=== PATIENT | female | born 1950 | race Caucasian/White ===

== ENCOUNTER 2019-06-21 01:14 | Outpatient (CLI) | payer MEDICARE, BC, SELFPAY ==
--- NOTE | 2019-06-21 10:24 | DI.MAMMO_ITS ---
EXAM: MG MAMMO SCREENING CLINICAL HISTORY: screening TECHNIQUE: Mammograms were interpreted according to the usual protocol including computer analysis w [employer] CAD system, tomosynthesis and C-view imaging. COMPARISON: [id number] FINDINGS: The breasts are composed of heterogeneously dense tissue, which may obscure small masses, breast dens ity category C. There are no suspicious masses or suspicious microcalcifications. There has been no significant chagne when compared with prior images. IMPRESSION: Category 1, negative mammogram. Routine yearly screening is recommended. BI-RADS Cat 1 - Negative Breast Density - Category C - Heterogeneously dense
== END 2019-06-21 01:34 ==
PROVIDERS: PCP Family Medicine; Visit Provider Family Medicine
DX: Z12.31 Encounter for screening mammogram for malignant neoplasm of breast (principal); Z12.11 Encounter for screening for malignant neoplasm of colon; Z80.0 Family history of malignant neoplasm of digestive organs; Z86.010 Personal history of colon polyps
CPT/HCPCS: 77063; 77067

== ENCOUNTER 2019-06-21 07:10 | Outpatient (CLI) | payer MEDICARE, BC, SELFPAY ==
[2019-06-21 07:38] LABS: HCT 41.3 % (36.0-46.0); HGB 13.8 g/dL (12.0-15.5); Mean Corp. HGB Concentration 33.4 g/dL (32.0-36.0); Mean Corpuscular Hemoglobin 30.1 pg (27.0-33.0); Mean Corpuscular Volume 90.2 fL (80-95); Platelet Count 229 x1000/uL (130-400); RBC 4.58 m/cumm (4.00-5.20); RBC Distribution Width 13.2 % (11.7-14.6); White Blood Cell Count 5.42 k/cumm (4.4-10.8)
[2019-06-21 08:05] LABS: Hemoglobin A1C 5.3 % (4.5-6.2)
[2019-06-21 11:15] LABS: Calculated LDL 183 mg/dL; Cholesterol 263 mg/dL (50-200); HDL Cholesterol 50 mg/dL (40-60); Triglyceride 153 mg/dL (30-150); Vitamin B12 643 pg/mL (193-986)
[2019-06-21 16:47] LABS: CRP, High Sensitivity 1.21 mg/L
[2019-06-23 06:02] LABS: Vitamin D 25 Total 67.2 ng/ml (30-100)
== END 2019-06-21 07:30 ==
PROVIDERS: PCP Family Medicine; Visit Provider Family Medicine
DX: F32.9 Major depressive disorder, single episode, unspecified (principal); F98.8 Other specified behavioral and emotional disorders with onset usually occurring in childhood and adolescence; R53.82 Chronic fatigue, unspecified; Z87.898 Personal history of other specified conditions; R00.0 Tachycardia, unspecified; E78.5 Hyperlipidemia, unspecified; R53.83 Other fatigue; M85.80 Other specified disorders of bone density and structure, unspecified site
CPT/HCPCS: 36415; 80061; 82306; 85027; 86141; 82607; 83036; 84443

== ENCOUNTER 2019-06-27 11:09 | Day surgery (SDC) | payer MEDICARE, BC, SELFPAY ==
--- NOTE | 2019-06-27 07:08 | W.COLOREPORT ---
Date of service: 06/27/19 Time of Service: 12:25 Colonoscopy Report Date of procedure: 06/27/19 Pre-op diagnosis general: Hx of polyps and Family history of colon cancer Post-op diagnosis procedure note: same (and diverticulosis and small polyp) Procedure: Colonoscopy with polypectomy by cold forceps Surgeon: Kenyatta Rose Anesthesia proc note operative: other (General/ ASA 2/Cristhian Mckeon, PEDRO) Estimated blood loss (mL): 3 Pathology: other (Transverse polyp) Complications: None Disposition: same day Indications: 68 year old female with a family history of colon cancer in her mother. Her mother was in her early 80s when she was diagnosed with colon cancer. The patient also has a past history of colon polyps. Her last colonoscopy was in 2013. Risks, benefits and complications have been reviewed. Complications include but are not limited to bleeding, pain, perforation, missed small lesion/polyp, sore throat, aspiration and adverse reaction to the medications. Questions were entertained and answered to their satisfaction and they wished to proceed. No guarantees were given or implied. Prep: Miralax/Dulcolax Procedure Start Time: 12:25 Procedure End Time: 12:52 Retraction Time: 15 minutes Findings: small polyp in the transverse colon, internal hemorrhoids and skin tags as well as moderate diverticulosis Procedure Description: After informed consent was obtained the patient was taken to the procedure room and placed in a left decubitous position. Monitors were applied and a time out was done. The patients name, date of , procedure, allergies to medications and metal in their body was reviewed. The patient was then sedated. Once sedated and comfortable a rectal exam was done. External exam was normal. Internal exam revealed a normal sphincter tone and no palpable masses. The scope was then introduced and retro-flexed. Small internal hemorrhoids, and 2 skin tags were identified on retrofelxion.. The scope was then advanced to the cecum without difficulty. The TI and appendiceal orifice were identified. The prep was adequate. The scope was then slowly retracted over 15 minutes back into the rectum. Polyps were removed with cold forceps in the transverse colon. There was moderate diverticulosis of the descending and sigmoid colon. The scope was removed and the patient was woken up and taken back to Same day surgery in stable condition. The patient tolerated the procedure well and there were no immediate complications. Follow up: The patient should follow up in 3-5 years unless they develop changes in bowel habits or other new gastrointestinal complaints.
--- NOTE | 2019-06-27 07:09 | W.PM.DSUDISC ---
Discharge Plan Disposition Patient Disposition: HOME Condition: Good Discharge Details Reason For Visit: Hx of colon polyps, Family history of colon cancer Attending Provider: Kenyatta Rose Primary Care Provider: Beatrice Dickens Home Meds and New Rx's Prescriptions: Continued magnesium glycinate 100 mg tablet 200 mg PO DAILY RF: 0 calcium carbonate [Calcium Antacid] 300 mg (750 mg) tablet,chewable 300 mg PO DAILY RF: 0 niacin 500 mg tablet 500 mg PO DAILY RF: 0 cyanocobalamin (vitamin B-12) 1,000 mcg capsule 1,000 mcg PO DAILY RF: 0 triamcinolone acetonide 0.1 % ointment 1 applic Topical BID PRN (Reason: rash) Qty: 80 RF: 4 vitamin E mixed 400 UNIT capsule 400 unit PO DAILY RF: 0 vitamin A 25,000 UNIT capsule 25,000 units PO 3x/week RF: 0 Fish Oil 500 MG capsule,delayed release(DR/EC) 1,000 mg PO DAILY RF: 0 ascorbic acid (vitamin C) [Vitamin C] 500 MG tablet 500 mg PO DAILY RF: 0 cholecalciferol (vitamin D3) 10,000 UNIT capsule 10,000 unit PO DAILY RF: 0 methylphenidate HCl 10 mg tablet 10 mg PO TID MDD 3 PRNRF: 0 cetirizine 10 mg Tablet 10 mg PO DAILY PRNRF: 0 vit B6-mag cit,oxid-potass cit 3.75-45-45-49.5 mg Tablet Extended Release 66 PO RF: 0 thiamine HCl (vitamin B1) 50 mg Tablet 6.7 mg PO DAILY RF: 0 riboflavin (vitamin B2) 25 mg Tablet 6.7 mg PO DAILY RF: 0 biotin 1,000 mcg Tablet,Chewable 200 mcg PO DAILY RF: 0 chromium chloride 4 mcg/mL Solution 33.3 mcg RF: 0 omega 0-hmc-snk-fish oil [Fish Oil] 1,000 mg (120 mg-180 mg) Capsule 1 cap PO DAILY RF: 0 Discontinued bisacodyl [Dulcolax (bisacodyl)] 5 mg tablet,delayed release (DR/EC) 5 mg PO ONCE Qty: 4 RF: 0 polyethylene glycol 3350 17 gram powder in packet 255 g PO DAILY Qty: 15 RF: 0 Discharge Instructions Instructions: Colonoscopy (DC), Diverticulosis (DC), Hemorrhoids (DC) Additional Instructions: Findings: internal hemorrhoids and skin tags One polyp Diverticulosis Follow up: 3-5 years Please call if you develop: fevers >101.5 Nausea or Vomiting Abdominal pain that is not transient DAY SURGERY UNIT POST ENDOSCOPY INSTRUCTIONS 1. Because there will be medication in your system for the next 24 hours, you may feel a little sleepy. Your coordination will be affected. Therefore: a. Do not drive or operate dangerous equipment for 24 hours. b. Do not drink alcohol beverages for 24 hours (not even beer). c. Plan to go home and rest for the day. 2. Generally there are no restrictions on your activity after a day or so has gone by, but you may feel a bit fatigued for a few days. 3 After you arrive home you may have a light meal and return to a normal diet as you can tolerate it without feeling sick to your stomach. 4. After surgery, you may feel pain or discomfort. This should be only transient, but if it persists please contact your doctor. 5. If there are any questions regarding the findings of your procedure, please feel free to contact your doctor. 6. If you are unable to contact your doctor with a problem, contact the hospital at [phone]. 7. Continue all your regular medications unless directed otherwise. I understand the above instructions and have no questions. Signature of Patient or Responsible Adult Escort Date/Time Name of Responsible Adult Escort Signature of Nurse Date/Time Activity:: Activity as Tolerated Diet:: High Fiber Diet Discharge Orders Discharge Orders: Discharge Order (Routine); Ordered 06/27/19 Ordered By: Kenyatta Rose DS: Diagnosis Discharge Diagnosis (1) Hx of colonic polyps: Status: Acute (2) Family history of colon cancer: Status: Acute (3) Colonoscopy - MAC: Status: None (4) Diverticulosis: Status: Acute
[2019-06-27 11:39] VITALS: BP 115/60; PULSE 62; RESP 16; TEMP 36.5; O2SAT 98
[2019-06-27] MEDS: Lactated Ringers 1,000 ML 80 ML IV (11:45)
--- NOTE | 2019-06-27 12:45 | BOWEL_PTH ---
PATIENT: Sarah Wiggins LOC: [facility] U#:[id number] AGE/SX: 68/F ROOM: RE06/27/[address]: Kenyatta Rose MD : 1950 BED: DIS: 06/27/2019 SPEC #: [id number] RECD: 06/27/19 13:05 STATUS: MARIAM REQ #: [id number] SEBAS: 06/27/19 12:[address]: Kenyatta Rose DEPT: Surgical Specimen RECD BY: Val Garvin ENTERED: 06/27/19 13:06 SP TYPE: Bowel OTHR DR: Beatrice Dickens MD, DC Tissues: 1 - BIOPSY BOWEL Procedures: GROSS AND MICRO LEVEL 4 Comments: [id number]
[2019-06-27 13:25] VITALS: BP 97/64; PULSE 59; RESP 18; TEMP 35.9; O2SAT 99
== END 2019-06-27 14:09 | disposition home or self-care (01) ==
LOC: SUR 11:10
PROVIDERS: PCP Family Medicine; Visit Provider Surgery
PROC: 0DJD8ZZ Inspection of Lower Intestinal Tract, Via Natural or Artificial Opening Endoscopic (ICD-10-PCS; CPT 45378; principal; 2019-06-27 12:30)
DX: Z12.11 Encounter for screening for malignant neoplasm of colon (principal); K63.89 Other specified diseases of intestine; Z86.010 Personal history of colon polyps; K57.30 Diverticulosis of large intestine without perforation or abscess without bleeding; Z80.0 Family history of malignant neoplasm of digestive organs; G47.33 Obstructive sleep apnea (adult) (pediatric)
CPT/HCPCS: 45380; 88305

== ENCOUNTER 2020-03-06 03:24 | Outpatient (CLI) | payer MEDICARE, BC, SELFPAY ==
[2020-03-06 10:33] LABS: ALT 24 U/L (14-59); AST 16 U/L (15-37); Alkaline Phosphatase 77 U/L (46-116); BUN 15 mg/dL (7-18); Bilirubin, Total 0.3 mg/dL (0.2-1.0); CREATININE 0.94 mg/dL (0.55-1.02); Calculated LDL 160 mg/dL (<100); Chloride 104 mmol/L (98-107); Cholesterol 250 mg/dL (<200); Estimated GFR 59.04 (mL/min/1.73m2); Glucose 92 mg/dL (74-106); HDL Cholesterol 44 mg/dL (40-60); Potassium 4.1 mmol/L (3.5-5.1); Sodium 141 mmol/L (136-145); TSH (W/Ref FT4) 0.66 uIU/mL (0.36-3.74); Total Protein 6.9 g/dL (6.4-8.2); Triglyceride 230 mg/dL (<150)
== END 2020-03-06 03:44 ==
PROVIDERS: PCP Family Medicine; Visit Provider Family Medicine
DX: E53.8 Deficiency of other specified B group vitamins (principal); E78.5 Hyperlipidemia, unspecified; R42 Dizziness and giddiness; R53.82 Chronic fatigue, unspecified
CPT/HCPCS: 36415; 80053; 80061; 84443

== ENCOUNTER 2021-02-21 02:45 | Outpatient (CLI) | payer MEDICARE, BC, SELFPAY ==
--- NOTE | 2021-02-21 08:45 | DI.DEXA_ITS ---
Exam(s) XR DEXA BONE DENSITY W/WO KARAN EXAM: XR DEXA BONE DENSITY W/WO KARAN CLINICAL HISTORY: osteoporosis,M81.0 TECHNIQUE: Routine DEXA evaluation of the lumbar spine, hip, or forearm. COMPARISON: Prior DEXA scan performed July 2009 FINDINGS: Performed on a SDI unit. Lateral image: No compression fracture evident. Lumbar Spine total T-score: -1.4 . prior 2008 reading was -0.5 Hip total T-score:0.3 . Prior 2008 reading was 0.8 Forearm total T-score: -0.5 . Prior 2008 reading was 0.8 IMPRESSION: Bone mineral density measures in the osteopenia range. Fracture risk is moderate. Note: Any spine fracture indicates 5x risk for subsequent spine fracture and 2x risk for subsequent h ip fracture. World Health Organization criteria for BMD interpretation classify patients: Normal...... T- Score at or above -1.0 Osteopenic... T- Score between -1.0 and -2.5 Osteoporosis... T-Score at or below -2.5
== END 2021-02-21 03:05 ==
PROVIDERS: PCP Family Medicine; Visit Provider Family Medicine
DX: R93.7 Abnormal findings on diagnostic imaging of other parts of musculoskeletal system; M81.0 Age-related osteoporosis without current pathological fracture
CPT/HCPCS: 77080

== ENCOUNTER 2021-06-06 02:12 | Outpatient (CLI) | payer MEDICARE, BC, SELFPAY ==
--- NOTE | 2021-06-06 11:29 | DI.US_ITS ---
APPROVED REPORT EXAM: Comprehensive 2D, Doppler, and color-flow Echocardiogram Patient Location: Out-Patient Forensic Psychologist: Edwige Combs RDCS (AE) Indications: SOB, Chest pain Other Information Study Quality: Good Conclusion Normal left ventricular wall thickness and chamber size. Estimated ejection fraction is 60%. Wall m otion is normal Normal right ventricular size and systolic function Both atria are normal in size There is no significant valvular disease Normal estimated right ventricular systolic pressure 26 mmHg Borderline dilated ascending aorta Wall motion Left Ventricle The left ventricle is normal size. The left ventricular systolic function is normal. The left ventric ular ejection fraction is within the normal range. There is normal left ventricular wall thickness. T here is normal LV segmental wall motion. There is no ventricular septal defect visualized. LVEF is 61 %. Right Ventricle The right ventricle is normal size. The right ventricular systolic function is normal. The RVSP is 26 .6mmHg. Atria The left atrium size is normal. The right atrium size is normal. The interatrial septum is intact wit h no evidence for an atrial septal defect. Aortic Valve The aortic valve is normal in structure. Aortic valve is trileaflet. There is no aortic valvular sten osis. No aortic regurgitation is present. Mitral Valve The mitral valve is normal in structure. No evidence of mitral valve stenosis. Trace mitral regurgita tion. Tricuspid Valve The tricuspid valve is normal in structure. There is no tricuspid valve stenosis. Mild tricuspid regu rgitation. Pulmonic Valve The pulmonary valve is normal in structure. There is no pulmonic valvular stenosis. There is no pulmo raysa valvular regurgitation. Great Vessels The aortic root is normal in size. The ascending aorta is borderline dilated. IVC is normal in size a nd collapses >50% with inspiration. Pericardium There is no pericardial effusion. 2D Dimensions IVSD d PLAX 0.82 cm F: 0.6-1.0 LV Vol A2C d MOD 73.2 mL LVPW d PLAX 0.83 cm F: 0.6 - 1.0 LV Vol A4C d MOD 61.8 mL LVID d PLAX 4.08 cm F: 3.8 - 5.2 LA vol/ BSA A4C s A-L 13.9 mL/m2 LVDs 2.70 cm F: 2.2 - 3.5 LA Area A4C s MOD 11.31 cm2 Ao Root d 2.99 cm F: 2.7 - 3.3 LV EF A4C MOD 61.3 % RA Area A4C 9.05 cm2 LV EF A2C MOD 61.0 % RA Vol/ BSA A4C s A-L 10.1 mL/m2 LV EF Biplane MOD 61.4 % Ao Asc Diam d 3.38 cm F: 2.3 - 3.1 SV 41.38 mL LV EF Teichholz 61.9 % SV Index 22.88 mL/m2 LVEF (Navarro's) 61.39 % F: 54 - 74 LV Volume 52.34 mL F: 46 - 106 LV Volume Index 28.91 mL/m2 F: 29 - 61 LV Vol Biplane MOD 67.4 mL FS 32.85 % M-Mode TAPSE 2.88 cm (M/F) >1.7 LV Diastology MV E' medial 0.086 (>0.07 m/s) E/A Ratio 0.8 LV E/e MED 8.90 (<14) MV E Vmax 0.76 (0.4-1.3 m/s) MV E' lateral 0.099 (>0.1 m/s) MV A Vmax 1.00 (0.4-1.3 m/s) LV E/e LAT 7.70 (<14) MV E/A Ratio 0.75 MV E/E' medial 8.91 MV E/E' lateral 7.70 Aortic Valve LVOT Area 3.19 cm2 AoV Area Vmax 2.31 cm2 LVOT Vmax 0.96 m/s AoV Area/ BSA (Vmax) 1.28 cm2/m2 LVOT Mean Zenon. 0.58 m/s SANIA Mean Zenon. 2.07 cm2 LVOT Peak Grad 3.7 mmHg SANIA Mean Zenon. Index 1.15 cm2/m2 LVOT Mean Grad 1.6 mmHg LVOT VTI 0.233 m LVOT Diam s 2.00 cm AoV Vmax 1.32 m/s Velocity Ratio 0.72 AoV Mean Zenon. 0.89 m/s AoV Peak Grad 7.0 mmHg LVOT SV 74.22 mL AoV Mean Grad 3.6 mmHg AoV VTI 0.311 m AoV Area VTI 2.39 cm2 AoV Area/ BSA (VTI) 1.32 cm/m2 Mitral Valve MV DT 290 (160-240 msec) MV PHT 84 msec MV Area PHT 2.62 cm2 MV VTI 0.416 m MV Area VTI 1.79 (4.0-6.0 cm2) Pulmonary Valve PV Vmax 0.79 (0.5-1.5 m/s) RVOT Peak Gr. 1.42 mmHg PV Peak Grad 2.5 mmHg RVOT Mean Gr. 0.80 mmHg PV Mean Grad 1.4 mmHg RVOT VTI 0.136 m PV VTI 0.187 m RVOT Vmax 0.60 m/s Tricuspid Valve TR Peak Grad 23.6 mmHg TR Vmax 2.43 m/s RA Pressure 3.00 mmHg RVSP (TR) 26.6 mmHg
--- NOTE | 2021-06-06 12:57 | DI.MAMMO_ITS ---
Exam(s) MAMMO SCREENING EXAM: MAMMO SCREENING CLINICAL HISTORY: screening,z12.39 TECHNIQUE: Bilateral full field digital CC and MLO mammographic images were obtained with 3D tomosyn thesis and utilizing computer aided detection (CAD). COMPARISON: Available for comparison. FINDINGS: Masses/Architectural Distortion: None seen. Microcalcifications: No suspicious pleomorphic-type are seen. Skin Thickening/Nipple Retraction: None. IMPRESSION: 1. No significant interval change with no specific features of malignancy noted. 2. Unless there is more urgent need, screening mammography is recommended, as per [employer] guidelines. BI-RADS Category 1 - Negative Breast Density - Category C - Heterogeneously dense Breast density category C or D implies that the patient has dense breast tissue. Dense breast tissue is very common and is not abnormal but dense breast tissue can make it harder to find cancer on a ma mmogram. Also, dense breast tissue may increase their breast cancer risk. This information about the result of the mammogram report was provided to the patient to raise their awareness. Use this report when you speak with the patient about their risks for breast cancer, which includes their family hist ory. At that time, you may recommend for more screening tests (Ultrasound or MRI) as they might be us eful based on their risk. A negative radiographic report should not delay biopsy if a dominant or clinically suspicious mass is present. Up to ten percent of cancers are not identified on mammography. A negative report may reinforce clinical impression. Adenosis and dense breasts may obscure an underlying neoplasm. False positive reports average 6 to 10%. Patient will receive a letter notifying them of these results.
== END 2021-06-06 02:32 ==
PROVIDERS: PCP Family Medicine; Visit Provider Family Medicine
DX: R07.9 Chest pain, unspecified (principal); Z12.31 Encounter for screening mammogram for malignant neoplasm of breast; R06.02 Shortness of breath; I77.810 Thoracic aortic ectasia
CPT/HCPCS: 77063; 77067; 93306

== ENCOUNTER 2021-06-06 03:13 | Outpatient (CLI) | payer MEDICARE, BC, SELFPAY ==
[2021-06-06 11:09] LABS: HGB 13.2 g/dL (11.2-15.7); MCH 29.3 pg (27.0-33.0); MCV 88.9 fL (80-95); MPV 9.8 fL (8.0-11.0); Platelet Count 210 10^3/uL (130-400); RDW 12.9 % (11.7-14.6); RDW-SD 42.1 fL; WBC 5.31 10^3/uL (4.4-10.8)
[2021-06-06 13:32] LABS: Vitamin D 25 Total 33.9 ng/mL (30-100)
[2021-06-06 13:38] LABS: ALT 45 U/L (14-59); AST 23 U/L (15-37); Alkaline Phosphatase 81 U/L (46-116); Anion Gap 9.4 mmol/L (3-11); BUN 16 mg/dL (7-18); Bilirubin, Total 0.2 mg/dL (0.2-1.0); CO2 27.6 mmol/L (21.0-32.0); CREATININE 0.9 mg/dL (0.55-1.02); Calcium 8.9 mg/dL (8.5-10.1); Chloride 105 mmol/L (98-107); Glucose 90 mg/dL (74-106); Potassium 4.2 mmol/L (3.5-5.1); Sodium 142 mmol/L (136-145); Total Protein 7.3 g/dL (6.4-8.2); Vitamin B12 470 pg/mL (193-986)
== END 2021-06-06 03:14 | disposition home or self-care (01) ==
LOC: LBO 03:13
PROVIDERS: PCP Family Medicine; Visit Provider Family Medicine
DX: E78.5 Hyperlipidemia, unspecified; R53.83 Other fatigue; N39.0 Urinary tract infection, site not specified; M81.0 Age-related osteoporosis without current pathological fracture; D49.2 Neoplasm of unspecified behavior of bone, soft tissue, and skin; M85.88 Other specified disorders of bone density and structure, other site
CPT/HCPCS: 36415; 80053; 82306; 85027; 82607; 83735

== ENCOUNTER 2023-02-10 02:07 | Outpatient (CLI) | payer MEDICARE, BC, SELFPAY ==
[2023-02-10 09:10] LABS: ALT 48 U/L (14-59); AST 26 U/L (15-37); Albumin 3.8 g/dL (3.4-5.0); Alkaline Phosphatase 82 U/L (46-116); Anion Gap 8.7 mmol/L (3-11); BUN 14 mg/dL (7-18); Bilirubin, Total 0.2 mg/dL (0.2-1.0); CO2 26.3 mmol/L (21.0-32.0); Calcium 8.7 mg/dL (8.5-10.1); Calculated LDL 136 mg/dL (<100); Chloride 107 mmol/L (98-107); Cholesterol 209 mg/dL (<200); Glucose 92 mg/dL (74-106); HDL Cholesterol 44 mg/dL (40-60); Potassium 3.9 mmol/L (3.5-5.1); Sodium 142 mmol/L (136-145); TSH (W/Ref FT4) 1.33 uIU/mL (0.36-3.74); Total Protein 7.3 g/dL (6.4-8.2); Triglyceride 147 mg/dL (<150)
[2023-02-10 09:29] LABS: CREATININE 1.1 mg/dL (0.55-1.02); Estimated GFR 53.39 (mL/min/1.73m2); NT-proBNP 36 pg/mL (<300)
== END 2023-02-10 02:08 | disposition home or self-care (01) ==
PROVIDERS: PCP Family Medicine; Visit Provider Family Medicine
DX: R06.02 Shortness of breath (principal); R53.83 Other fatigue; E78.5 Hyperlipidemia, unspecified
CPT/HCPCS: 36415; 80053; 80061; 94060; 94726; 94729; 83880; 84443

== ENCOUNTER 2023-02-10 02:15 | Outpatient (CLI) | payer MEDICARE, BC, SELFPAY ==
[2023-02-10] MEDS: Albuterol HFA 18 GM 200 PUFF INH IH (09:32)
[2023-02-10] MEDS: Inhaler, Assist Device 1 EACH MC (09:33)
--- NOTE | 2023-02-17 15:35 | W.PFT ---
Date of service: 02/10/23 Time of Service: 07:58 Pulmonary Function Test Result Indications: Chest Burning Interpretation Spirometry: No airflow limitation. No significant bronchodilator response. Lung Volumes: There is hyperinflation. Diffusion Capacity: Normal diffusion. Airway Pressure: Normal airways resistance. Impression Isolated hyperflation - this can represent asthma in the correct clinical situation. Clinical Correlation therefore is recommended.
--- NOTE | 2023-02-19 16:13 | W.PFT ---
Date of service: 02/10/23 Time of Service: 07:58 Pulmonary Function Test Result Indications: Chest burning Interpretation Spirometry: There is no airflow limitation. There is no significant bronchodilator response. Lung Volumes: Normal lung volumes. Diffusion Capacity: Normal diffusion. Airway Pressure: Normal airways resistance Impression Normal pulmonary function testing Clinical Correlation therefore is recommended.
== END 2023-02-10 02:16 | disposition home or self-care (01) ==
LOC: RT 02:15
PROVIDERS: PCP Family Medicine; Visit Provider Family Medicine
DX: R06.02 Shortness of breath (principal); Z86.16 Personal history of COVID-19; J45.909 Unspecified asthma, uncomplicated
CPT/HCPCS: 94060; 94726; 94729

== ENCOUNTER → 2024-04-04 18:51 | Outpatient (CLI) | payer MEDICARE, BC, SELFPAY ==
--- NOTE | 2024-04-04 12:49 | DI.RAD_ITS ---
Exam(s) XR LUMBAR SPINE COMPLETE EXAM: XR LUMBAR SPINE COMPLETE CLINICAL HISTORY: low back pain, charity hip pain, M25.551, M25.552. TECHNIQUE: 2D digital imaging was performed. COMPARISON: CR XR DEXA BONE DENSITY W/WO KARAN from 02/21/2021 FINDINGS: Five views No evidence of fracture or listhesis. No scoliosis. Mild disc space narrowing L5-S1 anterior osseou s lipping at this level as well as anterior osseous lipping at L4-5 level. There is no significant d isc space narrowing in the lumbar spine. There is some facet arthropathy at L4-5 and L5-S1 levels. The sacroiliac joints appear unremarkable. Bone density normal. No osseous lesions. IMPRESSION: Evidence of bilateral facet arthropathy L4-5 and L5-S1 levels. Mild disc space narrowing at L5-S1 level. DATA REPOSITORY: RADIATION DOSE DELIVERED:
--- NOTE | 2024-04-04 12:49 | DI.RAD_ITS ---
Exam(s) XR HIP PELVIS ADULT BL EXAM: XR HIP PELVIS ADULT BL CLINICAL HISTORY: hip pain rt, M25.551, hip pain lt, M25.552. TECHNIQUE: 2D digital imaging was performed. COMPARISON: No exams were available for comparison FINDINGS: 3 views No evidence of pelvic nor hip fractures. Bone density normal. No osseous lesions. No hip joint spa ce narrowing. Additional lateral views of both hips do not reveal osteophytes nor joint space narrow ing. However, on the lateral views there are small bony excrescence is seen off both femoral necks w hich may be related to an element of cam-type EMMA Sacroiliac joints appear unremarkable. IMPRESSION: No acute osseous findings in the pelvis and hips. No suggestion of can-type MRI acetabular impingement in both hips. DATA REPOSITORY: RADIATION DOSE DELIVERED:
--- OUTSIDE RECORDS SUMMARY | 2024-04-04 18:54 | XMS_ITS | Encounter Summary ---
Author Organization [facility] Address [address] [place] [address] Care Team Providers Care Square Shear Operator Name Role Phone Beatrice Dickens MD Primary Care Provider [phone] Encounter Details Date Type Department Care Team ([facility] st Contact Info) Description 07/07/2017 Pre-Procedure Orders Encounter [facility] General Surgery Unit [address] [place], [place] [address] Tish Zamora MD [address] [facility] [address] [place] [phone] External hemorrhoid (Primary Dx) Social History Tobacco Use Types Packs/Day Years Used Date Smoking Tobacco: Never Smokeless Tobacco: Never Alcohol Use Standard Drinks/Week Comments Yes 0 (1 standard drink = 0.6 oz pur e alcohol) rare Sex and Gender Information Value Date Recorded Sex Assigned at Not on file Gender Identity Not on file Sexual Orientation Not on file documented as of this encounter Plan of Treatment Not on file documented as of this encounter Visit Diagnoses Diagnosis External hemorrhoid- Primary External hemorrhoids without mention of complication documented in this encounter Care Teams Square Shear Operator Relationship Specialty Start Date End Date Beatrice Dickens MD [address] [place] [address] [address] [place] [id number] PCP - General 12/06/13 documented as of this encounter
--- OUTSIDE RECORDS SUMMARY | 2024-04-04 18:54 | XMS_ITS | Encounter Summary ---
Author Organization [facility] Address [address] [place] [address] Care Team Providers Care Skidder Loader Name Role Phone Beatrice Dickens MD Primary Care Provider [phone] Encounter Details Date Type Department Care Team ([facility] st Contact Info) Description 07/22/2019 Historical Results Only [facility] Lab - Main [place] [address] [place], [place] [id number] Cori Christensen PA-C [address] [facility] [place], [place] [id number] Social History Tobacco Use Types Packs/Day Years Used Date Smoking Tobacco: Never Smokeless Tobacco: Never Alcohol Use Standard Drinks/Week Comments Yes 0 (1 standard drink = 0.6 oz pur e alcohol) rare Sex and Gender Information Value Date Recorded Sex Assigned at Not on file Gender Identity Not on file Sexual Orientation Not on file documented as of this encounter Functional Status Functional Status Response Date of Assess ment Are you deaf or do you have serious difficulty h earing? No 07/08/2017 Are you blind or do you have serious difficulty seeing, even when wearing glasses? No 07/08/2017 Do you have serious difficul ty walking or climbing stairs? (5 years old or older) No 07/08/2017 Do you have difficulty dress ing or bathing? (5 years old or older) No 07/08/2017 Because of a physical, menta l, or emotional condition, does this person have difficulty doing errands alone such as visiting a doctor's office or shopping? No 08/12/2017 Cognitive Status Response Date of Assessm ent Because of a physical, menta l, or emotional condition, does this person have serious difficulty concentrating, remembering, or making decisions? No 08/12/2017 documented as of this encounter Plan of Treatment Not on file documented as of this encounter Procedures Procedure Name Priority Date/Time Associated Diagnosis Comments BACTERIAL CULTURE, URINE Routine 07/22/2019 10:13 EST documented in this encounter Results * BACTERIAL CULTURE, URINE (07/22/2019 10:13 EST) Urine Culture NEW ESBL RESULTS CALLED TO [facility] [place], 07/25/19 0923 07/25/2019 9:23 EST [facility] 07/25/2019 9:23 [facility] CitrateConcentration 10,000-100,00 0 CFU/ML 07/25/2019 9:23 [facility] 07/22/2019 10:1 3 EST 07/22/2019 12:42 EST Comment:VOID Narrative Organism Antibiotic Method Susceptibility Escherichia coli Ampicillin Sulbactam GRAM NEGAT COURT SUSCEPTIBILITY - [facility] >=32: Resistant Escherichia coli Ampicillin GRAM NEGATIVE SUSCEPTIBILITY - [facility] >=32: Resistant Escherichia coli Amoxicillin Clavulan ic acid GRAM NEGATIVE SUSCEPTIBILITY - [facility] 8: Susceptible Escherichia coli Ceftriaxone GRAM NEGATIVE SUSCEPTIBILITY - [facility] >=64: Resistant Escherichia coli Cefazolin GRAM NEGATIVE SUSCEPTIBILITY - [facility] >=64: Resistant Escherichia coli Ciprofloxacin GRAM NEGATIVE SUSCEPTIBILITY - [facility] <=0.25: Susceptible Escherichia coli Cefepime GRAM NEGATIVE SUSCEPTIBILITY - [facility] 2: Resistant Escherichia coli Ertapenem GRAM NEGATIVE SUSCEPTIBILITY - [facility] <=0.5: Susceptible Escherichia coli Nitrofurantoin GRAM NEGATIVE SUSCEPTIBILITY - [facility] <=16: Susceptible Escherichia coli Gentamicin GRAM NEGATIVE SUSCEPTIBILITY - [facility] <=1: Susceptible Escherichia coli Levofloxacin GRAM NEGATIVE SUSCEPTIBILITY - [facility] <=0.12: Susceptible Escherichia coli Piperacillin Tazobactam GRAM NEGATIVE SUSCEPTIBILITY - [facility] <=4: Susceptible Escherichia coli Trimethoprim-Sulfame th oxazole GRAM NEGATIVE SUSCEPTIBILITY - [facility] <=20: Susceptible Escherichia coli Tobramycin GRAM NEGATIVE SUSCEPTIBILITY - [facility] <=1: Susceptible Comment:See Reason(s) for St ud[facility] Cori Christensen PA-C MICROBIOLOGY - GENERAL ORDERABLES [facility] documented in this encounter Visit Diagnoses Not on filedocumented in this encounter Care Teams Skidder Loader Relationship Specialty Start Date End Date Beatrice Dickens MD [address] [place] [phone] PCP - General 12/06/13 documented as of this encounter
--- OUTSIDE RECORDS SUMMARY | 2024-04-04 18:54 | XMS_ITS | Encounter Summary ---
Author Organization [facility] Address [address] [place] [address] Care Team Providers Care Plant Facilities Technician Name Role Phone Beatrice Dickens MD Primary Care Provider [phone] Encounter Details Date Type Department Care Team (Latest Contact Info) Description 03/11/2022 [place] [address] Social History Tobacco Use Types Packs/Day Years Used Date Smoking Tobacco: Never Smokeless Tobacco: Never Alcohol Use Standard Drinks/Week Comments Yes 0 (1 standard drink = 0.6 oz pur e alcohol) rare Interpersonal Safety Answer Date Record ed Physically Hurt Never 04/01/2020 Verbally Threaten Not on file 04/01/2020 Sex and Gender Information Value Date Recorded [...] No 08/12/2017 documented as of this encounter Progress Notes * Rosie Ewing, PT - 03/11/2022 1130 EDT Outpatient Rehab Plan of Care ASSESSMENT Therapy Diagnosis: pain and decreased ROM of the jaw secondary to Bilat TMJ OA, cervicalgia, and masseter tightness Problem List: Decreased ROM, Need for an independent home exercise program, Pain and Postural deviation Assessment: Client is presenting with pain and soft tissue restrictions consistent with TMJDS. Notable tension and TTP bilat but R greater than the L. Responded well to stretches and the Realigning exercises. Was able to perform the rotation and translation exercises (phase 1) with no clicking of the R TMJ. Equipment Needed: none Barriers to Learning: none Potential Barriers to Progress: degenerative changes and long history of malalignment Response to Evaluation: Well Rehabilitation Potential: Motivation/Commitment to Therapy: Good Rehabilitation Potential: Good Short-Term Goals Timeframe: 4 weeks ( 04/08/22) Goals: Client to report compliance with HEP Client to report decreased clicking in the R TMJ with eating and yawning Client to report dcreased pain and tension in neck and jaw mm's. Long-Term Goals Timeframe: 8 weeks (05/06/22) Goals: Client to be independent with HEP and to tolerate progression of exercises to mandibular stabilization exercises -resisted ex's at one knuckle width apart with no added pain. Client ot have improved neck and Jaw ROM demonstrating decreased soft tissue tension To report minimal to no clicking with chewing foods PLAN Medical Necessity: Therapy intervention is indicated in order to return to a premorbid level of function or significantly improve current level of function. Physical Therapy is recommended for: Treatment Frequency/ Duration: 1 time per week for 8 sessions Therapy Treatment to include: 49084 - Therapeutic Exercise, 86205 - Neuromuscular Re-education and 87719 - Manual Therapy Recommended Consults: none currently Development of Plan of Care: Patient participated in development of plan of care today. Plan for next visit: manual therapy and review of HEP and progression as tolerated The patient has been instructed to contact our clinic if any questions or problems should arise Total treatment time: 60 minutes. Timed code treatment minutes: 15 minutes ATTENDING PHYSICIAN: Medicare certification needed. Your signature indicates you approve the therapy goals and plan of care outlined on this document dated 03/11/2022. Thank you! Attending Physician Signature Date ROSIE EWING PT 03/11/2022 11:29 documented in this encounter Plan of Treatment Not on file documented as of this encounter Visit Diagnoses Not on filedocumented in this encounter Care Teams Plant Facilities Technician Relationship Specialty Start Date End Date Beatrice Dickens MD [facility] [address] [place] [address] PCP - General 12/06/13 documented as of this encounter
--- OUTSIDE RECORDS SUMMARY | 2024-04-04 18:54 | XMS_ITS | Encounter Summary ---
Author Organization [facility] Address [address] [place] [address] Care Team Providers Care Reflector Driller And Deburrer Name Role Phone Beatrice Dickens MD Primary Care Provider [phone] Reason for Visit * Reason Comments Post-OP Follow Up post op excisional h emorrhoidectomy Encounter Details Date Type Department Care Team ([facility] Contact Info) Description 08/12/2017 13:45 EST Post-op Visit [facility] General Surgery - [address] [id number] Tish Zamora MD [address] [facility], [address] [place] [address] External hemorrhoid (Primary Dx) Social History Tobacco [...] on file documented as of this encounter Last Filed Vital Signs Vital Sign Reading Time Taken Comments Blood Pressure 110/74 08/12/2017 1345 EST Pulse 80 08/12/2017 1345 EST Temperature - - Respiratory Rate - - Oxygen Saturation - - Inhaled Oxygen Concentration - - Weight 71.7 kg (158 lb) 08/12/2017 1345 EST Height 162.6 cm (5' 4.02) 08/12/2017 1345 EST Body Mass Index 27.11 08/12/2017 1345 EST documented in this encounter Functional Status Functional Status Response [...] No 08/12/2017 documented as of this encounter Patient Instructions * Patient Instructions* Tish Zamora MD - 08/12/2017 13:45 EST Goal is 30gms of fiber a day. Maintain a high fiber diet (bran cereals, whole grain breads, lots of fruits and vegetables). Drink lots of water (at least 2L) throughout the day. Consider starting fiber supplementation--I would use the powder version rather than the pills: Benefiber (wheat dextran) 2 teaspoons, 1-3 times a day in a large glass of water. If too crampy/bloated, try synthetic fiber supplement (Beneful, Citrucel, FiberCon etc.) titrate to a toothpaste consistency bowel movement If stools are still hardened, use colace (over the counter stool softener) 100 mg 1-2 times daily If still having troubles with hardened stool, try miraLAX 1 cap 1-2 times daily Try putting your feet up on a 6-8inch stool (squatty potty). This may help you empty your rectum asit will straighten out your anorectal angle. Fiber will help bulk and soften your stools and prevent anal leakage which is a common cause of itching. Goal is 30gms of fiber a day. Maintain a high fiber diet (bran cereals, whole grain breads, lots of fruits and vegetables). Consider starting fiber supplementation--I would use the powder version rather than the pills: Benefiber (wheat dextran) 2 teaspoons, 1-3 times a day in a large glass of water. If too crampy/bloated, try synthetic fiber supplement (Beneful, Citrucel, FiberCon etc.) titrate to a toothpaste consistency bowel movement DO NOT USE ANY SOAP or medicated wipes (even if it is specified a gentle soap) when cleaning yourbottom--only water. After showering ensure your bottom is completely dry by using a hairdryer on the cold setting. Do not rub dry with a coarse towel. You may apply a thin layer of Calmoseptine. Can use a dry cotton gauze tucked between the cheeks at night to stay dry Avoid acidic foods and drinks, alcohol, caffeine documented in this encounter Progress Notes * Tish Zamora MD - 08/12/2017 8845 EST Subjective: Patient underwent excisional hemorrhoidectomy RP, LL including and inflammatory polyp 07/08. Pathology consistent with prolapsing tissue. She was kept overnight for her central sleep apnea. She is now having 1 or 2 soft bowel movements per day. She does have some urgency with them. She uses Colace and MiraLAX. She does not use fiber. Patient followed with Dr. Becerril in 2013 for internal hemorrhoids. She was banded at this point. Shestates that he had talked about surgery for some of the external hemorrhoid component, but she had not felt ready for that that time. Prior colonoscopy: March [address] Velez, normal colonoscopy. In 2005, she had a tubular adenoma in the sigmoid colon. Family history: Mother with colon cancer in her early 80s, 1 brother and 3 sisters with polyps. No inflammatory bowel disease. Current Outpatient Prescriptions: acetaminophen (TYLENOL) 500 mg tablet ascorbic acid, vitamin C, (VITAMIN C) 500 mg tablet cetirizine (ZYRTEC) 10 mg tablet Cholecalciferol, Vitamin D3, 2,000 unit capsule Chromium 200 mcg tablet cyanocobalamin (VITAMIN B-12) 500 mcg tablet docusate sodium (COLACE) 100 mg capsule folic acid (FOLVITE) 1 mg tablet ibuprofen (MOTRIN) 200 mg tablet tlazpl-notwlaps-jtokkkd (ZENPEP) 10,000-34,000 -55,000 unit per capsule Magnesium Glycinate 100 mg tablet methylphenidate (RITALIN;METHYLIN) 10 mg tablet naloxone (NARCAN) 4 mg/actuation nasal spray Yvoxx-3-NFX-EPA-Fish Oil (FISH OIL) 1,000 mg (120 mg-180 mg) capsule propranolol (INDERAL) 40 mg tablet tocopheryl acetate (VITAMIN E) 100 unit capsule Triamcinolone Acetonide (KENALOG) 0.025 % Lotion vitamin A 10,000 unit capsule No current facility-administered medications for this visit. There were no vitals taken for this visit. Objective: General: Alert and oriented x 3, in no apparent distress On external rectal exam, patient has well-healing hemorrhoidectomy sites with some external skin tags. A/P: Status post hemorrhoidectomy 2 columns for internal/external hemorrhoids with inflammatory polyp. We discussed today that she needs to continue to need to keep her stool softener avoid straining. Give patient instructions for fiber therapy as this may help her have less urgency and also soften her stool. She may follow-up on an as-needed basis. documented in this encounter Plan of Treatment Not on file documented as of this encounter Visit Diagnoses Diagnosis External hemorrhoid- Primary External hemorrhoids without mention of complication documented in this encounter Care Teams Reflector Driller And Deburrer Relationship Specialty Start Date End Date Beatrice Dickens MD [address] [place] [id number] PCP - General 12/06/13 documented as of this encounter
--- OUTSIDE RECORDS SUMMARY | 2024-04-04 18:54 | XMS_ITS | Encounter Summary ---
Author Organization [facility] Address [address] [place] [address] Care Team Providers Care Fruit Canner Name Role Phone Beatrice Dickens MD Primary Care Provider [phone] Reason for Visit * Reason Onset Date Comments Other 07/06/2017 meds and recover y Encounter Details Date Type Department Care Team ([facility] Contact Info) Description 07/06/2017 Telephone [facility] General Surgery - [address] [id number] Tish Zamora MD [address] [facility], [address] [place] [address] Other (meds and recovery) Social History Tobacco Use Types Packs/Day Years Used Date Smoking Tobacco: Never Smokeless Tobacco: Never Alcohol Use Standard Drinks/Week Comments Yes 0 (1 standard drink = 0.6 oz pur e alcohol) rare Sex and Gender Information Value Date Recorded Sex Assigned at Not on file Gender Identity Not on file Sexual Orientation Not on file documented as of this encounter Miscellaneous Notes * Telephone Encounter - Lindsey Graham RN - 07/06/2017 4784 EST Phone call to patient to review post op recovery, diet, activity and bowel medications after external hemorrhoid and skin tag removal. She states understanding and will call with any other questions or concerns. * Telephone Encounter - Georgette Conn - 07/06/2017 1442 EST Patient would like to discuss medication and recovery documented in this encounter Plan of Treatment Not on file documented as of this encounter Visit Diagnoses Not on filedocumented in this encounter Care Teams Fruit Canner Relationship Specialty Start Date End Date Beatrice Dickens MD [address] [place] [address] [address] [place] [id number] PCP - General 12/06/13 documented as of this encounter
--- OUTSIDE RECORDS SUMMARY | 2024-04-04 18:54 | XMS_ITS | Encounter Summary ---
Author Organization [facility] Address [address] [place] [address] Care Team Providers Care Medical And Health Services Manager Name Role Phone Beatrice Dickens MD Primary Care Provider [phone] Encounter Details Date Type Department Care Team (Late st Contact Info) Description 08/10/2017 Abstract [facility] Gastroenterology - [address] [id number] Tish Zamora MD [address] [facility], [address] [place] [address] Social History Tobacco Use Types Packs/Day Years [...] a physical, menta l, or emotional condition, do you have difficulty doing errands alone such as visiting a doctor's office or shopping? (15 years old or older) No 07/08/2017 Cognitive Status Response Date of Assessm ent Because of a physical, menta l, or emotional condition, do you have serious difficulty concentrating, remembering, or making decisions? (5 years old or older) No 07/08/2017 documented as of this encounter Plan of Treatment Not on file documented as of this encounter Visit Diagnoses Not on filedocumented in this encounter Care Teams Medical And Health Services Manager Relationship Specialty Start Date End Date Beatrice Dickens MD [address] [place], [place] [address]Y [address] [place] [address] PCP - General 12/06/13 documented as of this encounter
--- OUTSIDE RECORDS SUMMARY | 2024-04-04 18:54 | XMS_ITS | Encounter Summary ---
Author Organization [facility] Address [address] [place] [address] Care Team Providers Care Emergency Management Program Specialist Name Role Phone Beatrice Dickens MD Primary Care Provider [phone] Reason for Visit * Reason Onset Date Comments Results 07/25/2019 Encounter Details Date Type Department Care Team ([facility] Contact Info) Description 07/25/2019 [facility]phone [facility] [address] [place] [address] Xiomara Orozco, RN Results Social History Tobacco Use Types Packs/Day Years [...] No 08/12/2017 documented as of this encounter Miscellaneous Notes * Telephone Encounter - Xiomara Orozco RN - 07/25/2019 1200 EST Patient notified of lab results on 07/25/19. Patient requested that lab results be faxed to her PCP. Administrative staff faxed lab results to PCP. * Telephone Encounter - Yamileth Natarajan PA - 07/25/2019 0932 EST Ok, please contact the patient to let her know her urine culture grew e. Coli that is resistant to several antibiotics, called ESBL. This will be important for her to relay to future visits with concern for UTI. She is taking the correct antibiotic and should finish it as prescribed. Thanks. * Telephone Encounter - Xiomara Orozco RN - 07/25/2019 0923 EST Lolita from the [facility] [place] contacted the clinic on 07/25/19 to report the following urine result: New ESBL. documented in this encounter Plan of Treatment Not on file documented as of this encounter Visit Diagnoses Not on filedocumented in this encounter Care Teams Emergency Management Program Specialist Relationship Specialty Start Date End Date Beatrice Dickens MD [address] [place], [place] [address]Y [address] [place] [address] PCP - General 12/06/13 documented as of this encounter
--- OUTSIDE RECORDS SUMMARY | 2024-04-04 18:54 | XMS_ITS | Encounter Summary ---
Author Organization [facility] Address [address] [place] [address] Care Team Providers Care Fine Unhairer Name Role Phone Beatrice Dickens MD Primary Care Provider [phone] Reason for Visit * Reason Comments Urinary Tract Infection Sx began 07/20 A M, burining, discomfort, frequency Encounter Details Date Type Department Care Team ([facility] Contact Info) Description 07/22/2019 9:15 EST [facility] [address] [place] [id number] Cori Christensen PA-C [address] [facility] [address] [place] [address] Dysuria (Primary Dx) Social History Tobacco Use Types [...] Sign Reading Time Taken Comments Blood Pressure 118/70 07/22/2019 0944 EST Pulse 72 07/22/2019 0944 EST Temperature 36.7 ??C (98.1 ??F) 07/22/2019 0944 EST Respiratory Rate 16 07/22/2019 0944 EST Oxygen Saturation 97% 07/22/2019 0944 EST Inhaled Oxygen Concentration - - Weight - - Height - - Body Mass Index - - documented in this encounter Functional Status Functional [...] No 08/12/2017 documented as of this encounter Ordered Prescriptions Prescription Sig Dispensed Refills Start Date End Da te ciprofloxacin HCl (CIPRO) 500 mg tabletIndications:Dysuria Take 1 Tab by mouth 2 times daily for 7 days. 14 Tab 07/22/2019 07/29/2019 documented in this encounter Progress Notes * Cori Christensen - 07/22/2019 0915 EST Subjective: Sarah Wiggins is a 68 y.o. female who complains of dysuria, frequency, urgency She has had symptoms for 2 days.Patient denies back pain, cough, fever and vaginal discharge. Her last UTI was in Mar 2019 - was initially started on macrobid and changed after culture results returned to augmentin- this culture was done in [place]. Patient does not have a history of pyelonephritis. Current Outpatient Medications Medication Sig Dispense Refill ??? acetaminophen (TYLENOL) 500 mg tablet Take 0.5-1.5 Tabs by mouth every 4 hours as needed for Pain. ??? ascorbic acid, vitamin C, (VITAMIN C) 500 mg tablet Take 500 mg by mouth daily. ??? cetirizine (ZYRTEC) 10 mg tablet Take 10 mg by mouth daily. ??? Cholecalciferol, Vitamin D3, 2,000 unit capsule Take 10,000 mg by mouth. ??? Chromium 200 mcg tablet Take by mouth daily. ??? ciprofloxacin HCl (CIPRO) 500 mg tablet Take 1 Tab by mouth 2 times daily for 7 days. 14 Tab 0 ??? cyanocobalamin (VITAMIN B-12) 500 mcg tablet Take 500 mcg by mouth daily. ??? docusate sodium (COLACE) 100 mg capsule Take 1 Cap by mouth 2 times daily as needed for Constipation. (Patient not taking: Reported on 07/22/2019) ??? folic acid (FOLVITE) 1 mg tablet Take 400 mcg by mouth daily. ??? ibuprofen (MOTRIN) 200 mg tablet Take 200 mg by mouth as needed for Pain. Reported on 01/06/2017 ??? zhtlvm-ompitrng-dezwxtn (ZENPEP) 10,000-34,000 -55,000 unit per capsule Take 1 Cap by mouth daily. ??? Magnesium Glycinate 100 mg tablet Take 300 mg by mouth. ??? methylphenidate (RITALIN;METHYLIN) 10 mg tablet Take 10 mg by mouth 3 times daily. ??? naloxone (NARCAN) 4 mg/actuation nasal spray 1 [place] by nasal route as needed for Opioid Reversal. (Patient not taking: Reported on 07/22/2019) 2 Each 0 ??? Eymmu-6-QKL-EPA-Fish Oil (FISH OIL) 1,000 mg (120 mg-180 mg) capsule Take by mouth. ??? propranolol (INDERAL) 40 mg tablet Take 10 mg by mouth as needed. ??? tocopheryl acetate (VITAMIN E) 100 unit capsule Take 400 Units by mouth daily. ??? Triamcinolone Acetonide (KENALOG) 0.025 % Lotion by topical (top) route 2 times daily. Reportedon 01/06/2017 ??? vitamin A 10,000 unit capsule Take 5,000 Units by mouth three times a week. No current facility-administered medications for this visit. Review of Systems Review of Systems Constitutional: Negative for chills and fever. Gastrointestinal: Negative for nausea and vomiting. Genitourinary: Positive for dysuria, frequency and urgency. Negative for flank pain and hematuria. Objective: Constitutional: She appears well-developed and well-nourished. Abdominal: Soft. Bowel sounds are normal. She exhibits no distension. There is no tenderness. Thereis no guarding. Mild suprapubic tenderness, otherwise non tender Musculoskeletal: No CVA tenderness Laboratory: Results for orders placed or performed in visit on 07/22/19 POCT URINE DIPSTICK, CLINITEK ORDER Result Value Ref Range Color, UA Yellow Clarity, UA Cloudy Glucose, UA Negative . mg/dL Bilirubin, UA Negative . Ketones, UA Negative . mg/dL Spec Grav, UA 1.010 . Blood, UA Large . pH, UA 6.0 4.6 - 8.0 Protein, UA 2+ (A) . mg/dL Urobilinogen, UA 0.2 0.2 - 1.0 E.U./dL Nitrite, UA Negative . Leuk Esterase Large . Comment Assessment and Plan: Sarah was seen today for urinary tract infection. Diagnoses and all orders for this visit: Dysuria - POCT URINE DIPSTICK, CLINITEK ORDER - ciprofloxacin HCl (CIPRO) 500 mg tablet; Take 1 Tab by mouth 2 times daily for 7 days. - BACTERIAL CULTURE, URINE; Future 68yo female presenting for dysuria/frequency/urgency x2d, recent UTI in Mar 2019 tx with augmentin after initally started on macrobid. Given likelihood of resistance, and sulfa allergy will initiate ciprofloxacin and culture. If worsening sx (fever, back pain) go to ED. Reviewed prevention techniques, pt's questions were answered. documented in this encounter Plan of Treatment Not on file documented as of this encounter Procedures Procedure Name Priority Date/Time Associated Diagnosis Comments POCT URINE CLINITEK (DIPSTICK) - DOES NOT REFLEX Routine 07/22/2019 9:33 EST Dysuria documented in this encounter Results * (ABNORMAL) POCT URINE DIPSTICK, CLINITEK ORDER (07/22/2019 9:33 EST) Color, UA Yellow POINT OF C ARE [facility] Clarity, UA Cloudy POINT OF CARE [facility] Glucose, UA Negative . mg/dL POINT OF CARE [facility] Bilirubin, UA Negative . POINT OF CARE [facility] Ketones, UA Negative . mg/dL POINT OF CARE [facility] Spec Grav, UA 1.010 . POINT OF CARE [facility] Blood, UA Large . POINT OF C ARE [facility] pH, UA 6.0 4.6 - 8.0 POINT OF C ARE [facility] Protein, UA 2+(A) . mg/dL POINT OF CARE [facility] Comment:100mg Urobilinogen, UA 0.2 0.2 - 1.0 E.U./dL POINT OF CARE [facility] Nitrite, UA Negative . POINT OF CARE [facility] Leuk Esterase Large . POINT OF CARE [facility] Comment POINT OF C ARE [facility] Urine 07/22/2019 9:33 EST Cori Christensen PA-C URINALYSIS OR DERABLES POINT OF CARE [facility] documented in this encounter Visit Diagnoses Diagnosis Dysuria- Primary documented in this encounter Care Teams Fine Unhairer Relationship Specialty Start Date End Date Beatrice Dickens MD [address] [place] [address] PCP - General 12/06/13 documented as of this encounter
--- OUTSIDE RECORDS SUMMARY | 2024-04-04 18:54 | XMS_ITS | Encounter Summary ---
Author Organization [facility] Address [address] [place] [address] Care Team Providers Care Flavoring Oil Filterer Name Role Phone Beatrice Dickens MD Primary Care Provider [phone] Reason for Visit * Reason Onset Date Comments Post-OP Follow Up 07/21/2017 had surgery 2 weeks ago and wants to discuss taking care of her wound Encounter Details Date Type Department Care Team (Late st Contact Info) Description 07/21/2017 Telephone [facility] General Surgery - [facility] [address] [place], [place] [phone] Tish Zamora MD [address] [facility], [address] [place] [address] Post-OP Follow Up (had surgery 2 weeks ago and wants to discuss taking care of her wound) Social History Tobacco Use Types Packs/Day Years [...] No 07/08/2017 documented as of this encounter Miscellaneous Notes * Telephone Encounter - Anat Duff RN - 07/22/2017 1200 EST OPERATIVE REPORT ?? SERVICE DATE: 07/08/2017 ?? SURGEON: Tish Zamora MD ?? STREET CLEANING EQUIPMENT OPERATOR: AWILDA Gonzalez ?? PREOPERATIVE DIAGNOSIS: Internal/external hemorrhoid. ?? POSTOPERATIVE DIAGNOSIS: Internal/external hemorrhoid and inflammatory polyp. ?? PROCEDURE: Right posterior and left lateral excisional hemorrhoidectomy. Sarah is calling as she has two skin tags that she describes as marble-like and painful. She has had them for 4-5 days and they have not worsened or improved. Reviewed with Dr. Zamora, she will continue to use sitz baths and apply warmth to them and will monitor for fever. If she has any changes she will call back and we will change her post op appointment. documented in this encounter Plan of Treatment Not on file documented as of this encounter Visit Diagnoses Not on filedocumented in this encounter Care Teams Flavoring Oil Filterer Relationship Specialty Start Date End Date Beatrice Dickens MD [address] [place], [place] [address] [address] [place] [address] PCP - General 12/06/13 documented as of this encounter
--- OUTSIDE RECORDS SUMMARY | 2024-04-04 18:54 | XMS_ITS | Encounter Summary ---
Author Organization [facility] Address [address] [place] [address] Care Team Providers Care Home Health Registered Nurse Name Role Phone Beatrice Dickens MD Primary Care Provider [phone] Reason for Visit * Reason Onset Date Comments Results 07/23/2019 Encounter Details Date Type Department Care Team ([facility] Contact Info) Description 07/23/2019 Telephone [facility] [address] [place] [id number] Yamileth Natarajan PA-C [address] [facility] [address] [place], [place] [id number] Results Social History Tobacco Use Types Packs/Day [...] encounter Miscellaneous Notes * Telephone Encounter - Yamileth Natarajan PA - 07/23/2019 1821 EST Pt was seen by Cori on 07/22, urine culture sent, pt treated with cipro given hx of resistance. Culture is growing e. Coli, but sensitivities have not yet returned. Would someone mind checking culture results tomorrow, 07/24 and send to in-house provider if not sensitive to cipro? Cori will be out of the office. Thank you. documented in this encounter Plan of Treatment Not on file documented as of this encounter Visit Diagnoses Not on filedocumented in this encounter Care Teams Home Health Registered Nurse Relationship Specialty Start Date End Date Beatrice Dickens MD [address] [place] [address] PCP - General 12/06/13 documented as of this encounter
--- OUTSIDE RECORDS SUMMARY | 2024-04-04 18:54 | XMS_ITS | Encounter Summary ---
Author Organization [facility] Address [address] [place] [address] Care Team Providers Care Project Management Advisor Name Role Phone Beatrice Dickens MD Primary Care Provider [phone] Encounter Details Date Type Department Care Team (Late st Contact Info) Description 06/27/2019 Results Only [facility] [phone] Corinne Goss MD [address] [place] [address] [address] [place], [place] [id number] Social History Tobacco Use Types Packs/Day Years [...] Procedure Name Priority Date/Time Associated Diagnosis Comments SURGICAL PATHOLOGY Routine 06/27/2019 15 :55 EDT documented in this encounter Results * SURGICAL PATHOLOGY (06/27/2019 15:55 EDT) Pathology Report: SURGICAL PATHOLOGY REPORT Reports generated via electronic interface contain original data; however they are lacking the format of the original report. Caution should be taken when reading/interpret ing unformatted reports. Name: ? SARAH CHAPMAN ? Accession #: ? [id number] ? : ? 1950 (Age: 68) ??F ? Collect Date: ? 06/27/2019 ? Location: ? [facility] ? Receive Date: ? 06/27/2019 ? Provider: CORINNE GOSS MD Copy to: BEATRICE DICKENS MD ? Final Pathologic Diagnosis: COLON, TRANSVERSE, POLYP, BIOPSY: - Colonic mucosa with prominent reactive lymphoid aggregate. - Negative for dysplasia and malignancy. Document reviewed and electronically signed by: JINA PARSON MD Report ??Date: 06/28/2019 14:03 By the signature above, the attending physician certifies that he/she has personally conducted a gross and/or microscopic examination of the described specimens and rendered or confirmed the above diagnosis. Specimen(s) Received: Transverse colon polyp Clinical History: Colon cancer screening; family hx of colon cancer; personal hx of polyps Gross Description: ? Received in formalin labelled with proper patient identification (initials K, M) and transverse colon polyp is a pale roth tissue, 0.3 x 0.2 x 0.1 cm. Entirely submitted in 1. ALEJANDRA Sánchez (ASCP) 06/27/2019 4:48 PM End of Report [facility] 06/27/2019 15:5 5 EDT 06/27/2019 15:55 EDT Corinne Goss MD PATHOLOGY ORDERA CANDIE [facility] [address] [place] [address] documented in this encounter Visit Diagnoses Not on filedocumented in this encounter Care Teams Project Management Advisor Relationship Specialty Start Date End Date Beatrice Dickens MD [address] [place] [address] PCP - General 12/06/13 documented as of this encounter
--- OUTSIDE RECORDS SUMMARY | 2024-04-04 18:54 | XMS_ITS | Referral Summary ---
Author Organization [facility] Address [address] [place] [address] Care Team Providers Care Candy Spreader Helper Name Role Phone Beatrice Dickens MD Primary Care Provider [phone] Allergies Active Allergy Reactions Criticality Noted Date Comments Gabapentin Other (See Comments) Low 12/02/2013 [place] Escitalopram Rash 07/22/2019 Sulfa (Sulfonamide Antibiotics) Hives 12/02/2013 Medications Medication Sig Dispensed Refills Start Date End Date Status cetirizine (ZYRTEC) 10 mg tablet Take 10 mg by mouth daily. Active Cholecalciferol, Vitamin D3, 2,000 unit capsule Take 10,000 mg by mouth. Active ibuprofen (MOTRIN) 200 mg tablet Take 200 mg by mouth as needed for Pain. Reported on 01/06/2017 Active Triamcinolone Acetonide (KENALOG) 0.025 % Lotion by topical (top) route 2 times daily. Reported on 01/06/2017 Active propranolol (INDERAL) 40 mg tablet Take 10 mg by mouth as needed. Active ascorbic acid, vitamin C, (VITAMIN C) 500 mg tablet Take 500 mg by mouth daily. Active tocopheryl acetate (VITAMIN E) 100 unit capsule Take 400 Units by mouth daily. Active cyanocobalamin (VITAMIN B-12) 500 mcg tablet Take 500 mcg by mouth daily. Active wnzhae-ktjxxcyh-zowq ase (ZENPEP) 10,000-34,000 -55,000 unit per capsule Take 1 Cap by mouth daily. Active folic acid (FOLVITE) 1 mg tablet Take 400 mcg by mouth daily. Active Chromium 200 mcg tablet Take by mouth daily. Acti ve Llced-6-BVI-EPA-Fish Oil (FISH OIL) 1,000 mg (120 mg-180 mg) capsule Take by mouth. Active Magnesium Glycinate 100 mg tablet Take 300 mg by mouth. Active methylphenidate (RITALIN;METHYLIN) 10 mg tablet Take 10 mg by mouth 3 times daily. Active vitamin A 10,000 unit capsule Take 5,000 Units by mouth three times a week. Active acetaminophen (TYLENOL) 500 mg tablet Take 0.5-1.5 Tabs by mouth every 4 hours as needed for Pain. 07/09/2017 Active naloxone (NARCAN) 4 mg/actuation nasal spray 1 [place] by nasal route as needed for Opioid Reversal. 2 Each 07/09/2017 Active Additional Information Patient not taking.Reported on 07/22/2019 docusate sodium (COLACE) 100 mg capsule Take 1 Cap by mouth 2 times daily as needed for Constipation. 07/09/2017 Active Active Problems Problem Noted Date Diagnosed Date External hemorrhoid 07/08/2017 Abdominal pain 12/02/2013 Overview: ICD10 Update Auto Replacement Atrophic vaginitis 12/02/2013 Depressive disorder 12/02/2013 Overview: Dr. Oliverio Fritz in psychopharmacology Chronic fatigue syndrome 12/02/2013 Overview: With fibromyalgia diagnosed by Dr. Olivo in 2002 Disorder of vitamin B12 12/02/2013 Cervical spondylosis 12/02/2013 Lumbago 12/02/2013 Adenomatous polyp of colon 12/02/2013 Overview: Tubular adenoma Vertigo 12/02/2013 Overview: ? Of benign positional vertigo Social History Tobacco Use Types Packs/Day Years [...] on file Sexual Orientation Not on file Last Filed Vital Signs Vital Sign Reading Time Taken Comments Blood Pressure 120/72 04/19/2021 1130 EDT Pulse 76 04/19/2021 1130 EDT Temperature 37.2 ??C (98.9 ??F) 04/19/2021 1130 EDT Respiratory Rate 18 04/19/2021 1130 EDT Oxygen Saturation 98% 04/19/2021 1130 EDT Inhaled Oxygen Concentration - - Weight 71.7 kg (158 lb) 08/12/2017 1345 EST Height 162.6 cm (5' 4.02) 08/12/2017 1345 EST Body Mass Index 27.11 08/12/2017 1345 EST Functional Status Functional Status Response Date of [...] concentrating, remembering, or making decisions? No 08/12/2017 Plan of Treatment Not on file Procedures Procedure Name Priority Date/Time Associated Diagnosis Comments COLONOSCOPY PROCEDURE Routine 04/05/2014 from Last 3 Months or Most Recently Relevant to Health Maintenance Results * COLONOSCOPY (04/05/2014) Colonoscopy [facility] Comment:Repeat colo in 5-10 years Colonoscopy, External [facility] Anatomical Region Laterality Modality Endoscopy 04/05/2014 Historical Provider GI PROCEDURE TOYIN HORAN from Last 3 Months or Most Recently Relevant to Health Maintenance [phone] (Work) [address] [place] [id number] Rose Personal/Family Self [phone] (Work) [address] [place] [id number] Rose Personal/Family Self [phone] (Work) [address] [place] [id number] Rose Personal/Family Self [phone] (Work) [address] [place] [address] Sarah Wiggins Personal/Family Self [phone] (Work) [address] [place] [id number] Jurado Personal/Family Self [phone] (Work) [address] [place] [address] Sarah Wiggins Personal/Family Self [phone] (Work) [address] [place] [address]Sarah Rose Personal/Family Self [phone] (Work) [address] [place] [address] Advance Directives For more information, please contact: [phone] * Full Code (Latest Code Status on File) Date Activated Date Inactivated Comments 07/08/2017 11:15 07/09/2017 11:30 Question Answer Comments Reason for decision includes: Full code consistent with overall plan of care Who participated in the discussion? Patient Care Teams Candy Spreader Helper Relationship Specialty Start Date End Date Beatrice Dickens MD [address] [place] [address] PCP - General 12/06/13
--- OUTSIDE RECORDS SUMMARY | 2024-04-04 18:54 | XMS_ITS | Encounter Summary ---
Author Organization [facility] Address [address] [place] [address] Care Team Providers Care Production Broacher Name Role Phone Beatrice Dickens MD Primary Care Provider [phone] Reason for Visit * Reason Comments Urinary Tract Infection Encounter Details Date Type Department Care Team ([facility] st Contact Info) Description 04/19/2021 11:30 EDT Walk-[facility] [address] [place], [place] [phone] Magdalene Sal, ANKIT [address] [place] [address] Acute cystitis with hematuria (Primary Dx) Social History Tobacco Use Types [...] EDT Inhaled Oxygen Concentration - - Weight - [...] this encounter Patient Instructions * Patient Instructions* Magdalene Sal PA-C - 04/19/2021 11:30 EDT Take keflex as directed. Increase fluids. Follow-up with your PCP. Seek immediate treatment in the ED for fever or worsening symptoms. documented in this encounter Ordered Prescriptions Prescription Sig Dispensed Refills Start Date End Da te cephalexin (KEFLEX) 500 mg capsuleIndications:Acute cystitis with hematuria Take 1 capsule by mouth 2 times daily for 7 days. 14 capsule 04/19/2021 04/26/2021 documented in this encounter Progress Notes * Nikki Hall - 04/19/2021 1130 EDT CC/HPI: Patient reports burning with urination, frequency and voiding small amounts since this morning. She has a history of UTIs Covid Screening: In the last 72 hours, has the patient had: New or unusual cough, shortness of breath, new nasal congestion, sore throat, fever, chills, body aches, or new loss of taste or smell without a reasonable alternative diagnosis*? (If yes, assign patient to ARC schedule) NO In the past 14 days, has the patient had a confirmed close Covid exposure (<6ft for > 15mins in 24hr period)? NO In the past 14 days, has the patient returned from international travel? NO Is the patient fully Covid vaccinated? (If close exposure or international travel but fully vaccinated, remains NRC. If close exposure or international travel and unvaccinated, assign to ARC) Yes, fully *may be determined by RN or in discussion with available provider ([facility]POINT ADMIN's and CCA's can defer to Charge Nurse to complete triage when appropriate) PCP: Beatrice Dickens * Magdalene Sal PA-C - 04/19/2021 1130 EDT [facility] Express Care Chief Complaint(s): Urinary Tract Infection HPI: This is a 70-year-old female who presents to express care reporting urinary frequency, urgency, dysuria since 3 AM this morning. Mild nausea without vomiting. Appetite is good. No fever or chills. [place] pain. She has had UTIs in the past. I have reviewed current problem list, current medications and allergies ROS: See HPI Review of Systems Constitutional: Negative for chills and fever. Objective: Examination: Vitals: BP 120/72 Pulse 76 Temp 37.2 ??C (98.9 ??F) (Oral) Resp 18 SpO2 98% Physical Exam Vitals and nursing note reviewed. Constitutional: General: She is not in acute distress. Appearance: She is not ill-appearing or toxic-appearing. HENT: Head: Normocephalic and atraumatic. Pulmonary: Effort: Pulmonary effort is normal. Abdominal: General: Abdomen is flat. Bowel sounds are normal. There is no distension. Palpations: Abdomen is soft. Tenderness: There is no abdominal tenderness. There is no right CVA tenderness, left CVA tenderness, guarding or rebound. Skin: General: Skin is warm and dry. Neurological: Mental Status: She is alert and oriented to person, place, and time. Procedures Assessment & Plan: 1. Acute cystitis with hematuria 70-year-old afebrile female with acute cystitis. Urine dip reveals small leuks and large blood, culture is ordered. Will treat with a course of Keflex at the request of the patient, pending the culture results. Follow-up precautions discussed. - POCT URINE DIPSTICK, VISUAL READ - BACTERIAL CULTURE, URINE - cephalexin (KEFLEX) 500 mg capsule; Take 1 capsule by mouth 2 times daily for 7 days. Dispense: 14 capsule; Refill: 0 See patient instructions. Questions and concerns were answered. Patient expressed understanding of plan. documented in this encounter Plan of Treatment Not on file documented as of this encounter Procedures Procedure Name Priority Date/Time Associated Diagnosis Comments BACTERIAL CULTURE, URINE Routine 04/19/2021 11:53 EDT Acute cystitis with hematuria POCT URINE DIPSTICK, VISUAL READ Routine 04/19/2021 Acute cystitis with hematuria documented in this encounter Results * BACTERIAL CULTURE, URINE (04/19/2021 11:53 EDT) ESCHERIACHIA COLI - [facility] ESCHERICHIA COLI 04/21/2021 8:33 EDT [facility] COLONY COUNT >100,000 CFU/ML 04/21/2021 8:33 [facility] GROUP B STREPTOCOCCUS - [facility] SXB 04/21/2021 8:33 [facility] COLONY COUNT 10,000-100,000 CFU/ML 04/21/20 8:33 [facility] USUAL UROGENITAL DONI - [facility] UUV 04/21/2021 8:33 [facility] COLONY COUNT <10,000 CFU/ML 04/21/2021 8:33 [facility] Urine URINE SPECIMEN COLLECTION, CLEAN CATCH / Unknown 04/19/2021 11:53 EDT 04/19/2021 13:03 EDT Comment:VOID Narrative Organism Antibiotic Method Susceptibility Escherichia coli Ampicillin Sulbactam GRAM NEGAT COURT SUSCEPTIBILITY - [facility] >=32: Resistant Escherichia coli Ampicillin GRAM NEGATIVE SUSCEPTIBILITY - [facility] >=32: Resistant Escherichia coli Amoxicillin Clavulan ic acid GRAM NEGATIVE SUSCEPTIBILITY - [facility] 8: Susceptible Escherichia coli Ceftriaxone ([facility] Conversion) GRAM NEGATIVE SUSCEPTIBILITY - [facility] <=1: Susceptible Escherichia coli Cefazolin GRAM NEGATIVE SUSCEPTIBILITY - [facility] <=4: Susceptible Escherichia coli Ciprofloxacin GRAM NEGATIVE SUSCEPTIBILITY - [facility] <=0.25: Susceptible Escherichia coli Cefepime GRAM NEGATIVE SUSCEPTIBILITY - [facility] <=1: Susceptible Escherichia coli Ertapenem GRAM NEGATIVE SUSCEPTIBILITY - [facility] <=0.5: Susceptible Escherichia coli Nitrofurantoin GRAM NEGATIVE SUSCEPTIBILITY - [facility] <=16: Susceptible Escherichia coli Gentamicin GRAM NEGATIVE SUSCEPTIBILITY - [facility] <=1: Susceptible Escherichia coli Levofloxacin GRAM NEGATIVE SUSCEPTIBILITY - [facility] <=0.12: Susceptible Escherichia coli Piperacillin Tazobactam GRAM NEGATIVE SUSCEPTIBILITY - [facility] <=4: Susceptible Escherichia coli Trimethoprim-Sulfame th oxazole GRAM NEGATIVE SUSCEPTIBILITY - [facility] >=320: Resistant Escherichia coli Tobramycin GRAM NEGATIVE SUSCEPTIBILITY - [facility] <=1: Susceptible Comment:UTI, , Cindy ESPINOZA MECHANICAL SHOVEL OPERATOR Magdalene Sal PA-C MICROBIOLOGY - GENERAL ORDERABLES [facility] [address] [place] [address] * POCT URINE DIPSTICK, VISUAL READ (04/19/2021) Color, UA Yellow [facility] POIN T OF CARE Clarity, UA Clear [facility] PO INT OF CARE Glucose, UA Negative . mg/dL [facility] PO INT OF CARE Bilirubin, UA Negative . [facility] POINT [facility]ARE Ketones, UA Negative . mg/dL [facility] PO INT OF CARE Spec Grav, UA 1.015 . [facility] POINT [facility] CARE Blood, UA Large . [facility] POIN T [facility] pH, UA 5.5 4.6 - 8.0 [facility] POIN T OF CARE Protein, UA Negative . mg/dL [facility] PO INT OF CARE Urobilinogen, UA 0.2 0.2 - 1.0 E.U./dL [facility] POINT [facility] CARE Nitrite, UA Negative . [facility] PO INT OF CARE Leuk Esterase Small . [facility] POINT [facility] CARE Comment [facility] POIN T [facility] CARE Urine URINE SPECIMEN COLLECTION, CLEAN CATCH / Unknown 04/19/2021 Magdalene Sal PA-C POINT OF CAR E TEST ORDERABLES [facility] POINT [facility] CARE documented in this encounter Visit Diagnoses Diagnosis Acute cystitis with hematuria- Primary Acute cystitis documented in this encounter Discontinued Medications Medication Sig Discontinue Reason Start Date End Da te ibuprofen (ADVIL;MOTRIN) 100 mg/5 mL suspension ibuprofen 200mg 3tabs PRN Duplicate Therapy 04/19/2021 documented as of this encounter Historical Medications * This list may reflect changes made after this encounter. Medication Sig Dispensed Refills Start Date End Date ibuprofen (ADVIL;MOTRIN) 100 mg/5 mL suspension ibuprofen 200mg 3tabs PRN 04/19/2021 added in this encounter Care Teams Production Broacher Relationship Specialty Start Date End Date Beatrice Dickens MD [address] [place] [id number] PCP - General 12/06/13 documented as of this encounter
--- OUTSIDE RECORDS SUMMARY | 2024-04-04 18:54 | XMS_ITS | Encounter Summary ---
Author Organization [facility] Address [address] [place] [address] Care Team Providers Care Manager Functional Name Role Phone Beatrice Dickens MD Primary Care Provider [phone] Encounter Details Date Type Department Care Team (Late st Contact Info) Description 03/08/2021 Results Only [facility] [phone] Cierra Cheatham, MANUEL [address] [place] [address] Social History Tobacco Use Types Packs/Day Years [...] Procedure Name Priority Date/Time Associated Diagnosis Comments COMPLETE BLOOD COUNT WITH DIFFERENTIAL (AUTO) Routine 03/08/2021 12:51 EDT TSH Routine 03/08/2021 12:51 EDT VITAMIN B12 Routine 03/08/2021 12:51 EDT documented in this encounter Results * TSH (03/08/2021 12:51 EDT) [facility] THYROID STIM HORMONE [facility] 0.82 0.46 - 4.68 uIU/ml 03/08/2021 14:33 EDT [facility] Comment: The results of this assay can be falsely lowered due to the consumption of Biotin. 03/08/2021 12:5 1 EDT 03/08/2021 12:51 EDT [facility] - 03/08/2021 14:33 EDT Does PT Have a Latex Allergy? NO Cierra Cheatham NP CHEMISTRY & BLOOD GA S ORDERABLES Performing Organization Address City/State/[facility] Co de Phone Number [facility] [address] [place] [address] * VITAMIN B12 (03/08/2021 12:51 EDT) [facility] VITAMIN B12 [facility] 379 239 - 931 pg/mL 03/08/2021 14:33 EDT [facility] Comment: The results of this assay can be falsely elevated due to the consumption of Biotin. 03/08/2021 12:5 1 EDT 03/08/2021 12:51 EDT [facility] - 03/08/2021 14:33 EDT Does PT Have a Latex Allergy? NO Cierra Cheatham NP CHEMISTRY & BLOOD GA S ORDERABLES [facility] [address] [place] [address] * (ABNORMAL) COMPLETE BLOOD COUNT WITH DIFFERENTIAL (AUTO) (03/08/2021 12:51 EDT) ABSOLUTE NEUTROPHIL COUN - [facility] 2.6 2.2 - 8.85 10e3/uL 03/08/2021 13:28 [facility] BASO # - [facility] 0.03 0.01 - 0.11 10e/uL 03/08/2021 13:28 [facility] BASO % - [facility] 1 0 - 2 % 03/08/2021 13:28 [facility] EOS # - [facility] 0.09 0.03 - 0.61 10e3/ul 03/08/2021 13:28 [facility] EOS % - [facility] 2 0 - 5 % 03/08/2021 13:28 [facility] GRAN % - [facility] 44.2 40 - 80 % 03/08/2021 13:28 [facility] HEMATOCRIT - [facility] 37.5 34.9 - 44.4 % 03/08/2021 13:28 [facility] HEMOGLOBIN - CV 12.4 11.6 - 15.2 g/dl 03/08/2021 13:28 [facility] IG# - [facility] 0.02 0 - 0.7 10e3/uL 03/08/2021 13:28 [facility] IG% - [facility] 0.3 0 - 0.9 % 03/08/2021 13:28 [facility] LYMPH # - [facility] 2.3 1.09 - 3.3 10e3/ul 03/08/2021 13:28 [facility] LYMPH% - [facility] 40.3(H) 20 - 40 % 03/08/2021 13:28 [facility] MEAN CORPUSCULAR HGB - [facility] 29.4 26.7 - 33.3 pg 03/08/2021 13:28 [facility] MEAN CORPUSCULAR HGB CONC - [facility] 33.1 32.1 - 35.9 g/dL 03/08/2021 13:28 [facility] MEAN CELL VOLUME - [facility] 88.9 81 - 98 fl 03/08/2021 13:28 [facility] MONO # - [facility] 0.8 0.1 - 0.8 10e3/uL 03/08/2021 13:28 [facility] MONO% - [facility] 13.1(H) 0 - 12 % 03/08/2021 13:28 [facility] PLATELET COUNT 212 141 - 377 10e3/ul 03/08/2021 13:28 [facility] RED BLOOD COUNT - [facility] 4.22 3.86 - 5.04 10e6/ul 03/08/2021 13:28 [facility] RED CELL DISTRI WIDTH - [facility] 12.8 <14.7 % 03/08/2021 13:28 [facility] WHITE BLOOD COUNT - [facility] 5.8 4.0 - 12.4 10e3/ul 03/08/2021 13:28 [facility] 03/08/2021 12:5 1 EDT 03/08/2021 12:51 EDT Narrative [facility] - 03/08/2021 13:28 EDT Does PT Have a Latex Allergy? NO Cierra Cheatham IMPRESSION PRINTER HEMATOLOGY & PF4 ORD ERABLES [facility] [address] [place] [id number] documented in this encounter Visit Diagnoses Not on filedocumented in this encounter Care Teams Manager Functional Relationship Specialty Start Date End Date Beatrice Dickens MD [address] [place] [phone] PCP - General 12/06/13 documented as of this encounter
--- OUTSIDE RECORDS SUMMARY | 2024-04-04 18:54 | XMS_ITS | Encounter Summary ---
Author Organization [facility] Address [address] [place] [address] Care Team Providers Care Playground Supervisor Name Role Phone Beatrice Dickens MD Primary Care Provider [phone] Encounter Details Date Type Department Care Team (Late st Contact Info) Description 02/17/2017 Results Only [facility] [phone] Beatrice Dickens MD [address] [place] [id number] Social History Tobacco Use Types Packs/Day Years [...] Procedure Name Priority Date/Time Associated Diagnosis Comments PAP TEST- RESULT ONLY Routine 02/17/2017 0:00 EDT documented in this encounter Results * PAP TEST- RESULT ONLY (02/17/2017 0:00 EDT) Pathology Report: CYTOPATHOLOGY REPORT Reports generated via electronic interface contain original data; however they are lacking the format of the original report. Caution should be taken when reading/interpreti ng unformatted reports. Name: ? LEIGH ANN CHAPMANDIBEV Watts ? Accession #: ? [id number] ? : ? 1950 (Age: 66) ??F ?Collect Date: ? 02/17/2017 ? Location: ? [facility] ? Receive Date: ? 02/18/2017 ? Provider: BEATRICE DICKENS MD Copy to: ? Final Report SPECIMEN ADEQUACY ? Satisfactory for Evaluation - assessment of transformation zone component not applicable ( e.g. atrophy, vaginal sample, hysterectomy) - scant squamous epithelial component secondary to excessive inflammation GENERAL CATEGORIZATION ? Negative for Intraepithelial Lesion or Malignancy ?? Menstrual/Pregnanc y Status: ??Post Menopausal Hormonal/Contracep tive status: None Other: Teacher Counselor Clinical/Treatment Hx - None Specimen/Source: ??Pap Test, Cervix/Endocervix, ThinPrep Imaging System with manual evaluation Document reviewed and electronically signed by: ? Kathya Keita [facility]) ? Report ??Date: 03/02/2017 10:29 HPV with Pap Test ? Date Ordered: ? 03/02/2017 ? Status: ?? Signed Out ?Date Complete: ? 03/03/2017 ? By: ??System Interface ? Date Reported: ? 03/03/2017 ? Interpretation RESULT: Negative for HPV. No E6 or E7 mRNA is detected from HPV types 16,18,31,33,35, 39,45,51,52,56,58, 59,66, and 68 by center director lead teacher mediated amplification. Comments Document reviewed and electronically signed by: ? System Interface ? Report date: 03/03/2017 By the signature above, the attending physician certifies that he/she has personally conducted a gross and/or microscopic examination of the described specimens and rendered or confirmed the above diagnosis. End of Report [facility] 02/17/2017 02/18/2017 Beatrice Dickens MD PATHOLOGY ORDERABLE S Performing Organization Address City/State/[facility] Co de Phone Number [facility] [address] [place] [address] documented in this encounter Visit Diagnoses Not on filedocumented in this encounter Care Teams Playground Supervisor Relationship Specialty Start Date End Date Beatrice Dickens MD [address] [place] [address] PCP - General 12/06/13 documented as of this encounter
--- OUTSIDE RECORDS SUMMARY | 2024-04-04 18:54 | XMS_ITS | Encounter Summary ---
Author Organization [facility] Address [address] [place] [address] Care Team Providers Care Seater Grinder Name Role Phone Beatrice Dickens MD Primary Care Provider [phone] Reason for Referral * (Routine) - Closed Specialty Diagnoses / Procedures Referred By Contac t Referred To Contact Myra Green NP [address] [address] Referral ID Status Reason Start Date Expiration Date V isits Requested Visits Authorized [id number] Closed Specialty Services Required 07/09/2017 1 1 Comments Please call our clinic at [phone] to schedule a follow up with Dr. Tish Azar MD in 3 weeks * (Routine) - Closed Specialty Diagnoses / Procedures Referred By Contac t Referred To Contact Myra Green NP [address] [address] Referral ID Status Reason Start Date Expiration Date V isits Requested Visits Authorized [id number] Closed Specialty Services Required 07/09/2017 1 1 Comments Chest pain (angina) Dizziness or fainting Decreased urine output Fever greater than 101 or chills Inability to swallow or increasing difficulty swallowing Increased or new pain Nausea or vomiting Pain unrelieved by medication Severe or increasing headache Shortness of breath or rapid breathing Skin rash Signs of infection such as pain, redness, swelling or drainage at procedure or wound site Swelling in your legs * (Routine) - Closed Specialty Diagnoses / Procedures Referred By Susan gan Referred To Contact Myra Green NP [address] [address] Referral ID Status Reason Start Date Expiration Date V isits Requested Visits Authorized [id number] Closed Specialty Services Required 07/09/2017 1 1 Comments We are currently collecting quality data on patients having surgery. You may receive a phone call, email, and/or letter about your surgery asking you a series of follow up questions to evaluate specifics aspects of your care. Thank you for your participation. Encounter Details Date Type Department Care Team (Late st Contact Info) Description 07/08/2017 6:31 EST - 07/09/2017 9:28 EST Hospital Encounter [facility] General Surgery Unit [address] [place] [address] Tish Azar MD [address] [phone] External hemorrhoid Discharge Disposition: Home or Self Care Social History Tobacco Use Types Packs/Day Years [...] Sign Reading Time Taken Comments Blood Pressure 110/62 07/09/2017 0525 EST Pulse 64 07/09/2017 0525 EST Temperature 36.3 ??C (97.3 ??F) 07/09/2017 0525 EST Respiratory Rate 16 07/09/2017 0525 EST Oxygen Saturation 96% 07/09/2017 0525 EST Inhaled Oxygen Concentration - - Weight 71.7 kg (158 lb) 07/06/2017 1407 EST Height 162.6 cm (5' 4) 07/06/2017 1407 EST Body Mass Index 27.12 07/06/2017 1407 EST documented in this encounter Functional Status [...] No 07/08/2017 documented as of this encounter Discharge Diagnoses Diagnosis K64.8 Other hemorrhoids-K64.8[ICD-10-CM] K64.4 Residual hemorrhoidal skin tags-K64.4[ICD-10-CM] K62.0 Anal polyp-K62.0[ICD-10-CM] G47.33 Obstructive sleep apnea (adult) (pediatric)-G47.33[ICD-10-CM] E78.00 Pure hypercholesterolemia, unspecified-E78.00[ICD-10-CM] Z79.899 Other fci (current) drug therapy-Z79.899[ICD-10-CM] documented in this encounter Discharge Instructions * Discharge Instructions* Tish Azar MD - 07/08/2017 8:45 EST For the next 2 days alternate/stagger tylenol 650mg and ibuprofen 600mg so you get one or the otherevery 3 hours. You don't have to wake up to take medicines. Take prescription medicines if pain is not tolerable with the tylenol and ibuprofen. After 2 days start using the tylenol and ibuprofen as needed. While you are taking the prescription pain medicines you should be sure to drink lots of water, don't take the pain meds on an empty stomach, and take colace 100mg by mouth twice a day (over the counter stool softener). If you have not had a BM for 2 days start taking Miralax 17gms by mouth every night (over the counter laxative) until your bowels are moving regularly. Prescription pain medications can be habit forming (addicting) and should be used with caution. Sitz baths and cool packs to the perineal area will help ease pain as well. Please call if fevers > 101.5, urinary retention or constipation [phone] * Additional Instructions* Myra Green NP - 07/09/2017 8:27 EST Discharge Instructions Please alternate Ibuprofen and Tylenol so you are getting a dose of one every 3 hours. Use Oxycodone on top of Tylenol and Ibuprofen for breakthrough pain Would recommend keeping ice to bottom for pain relief. Use a pharmacy bought sitz bath or your tub with warm water, without additives, and soak twice daily and as needed for cleanliness and pain. It is important that you do not become constipated or have to strain to have a bowel movement. Please use Colace and Miralax to achieve stools that are toothpaste consistency. You can find these medications over the counter. You may notice some blood in your underpants, when you wipe or in the toilet bowl. This is normal. You may place pad in your underpants. Please notify our clinic at [phone] immediately for fevers, chills, worsening pain or abdominal pain, inability to urinate or bleeding that doesn't stop. Please call our clinic at the above number to schedule a follow up appointment with Dr.Krista Azarin 2-3 weeks. documented in this encounter Medications at Time of Discharge Medication Sig Dispensed Refills Start Date End Date acetaminophen (TYLENOL) 500 mg tablet Take 0.5-1.5 Tabs by mouth every 4 hours as needed for Pain. 07/09/2017 ascorbic acid, vitamin C, (VITAMIN C) 500 mg tablet Take 500 mg by mouth daily. cetirizine (ZYRTEC) 10 mg tablet Take 10 mg by mouth daily. Cholecalciferol, Vitamin D3, 2,000 unit capsule Take 10,000 mg by mouth. Chromium 200 mcg tablet Take by mouth daily. cyanocobalamin (VITAMIN B-12) 500 mcg tablet Take 500 mcg by mouth daily. docusate sodium (COLACE) 100 mg capsule Take 1 Cap by mouth 2 times daily as needed for Constipation. 07/09/2017 folic acid (FOLVITE) 1 mg tablet Take 400 mcg by mouth daily. ibuprofen (MOTRIN) 200 mg tablet Take 200 mg by mouth as needed for Pain. Reported on 01/06/2017 oethlr-gyuzpkvt-xgjlocu (ZENPEP) 10,000-34,000 -55,000 unit per capsule Take 1 Cap by mouth daily. Magnesium Glycinate 100 mg tablet Take 300 mg by mouth. methylphenidate (RITALIN;METHYLIN) 10 mg tablet Take 10 mg by mouth 3 times daily. naloxone (NARCAN) 4 mg/actuation nasal spray 1 [place] by nasal route as needed for Opioid Reversal. 2 Each 07/09/2017 Fblwp-6-EJD-EPA-Fish Oil (FISH OIL) 1,000 mg (120 mg-180 mg) capsule Take by mouth. propranolol (INDERAL) 40 mg tablet Take 10 mg by mouth as needed. tocopheryl acetate (VITAMIN E) 100 unit capsule Take 400 Units by mouth daily. Triamcinolone Acetonide (KENALOG) 0.025 % Lotion by topical (top) route 2 times daily. Reported on 01/06/2017 vitamin A 10,000 unit capsule Take 5,000 Units by mouth three times a week. oxyCODONE (ROXICODONE) 5 mg immediate release tablet Take 1 Tab by mouth every 8 hours as needed for up to 5 days for Pain. Daily Max: 15 mg 15 Tab 07/09/2017 07/14/2017 documented as of this encounter Ordered Prescriptions Prescription Sig Dispensed Refills Start Date End Da te docusate sodium (COLACE) 100 mg capsule Take 1 Cap by mouth 2 times daily as needed for Constipation. 07/09/2017 naloxone (NARCAN) 4 mg/actuation nasal spray 1 [place] by nasal route as needed for Opioid Reversal. 2 Each 07/09/2017 acetaminophen (TYLENOL) 500 mg tablet Take 0.5-1.5 Tabs by mouth every 4 hours as needed for Pain. 07/09/2017 oxyCODONE (ROXICODONE) 5 mg immediate release tablet Take 1 Tab by mouth every 8 hours as needed for up to 5 days for Pain. Daily Max: 15 mg 15 Tab 07/09/2017 07/14/2017 documented in this encounter Discharge Disposition Disposition Code Departure Means Destination Home or Self Care documented in this encounter Progress Notes * Sallie Stockton - 07/09/2017 0928 EST Pt was discharged home to self care prior to home risk assessment. CM reviewed the patient's chart,face sheet and nursing documentation (and has discussed the patient's situation with the medical team). No CM dc needs were identified. Ellen Stockton RN CM [id number] * Sandra Saldivar RN - 07/08/2017 1842 EST Data: Assumed care of pt around 11:30 am. Pt was a transfer from [facility] for observations s/p external hemorrhoid removal due central apnea. Pt has a c-pap machine in the room. Pt has pippa pad inplace. Pt is AOx3, independent OOB to the bathroom. Pt is voiding. Pt has been walking around the unit. Pt ordered dinner. Action: Medications per order, see MAR. Pt was on 3L of O2. Pt Sp02 was 96% and O2 was discontinued. Oriented pt to the unit. Response: Pt has been resting and visiting with family. Pt completed 100% of dinner and reports no nausea at this time. SANDRA SALDIVAR RN 07/08/2017 18:43 * Renato Rueda MD - 07/08/2017 1807 EST Blue Surgery Post-op Note POD 0 s/p hemorrhoidectomy S: Pt denies any pain. Has ambulated and voided post-op. No other complaints. O: Gen NAD CV RRR Pulm non-labored, CTAB Vitals: 07/08/17 1110 07/08/17 1111 07/08/17 1347 07/08/17 1728 BP: 113/56 114/61 108/64 BP Cuff Location: Right arm Right arm Right arm Patient Position: Semi fowlers Semi fowlers Semi fowlers Pulse: 72 Resp: Temp: 35.9 ??C (96.6 ??F) 36.2 ??C (97.2 ??F) 36.7 ??C (98.1 ??F) TempSrc: Tympanic Tympanic Tympanic SpO2: 98% 98% 96% 96% Weight: Height: A/P: 66y F with PMH of central sleep apnea who is POD 0 s/p hemorrhoidectomy and is admitted for observation given her central sleep apnea. Progressing well post-op. - analgesia as ordered - regular diet - continuous pulse ox - plan for likely d/c to home tomorrow Renato Rueda MD 07/08/17 18:15 * Denice Greenfield RN - 07/06/2017 1428 EST Timoteo S [place] has been instructed as follows regarding medication administration for the day of the scheduled procedure. Date of Surgery: 07/13/17 Instructions for Taking Medications Day of Surgery Medication Sig Last Dose Hold DOS Take DOS ascorbic acid, vitamin C, (VITAMIN C) 500 mg tablet Take 500 mg by mouth daily. x cetirizine (ZYRTEC) 10 mg tablet Take 10 mg by mouth daily. Yes Cholecalciferol, Vitamin D3, 2,000 unit capsule Take 10,000 mg by mouth. x Chromium 200 mcg tablet Take by mouth daily. x cyanocobalamin (VITAMIN B-12) 500 mcg tablet Take 500 mcg by mouth daily. x folic acid (FOLVITE) 1 mg tablet Take 400 mcg by mouth daily. x HYDROcodone-acetaminophen (NORCO) 5-325 mg tablet Take 1-2 Tabs by mouth every 4 hours as needed for Pain. Patient not taking: Reported on 01/06/2017 ibuprofen (MOTRIN) 200 mg tablet Take 600 mg by mouth as needed for Pain. Reported on 01/06/2017 x vlirsz-camvglxg-jaaddkz (ZENPEP) 10,000-34,000 -55,000 unit per capsule Take 1 Cap by mouth daily. x Magnesium Glycinate 100 mg tablet Take 300 mg by mouth. x methylphenidate (RITALIN;METHYLIN) 10 mg tablet Take 10 mg by mouth 3 times daily. prn Pbugg-0-GXO-EPA-Fish Oil (FISH OIL) 1,000 mg (120 mg-180 mg) capsule Take by mouth. x polyethylene glycol (GOLYTELY) 236-22.74-6.74 gram suspension TAKE DIRECTED.. Patient not taking: Reported on 01/06/2017 propranolol (INDERAL) 40 mg tablet Take 10 mg by mouth as needed. Yes tocopheryl acetate (VITAMIN E) 100 unit capsule Take 400 Units by mouth daily. x Triamcinolone Acetonide (KENALOG) 0.025 % Lotion by topical (top) route 2 times daily. Reported on 01/06/2017 x vitamin A 5000 unit capsule Take by mouth three times a week x documented in this encounter H&P Notes * Tish Azar MD - 07/08/2017 0818 EST Colorectal Surgery Chief Complaint: Internal external hemorrhoid HPI: Patient with RA internal external hemorrhoid causing bleeding and discomfort. Not amenable to banding. Review of Symptoms: Gen: no fevers, chills, sweats, no recent weight loss HEENT: no migraines, no changes in vision, no hearing loss CV: no CP or palpitations, able to climb a flight of stairs w/o difficulty Pulm: no SOB, no hx of asthma or inhaler use GI: no hx of constipation or diarrhea : no dysuria, urinary frequency or difficulty maintaining stream Musculoskeletal: no arthralgias or myalgias Neuro: no seizures, no numbness or tingling in the extremities Endocrine: no thyroid problems, no diabetes Psych: no anxiety or depression Heme: no hx of bleeding or bruising easily Skin: no hx of rashes, eczema, or psoriasis Mobility: ambulates w/o difficulty no cane / walker/ or wheelchair PMH PSH Past Medical History: Diagnosis Date ??? Chest pain neg ETT ??? Chronic sinusitis ??? Colon polyp ??? Hyperlipidemia resolved with diet ??? Mental disorder anxiety Past Surgical History: Procedure Laterality Date ??? SECTION x3 ??? OTHER SURGICAL HISTORY fistula repair Social History Family history Social History Substance Use Topics ??? Smoking status: Never Smoker ??? Smokeless tobacco: Never Used ??? Alcohol use Yes Comment: rare Family History Problem Relation Age of Onset ??? Heart Disease Mother ??? Cancer Mother anal/lung cancer ??? High Blood Pressure Mother ??? High Cholesterol Brother ??? Heart Disease Maternal Grandfather ??? Heart Disease Paternal Grandfather Current Facility-Administered Medications: lactated ringers (LR) infusion intravenous CONTINUOUS Allergies Allergies Allergen Reactions ??? Sulfa (Sulfonamide Antibiotics) Hives ??? Gabapentin Other (See Comments) [place] Objective: Blood pressure 130/70, temperature 36.5 ??C (97.7 ??F), temperature source Tympanic, resp. rate 16,height 162.6 cm (64), weight 71.7 kg (158 lb), SpO2 98 %. Physical Exam: Gen: awake, alert, and oriented x 3, NAD Neck: soft, no thyromegaly, no carotid bruits, no cervical lymphadenopathy CV: RRR no M/R/G Pulm: CTA bilat, no wheezes or rhonchi Abd: soft, nontender, nondistended, +bowel sounds Ext: warm, well perfused,no edema Data Review: Assessment: Timoteo Wiggins is a(n) 66 y.o. old female With internal external hemorrhoid. Plan: Plan for excisional hemorrhoidectomy--discussed in our preoperative visit and again today since I haven't seen her since 12/2016. Please see discussion in initial visit note. Patient does have central sleep apnea. She does have her PAP machine here with her. Plan was made for observation in the hospital for 23 hours to ensure respiratory status while on narcotics. Patientplacement has been notified. Tish Azar MD 07/08/2017 8:18 documented in this encounter OR Notes * OR Surgeon - Tish Azar MD - 07/08/2017 0000 EST OPERATIVE REPORT SERVICE DATE: 07/08/2017 SURGEON: Tish Azar MD PHARMACOLOGY PROFESSOR: Ilia Sethi MS4 PREOPERATIVE DIAGNOSIS: Internal/external hemorrhoid. POSTOPERATIVE DIAGNOSIS: Internal/external hemorrhoid and inflammatory polyp. PROCEDURE: Right posterior and left lateral excisional hemorrhoidectomy. ANESTHESIA: MAC. INTAKE: 500 of crystalloid. OUTPUT: 20 mL of estimated blood loss, no urine output. SPECIMENS: Right posterior hemorrhoid with polyp. NARRATIVE: The patient was identified in the preoperative holding area. She was brought back to theoperating room where a pre and post-induction time-out was performed. She was placed in lithotomy with all pressure points offloaded and she was prepped and draped in the usual sterile fashion. We began by doing an anal block with 0.5% Marcaine with epinephrine. We then, with the rosa Comer, inspected the anal canal after doing an anal exam. We noted an internal/external hemorrhoid withan polyp component in the right posterior region. There also appeared to be a larger internal hemorrhoid body in the left lateral postion right next to this polyp. Starting with the right posterior he morrhoid with polyp, we grasped it with a hemostat and injected 0.5% Marcaine with epinephrine underneath it. We then did a masoud-like incision to excise from the skin and mucosa towards the apex of the hemorrhoid body. The internal sphincter muscle was identified and dissected down to keep it intact With 3-0 Vicryl, we ligated the hemorrhoidal vessels. The hemorrhoid/polyp was excised with Metzenbaums. We then performed a locking stitch to close this and leaving the skin region open. In the left lateral aspect, we grasped the hemorrhoid with hemostats and 0.5% Marcaine with epinephrine injected underneath. We again excised it in a pyramid-like fashion, identifying the internal sphincter muscle and dissecting this off of the hemorrhoid and keeping this in place. We brought our incision toward the apex of the hemorrhoidal vessel and using a 3-0 Vicryl, did a owayyp-fv-bzxfi suture to ligate the hemorrhoidal vessel. Using Metzenbaums, we excised this hemorrhoid. Using a locking stitch, we closed the mucosa, leaving the skin open and tied it down. We then ensured that there was good hemostasis and cleaned off her bottom. Counts were correct x2. Unless otherwise noted, there were no complications, no blood loss, no cultures obtained, no specimens removed, and no drains retained. Tish Azar MD 09 27 AM / Tish Azar MD mn Confirmation: [id number] Dictation ID: [id number] documented in this encounter Miscellaneous Notes * Plan of Care - Joey Wren RN - 07/09/2017 09 EST Problem: Daily Care Plan Goals Goal: Care Plan Documentation Outcome: Met This Shift Data: Received orders for discharge. Action: Removed PIV. Reviewed AVS. Response: Patient signed AVS. Discharged ambulatory with daughter. Joey Wren RN 07/09/2017 9:24 * Plan of Care - Patsy Rehman RN - 07/09/2017 0341 EST Problem: Daily Care Plan Goals Goal: Care Plan Documentation Outcome: Ongoing 07/08/172023 Care Plan Focus Area of Focus Pain/ Comfort Goal This Shift adequate pain control Data: Pt rating pain 2-3/10. No oxygen on overnight. Independent to bathroom to void. Action: PRN oxycodone administered, see MAR. Scheduled tylenol and toradol administered, see MAR. CPAP on, masimo on, call dukes within reach, care clustered, and q1h checks. Response: VSS. Sleeping between care Will continue to monitor. Patsy Rehman RN 07/09/2017 3:40 * Anesthesia Post-Eval - Fabiola Kramer MD - 07/08/2017 0958 EST Anesthesia Post op Note Timoteo Wiggins PF106/01 Anesthesia received: MAC; Vital Signs: Temp: 35.7 ??C (96.3 ??F), Heart Rate: 63 BPM, BP: 116/75, Resp: 13, SpO2: 98 % Vital signs Stable: Yes Consciousness: Recovered to baseline Patient's participation in evaluation:Able to participate Temperature Status: Normothermic Respiratory Status: Airway patent Supplemental O2: Nasal cannula Oxygen Saturation: Within patient's normal range Cardiovascular Status: Within patient's normal range Post-op Hydration: Adequate Nausea / Vomiting: None Pain Control: Adequate Current Pain Score: Numeric Pain Level (Scale 1-10): 0 Post-op Assessment: Tolerated procedure well Disposition: (inpatient transfer for obs) Complications: No apparent anesthetic complications Fabiola Kramer MD 07/08/2017 9:58 documented in this encounter Plan of Treatment Scheduled Referrals Name Type Priority Associated Diagnoses Order Schedule PROVIDER FOLLOW-UP INSTRUCTIONS Outpatient Referral Routine Ordered: 07/09/2017 PROVIDER FOLLOW-UP INSTRUCTIONS Outpatient Referral Routine Ordered: 07/09/2017 PROVIDER FOLLOW-UP INSTRUCTIONS Outpatient Referral Routine Ordered: 07/09/2017 documented as of this encounter Procedures Procedure Name Priority Date/Time Associated Diagnosis Comments ECG REPORT - SCANNED 07/13/2017 14:12 EST SURGICAL PATHOLOGY Routine 07/08/2017 12 :33 EST ECG REPORT - SCANNED 07/06/2017 16:14 EST documented in this encounter Results * ECG REPORT - SCANNED (07/13/2017 14:12 EST) 07/13/2017 14:1 2 EST Scan 2 Dairy Husbandry Teacher PROCEDURE/MINOR CLAUDE GICAL ORDERABLES * SURGICAL PATHOLOGY (07/08/2017 12:33 EST) Pathology Report: SURGICAL PATHOLOGY REPORT Reports generated via electronic interface contain original data; however they are lacking the format of the original report. Caution should be taken when reading/interpret ing unformatted reports. Name: ? HAMLETARACELISTIMOTEO S ? Accession #: ? [id number] ? : ? 1950 (Age: 66) ??F ? Collect Date: ? 07/08/2017 ? Location: ? B006 ? Receive Date: ? 07/08/2017 ? Provider: TISH AZAR MD Copy to: BEATRICE DICKENS MD ? Final Pathologic Diagnosis: RIGHT POSTERIOR INFLAMMATORY POLYP, POLYPECTOMY: - ??Inflammatory cloacogenic polyp (mucosal prolapse) with surface erosion. - ??Negative for dysplasia. Document reviewed and electronically signed by: CANDY MACIEL MD Report ??Date: 07/13/2017 09:19 By the signature above, the attending physician certifies that he/she has personally conducted a gross and/or microscopic examination of the described specimens and rendered or confirmed the above diagnosis. Specimen(s) Received: Right posterior inflammatory polyp Clinical History: Hemorrhoids Gross Description: ? Received in formalin labelled with proper patient identification (initials K, M) and right posterior inflammatory polyp is an irregular piece of roth-pink soft tissue (4.4 x 1.2 x 1.1 cm) with a polypoid structure (1.2 x 1.1 x 0.7 cm). Sectioning of the polypoid structure reveals a homogenous surface. The entire specimen is submitted sequentially along the longitudinal axis as 1-5. Morelia Schultz 07/09/2017 1:[address] [facility] 07/08/2017 12:3 3 EST 07/08/2017 12:33 EST Tish Azar MD PATHOLOGY ORDERABLES [facility] [address] [place] [address] * ECG REPORT - SCANNED (07/06/2017 16:14 EST) 07/06/2017 16:1 4 EST Scan 2 Dairy Husbandry Teacher PROCEDURE/MINOR CLAUDE GICAL ORDERABLES documented in this encounter Visit Diagnoses Diagnosis External hemorrhoid- Primary External hemorrhoids without mention of complication External hemorrhoid External hemorrhoids without mention of complication documented in this encounter Administered Medications Inactive Administered Medications - up to 3 most recent administrations Medication Order MAR Action Action Date Dose Rate Site acetaminophen (TYLENOL) tablet 1,000 mg 1,000 mg, oral, PRE-OP ONCE, 1 dose, On Thu07/08/17 at 0745, Routine, Pre-Op DOS Rx Approved Given 07/08/2017 7:29 EST 1,000 mg acetaminophen (TYLENOL) tablet 1,000 mg 1,000 mg, oral, EVERY 6 HOURS, First dose on Thu07/08/17 at 1200, Until Discontinued, Routine, On Unit Given 07/09/2017 6:00 EST 1,000 mg Given 07/08/2017 23:09 EST 1,000 mg Given 07/08/2017 18:19 EST 1,000 mg atropine 0.1 mg/mL syringe 0.5 mg 0.5 mg, intravenous, PRN, Starting on Thu07/08/17 at 0939, Until Larissa 07/09/17 at 1130, Symptomatic HR < 50, Routine, Recovery (only) dextrose 5 % and 0.45 % NaCl with KCl 20 mEq/L infusion 50 mL/hr, intravenous, CONTINUOUS, Starting on Thu07/08/17 at 1145, Until Larissa 07/09/17 at 1130, Routine, On Unit Rate Documented 07/08/2017 20:25 EST 50 mL/hr 50 mL/hr Rate Documented 07/08/2017 18:43 EST 50 mL/hr 50 mL/hr New Bag 07/08/2017 12:15 EST 50 mL/hr 50 mL/hr diphenhydrAMINE (BENADRYL) injection 12.5 mg 12.5 mg, intravenous, PRN, 1 dose, Starting on Thu07/08/17 at 0939, Until Larissa 07/09/17 at 1130, nausea, Routine, Recovery (only) enoxaparin (LOVENOX) injection 40 mg 40 mg, subcutaneous, DAILY, First dose on Thu07/08/17 at 1145, Until Discontinued, Routine, On Unit Given 07/08/2017 12:38 EST 40 mg fentaNYL citrate (PF) 50 mcg/mL injection 25-50 mcg 25-50 mcg, intravenous, EVERY 5 MIN PRN, Starting on Thu07/08/17 at 0939, Until Larissa 07/09/17 at 1130, Pain, Routine, Recovery (only) ibuprofen (MOTRIN) tablet 600 mg 600 mg, oral, PRE-OP ONCE, 1 dose, On Thu07/08/17 at 0745, Routine, Pre-Op DOS Rx Approved Given 07/08/2017 7:30 EST 600 mg ketOROLAC (TORADOL) injection 15 mg 15 mg, intravenous, EVERY 6 HOURS, 8 doses, First dose on Thu07/08/17 at 1145, Last dose on Thu07/10/17 at 0545, Routine, On Unit Given 07/09/2017 6:00 EST 15 mg Given 07/08/2017 23:09 EST 15 mg Given 07/08/2017 18:19 EST 15 mg lactated ringers (LR) infusion 25 mL/hr, intravenous, CONTINUOUS, Starting on Thu07/08/17 at 0745, Until Larissa 07/09/17 at 1130, Routine, Pre-Op DOS Rx Approved New Bag 07/08/2017 7:29 EST 25 mL/hr 25 mL/hr lactated ringers (LR) infusion at 75 mL/hr, intravenous, CONTINUOUS, Starting on Thu07/08/17 at 1000, Until Larissa 07/09/17 at 1130, Routine, Recovery (only) Rate Change 07/08/2017 9:48 EST 75 mL/hr morphine injection 1-2 mg 1-2 mg, intravenous, EVERY 3 HOURS PRN, Starting on Thu07/08/17 at 1115, Until Larissa 07/09/17 at 1130, Pain, pain still greater than 4/10 after oral medication, Routine, On Unit naloxone (NARCAN) injection 0.2 mg 0.2 mg, intravenous, PRN, Starting on Thu07/08/17 at 0939, Until Larissa 07/09/17 at 1130, Opioid Reversal, Routine, Recovery (only) ondansetron (PF) (ZOFRAN) injection 4 mg 4 mg, intravenous, PRN, 1 dose, Starting on Thu07/08/17 at 0939, Until Larissa 07/09/17 at 1130, Nausea, Vomiting, Routine, Recovery (only) oxyCODONE (ROXICODONE) immediate release tablet 5-10 mg 5-10 mg, oral, EVERY 6 HOURS PRN, Starting on Thu07/08/17 at 1115, Until Larissa 07/09/17 at 1130, Pain, pain greater than 4/10 , Routine, On Unit Given 07/09/2017 3:38 EST 5 mg Given 07/08/2017 20:18 EST 5 mg oxyCODONE (ROXICODONE) immediate release tablet 5-10 mg 5-10 mg, oral, EVERY 30 MINUTES PRN, 2 doses, Starting on Thu07/08/17 at 0939, Until Larissa 07/09/17 at 1130, Pain, Routine, Recovery (only) sodium chloride 0.9 % flush 3 mL 3 mL, intravenous, PRN, Starting on Larissa 07/09/17 at 0800, Until Larissa 07/09/17 at 1130, Line Care, Routine, On Unit documented in this encounter Discontinued Medications Medication Sig Discontinue Reason Start Date End Da te buPROPion (WELLBUTRIN XL) 300 mg XL tablet Take 300 mg by mouth daily. Reported on 01/06/2017 Patient Stopped Taking 07/06/2017 biotin 1 mg capsule Take 1 Cap by mouth daily. Patient Stopped Taking 07/06/2017 niacin 50 mg tablet Take 50 mg by mouth at bedtime. Patient Stopped Taking 07/06/2017 PANTOTHENIC ACID ORAL Take by mouth. Patient Stopped Taking 07/06/2017 pyridoxine, vitamin B6, (VITAMIN B6) 50 mg tablet Take 50 mg by mouth daily. Patient Stopped Taking 07/06/2017 riboflavin, vitamin B2, (B-2) 100 mg tablet tablet Take 100 mg by mouth daily. Patient Stopped Taking 07/06/2017 selenium 100 mcg tablet Take 200 mcg by mouth daily. Patient Stopped Taking 07/06/2017 thiamine (VITAMIN B1) 100 mg tablet Take 100 mg by mouth daily. Patient Stopped Taking 07/06/2017 UNABLE TO FIND Med Name: Concentrated polyphenol blend Patient Stopped Taking 07/06/2017 HYDROcodone-acetamino phen (NORCO) 5-325 mg tablet Take 1-2 Tabs by mouth every 4 hours as needed for Pain. Therapy completed 01/04/2014 07/09/2017 polyethylene glycol (GOLYTELY) 236-22.74-6.74 gram suspensionIndications :Special screening for malignant neoplasms, colon TAKE DIRECTED.. Therapy completed 03/10/2014 07/09/2017 documented as of this encounter Historical Medications * This list may reflect changes made after this encounter. Medication Sig Dispensed Refills Start Date End Date vitamin A 10,000 unit capsule Take 5,000 Units by mouth three times a week. added in this encounter Active and Recently Administered Medications Times are shown in EST. Scheduled Medication Order 07/07/2017 07/08/2017 07/09/2017 acetaminophen (TYLENOL) tablet 1,000 mg (COMPLETED) 1,000 mg, oral, PRE-OP ONCE, 1 dose, On Thu07/08/17 at 0745, Routine, Pre-Op DOS Rx Approved 07 (Given - Provider: Duong Maldonado, ERNESTO) acetaminophen (TYLENOL) tablet 1,000 mg 1,000 mg, oral, EVERY 6 HOURS, First dose on Thu07/08/17 at 1200, Until Discontinued, Routine, On Unit 1238 (Given - Provider: Sandra Saldivar RN)1818 (Given - Provider: Sandra Saldivar RN)230 (Given - Provider: Patsy Rehman RN) 0600 (Given - Provider: Patsy Rehman RN) enoxaparin (LOVENOX) injection 40 mg 40 mg, subcutaneous, DAILY, First dose on Thu07/08/17 at 1145, Until Discontinued, Routine, On Unit 1238 (Given - Provider: Sandra Saldivar RN) 0817 (Not Given - Provider: Joey Wren RN - Reason: Patient/family refused) ibuprofen (MOTRIN) tablet 600 mg (COMPLETED) 600 mg, oral, PRE-OP ONCE, 1 dose, On Thu07/08/17 at 0745, Routine, Pre-Op DOS Rx Approved 0730 (Given - Provider: Duong Maldonado RN) ketOROLAC (TORADOL) injection 15 mg 15 mg, intravenous, EVERY 6 HOURS, 8 doses, First dose on Thu07/08/17 at 1145, Last dose on Thu07/10/17 at 0545, Routine, On Unit 1239 (Given - Provider: Sandra Saldivar RN)181 (Given - Provider: Sandra Saldivar RN)230 (Given - Provider: Patsy Rehman RN) 0600 (Given - Provider: Patsy Rehman RN) Continuous Medication Order 07/07/2017 07/08/2017 07/09/2017 dextrose 5 % and 0.45 % NaCl with KCl 20 mEq/L infusion 50 mL/hr, intravenous, CONTINUOUS, Starting on Thu07/08/17 at 1145, Until Larissa 07/09/17 at 1130, Routine, On Unit 1110 (Rate Documented - Provider: Sandra Saldivar, RN)1215 (New Bag - Provider: Sandra Saldivar, RN)1843 (Rate Documented - Provider: Rina Licea RN)202 (Rate Documented - Provider: Patsy Rehman, ERNESTO) lactated ringers (LR) infusion 25 mL/hr, intravenous, CONTINUOUS, Starting on Thu07/08/17 at 0745, Until Larissa 07/09/17 at 1130, Routine, Pre-Op DOS Rx Approved 0729 (New Bag - Provider: Duong Maldonado RN)0948 (Completed - Provider: Carmina Woody, ERNESTO) lactated ringers (LR) infusion at 75 mL/hr, intravenous, CONTINUOUS, Starting on Thu07/08/17 at 1000, Until Larissa 07/09/17 at 1130, Routine, Recovery (only) 0948 (Rate Change - Provider : Carmina Woody, ERNESTO)1215 (Completed - Provider: Sandra Saldivar, ERNESTO) PRN Medication Order 07/07/2017 07/08/2017 07/09/2017 atropine 0.1 mg/mL syringe 0.5 mg 0.5 mg, intravenous, PRN, Starting on Thu07/08/17 at 0939, Until Larissa 07/09/17 at 1130, Symptomatic HR < 50, Routine, Recovery (only) diphenhydrAMINE (BENADRYL) injection 12.5 mg 12.5 mg, intravenous, PRN, 1 dose, Starting on Thu07/08/17 at 0939, Until Larissa 07/09/17 at 1130, nausea, Routine, Recovery (only) fentaNYL citrate (PF) 50 mcg/mL injection 25-50 mcg 25-50 mcg, intravenous, EVERY 5 MIN PRN, Starting on Thu07/08/17 at 0939, Until Larissa 07/09/17 at 1130, Pain, Routine, Recovery (only) morphine injection 1-2 mg 1-2 mg, intravenous, EVERY 3 HOURS PRN, Starting on Thu07/08/17 at 1115, Until Larissa 07/09/17 at 1130, Pain, pain still greater than 4/10 after oral medication, Routine, On Unit naloxone (NARCAN) injection 0.2 mg 0.2 mg, intravenous, PRN, Starting on Thu07/08/17 at 0939, Until Larissa 07/09/17 at 1130, Opioid Reversal, Routine, Recovery (only) ondansetron (PF) (ZOFRAN) injection 4 mg 4 mg, intravenous, PRN, 1 dose, Starting on Thu07/08/17 at 0939, Until Larissa 07/09/17 at 1130, Nausea, Vomiting, Routine, Recovery (only) oxyCODONE (ROXICODONE) immediate release tablet 5-10 mg 5-10 mg, oral, EVERY 6 HOURS PRN, Starting on Thu07/08/17 at 1115, Until Larissa 07/09/17 at 1130, Pain, pain greater than 4/10 , Routine, On Unit 2018 (Given - Provider: Patsy Rehman RN) 337 (Given - Provider: Patsy Rehman RN) oxyCODONE (ROXICODONE) immediate release tablet 5-10 mg 5-10 mg, oral, EVERY 30 MINUTES PRN, 2 doses, Starting on Thu07/08/17 at 0939, Until Larissa 07/09/17 at 1130, Pain, Routine, Recovery (only) sodium chloride 0.9 % flush 3 mL(Linked Group 1) 3 mL, intravenous, PRN, Starting on Larissa 07/09/17 at 0800, Until Larissa 07/09/17 at 1130, Line Care, Routine, On Unit Linked Groups Order Group 1: Change IV to Saline Lock (CANCELED) Routine, ONE TIME, On Larissa 07/09/17 at 0800, For 1 occurrence, On Unit And sodium chloride 0.9 % flush 3 mLJump to med 3 mL, intravenous, PRN, Starting on Larissa 07/09/17 at 0800, Until Larissa 07/09/17 at 1130, Line Care, Routine, On Unit documented in this encounter Orders Medications Ordered That Greg ht Not Have Been Administered Count Last Ordered Date First Ordered Date atropine 0.1 mg/mL syringe 0.5 mg 1 017 diphenhydrAMINE (BENADRYL) i njection 12.5 mg 1 07/08/2017 fentaNYL citrate (PF) 50 mcg /mL injection 25-50 mcg 1 07/08/2017 morphine injection 1-2 mg 1 07/08/2017 naloxone (NARCAN) injection 0.2 mg 1 2016 ondansetron (PF) (ZOFRAN) injection 4 mg 1 07/08/2017 oxyCODONE (ROXICODONE) immed iate release tablet 5-10 mg 1 07/08/2017 sodium chloride 0.9 % flush 3 mL 1 07/08/20 17 Diet Count Last Ordered Date First Orde red Date DISCHARGE DIET 1 07/09/2017 Nursing Count Last Ordered Date First Orde red Date ACTIVITY INSTRUCTIONS 1 07/09/2017 BATHING INSTRUCTIONS 1 07/09/2017 DRIVING INSTRUCTIONS 1 07/09/2017 WOUND CARE INSTRUCTIONS 1 07/09/2017 Admission Count Last Ordered Date First Orde red Date STATUS: OUTPATIENT SURGICAL OP BED/SERVICES 1 07/08/2017 Transfer Count Last Ordered Date First Orde red Date NOTIFY PPS OF DISCHARGE COMPLETE 1 07/09/20 17 NOTIFY PPS PATIENT ARRIVAL IN PACU 1 2016 NOTIFY PPS PATIENT TRANSFERRED OUT OF PACU 1 07/08/2017 PPS NOTIFICATION OF PATIENT ARRIVAL ON UNIT 1 07/08/2017 Discharge Count Last Ordered Date First Orde red Date DISCHARGE PATIENT 1 07/09/2017 documented in this encounter Care Teams Seater Grinder Relationship Specialty Start Date End Date Beatrice Dickens MD [address] [place] [phone] PCP - General 12/06/13 documented as of this encounter
--- OUTSIDE RECORDS SUMMARY | 2024-04-04 18:54 | XMS_ITS | Clinical Summary ---
Author Organization [facility] Address [address] [place] [address] Care Team Providers Care Environmental Monitoring Specialist Name Role Phone Beatrice Dickens MD Primary Care Provider [phone] Allergies Active Allergy Reactions Criticality Noted Date [...] Take 500 mcg by mouth daily. Active fogpaa-klfxtgbo-tebt ase (ZENPEP) 10,000-34,000 -55,000 unit per capsule Take 1 Cap by mouth daily. Active folic acid (FOLVITE) 1 mg tablet Take 400 mcg by mouth daily. Active Chromium 200 mcg tablet Take by mouth daily. Acti ve Qxzmr-2-FUZ-EPA-Fish Oil (FISH OIL) 1,000 mg (120 mg-180 [...] naloxone (NARCAN) 4 mg/actuation nasal spray 1 [place] by nasal route as needed for Opioid [...] 12/02/2013 Overview: ? Of benign positional vertigo Surgical History Surgery Date Site/Laterality Comments SECTION x3 OTHER SURGICAL HISTORY fistula repair Medical History Medical History Date Comments Chronic sinusitis Chest pain neg ETT Hyperlipidemia resolved with di et Mental disorder anxiety Colon polyp Family History Medical History Relation Comments High Cholesterol Brother Heart Disease Maternal Grandfather Cancer Mother anal/lung cancer Heart Disease Mother High Blood Pressure Mother Heart Disease Paternal Grandfather Relation Status Comments Brother Maternal Grandfather Mother (Age 90) anal and lung cancerin 80s age 90 Paternal Grandfather Social History Tobacco Use Types Packs/Day Years [...] on file Sexual Orientation Not on file Obstetrics History Last Filed Vital Signs Vital Sign Reading [...] Body Mass Index 27.11 08/12/2017 1345 EST Plan of Treatment Health Maintenance Due Date Last Done Comments Hepatitis C Screen 1950 RSV Immunization ( o r 60+ Years) (1 - 1-dose 60+ series) 2010 Fall Risk Screening 08/12/2018 08/12/2017 Colonoscopy (Colon Cancer Screening) 04/05/201901/2014 COVID-19 Vaccine ( season) 2023 Procedures Procedure Name Priority Date/Time Associated Diagnosis Comments COLONOSCOPY PROCEDURE Routine 04/05/2014 from Last 3 Months or Most Recently Relevant to Health Maintenance Results * COLONOSCOPY (04/05/2014) Colonoscopy [facility] Comment:Repeat colo in 5-10 years Colonoscopy, External [facility] Anatomical Region Laterality Modality Endoscopy 04/05/2014 Historical Provider GI PROCEDURE TOYIN HORAN from Last 3 Months or Most Recently Relevant to Health Maintenance [phone] (Work) [address] [place] [id number] Rose Personal/Family Self [phone] (Work) [address] [place] [phone] Rose Personal/Family Self [phone] (Work) [address] [place] [id number] Jurado Personal/Family Self [phone] (Work) [address] [place] [id number] Sarah Wiggins Personal/Family Self [phone] (Work) [address] [place] [id number] Rose Personal/Family Self [phone] (Work) [address] [place] [id number] Jurado Personal/Family Self [phone] (Work) [address] [place] [id number] Rose Personal/Family Self [phone] (Work) [address] [place] [phone] Advance Directives For more information, please contact: [phone] * Full Code (Latest Code Status on File) Date Activated Date Inactivated Comments 07/08/2017 11:15 07/09/2017 11:30 Question Answer Comments Reason for decision includes: Full code consistent with overall plan of care Who participated in the discussion? Patient Care Teams Environmental Monitoring Specialist Relationship Specialty Start Date End Date Beatrice Dickens MD [address] [place] [address] PCP - General 12/06/13
--- OUTSIDE RECORDS SUMMARY | 2024-04-04 18:54 | XMS_ITS | Encounter Summary ---
Author Organization [facility] Address [address] [place] [address] Care Team Providers Care Lead Installer Name Role Phone Beatrice Dickens MD Primary Care Provider Encounter Details Date Type Department Care Team (Late st Contact Info) Description 06/17/2017 Historical Results Only [facility] - Main [address] [id number] Beatrice Dickens MD [address] [place] [address] [address] [place] [phone] Social History Tobacco Use Types Packs/Day Years [...] Procedure Name Priority Date/Time Associated Diagnosis Comments VIT D, 25-HYDROXY - [facility] Routine 06/17/2017 8:29 EDT HIGH SENSITIVITY C-REACTIVE PROTEIN (CARDIOVASCULAR DISEASE) Routine 06/17/2017 8:29 EDT TSH Routine 06/17/2017 8:29 EDT IRON Routine 06/17/2017 8:29 EDT FOLATE Routine 06/17/2017 8:29 EDT VITAMIN B12 Routine 06/17/2017 8:29 EDT LIPID PROFILE (INCLUDES CHOLESTEROL, TRIGLYCERIDES, HDL, LDL) Routine 06/17/2017 8:29 EDT COMPREHENSIVE METABOLIC PANEL (CMP) Routine 06/17/2017 8:29 EDT documented in this encounter Results * IRON (06/17/2017 8:29 EDT) Pathologist [facility] SERUM IRON - [facility] 77 37 - 170 ug/dL 06/17/2017 12:23 EDT [facility] 06/17/2017 8:29 EDT 06/17/2017 8:30 EDT Narrative [facility] - 06/17/2017 12:23 EDT Does PT Have a Latex Allergy? NO Beatrice Dickens MD CHEMISTRY & BLOOD G ORDERABLES Performing Organization Address [facility] de Phone Number [facility] * HIGH SENSITIVITY C-REACTIVE PROTEIN (CARDIOVASCULAR DISEASE) (06/17/2017 8:29 EDT) [facility] CRP HIGH SENSITIVITY - [facility] 2.23 mg/L 06/17/2017 12:23 EDT [facility] Comment: Risk ? hsCRP (mg/L) Low: ?< 1.0 Average: ?1.0-3.0 High: ? > 3.0 - 10.0 Indeterminant: ??> 10.0 06/17/2017 8:29 EDT 06/17/2017 8:30 EDT Narrative [facility] - 06/17/2017 12:23 EDT Does PT Have a Latex Allergy? NO Beatrice Dickens MD CHEMISTRY & BLOOD G ORDERABLES Performing Organization Address [facility]/State/ZIP Co de Phone Number [facility] * COMPREHENSIVE METABOLIC PANEL (CMP) (06/17/2017 8:29 EDT) Albumin % 4.3 3.4 - 4.9 g/dL 06/17/2017 12:23 [facility] ALKALINE PHOSPHATASE - [facility] 78 38 - 126 U/L 06/17/2017 12:23 [facility] BILIRUBIN TOTAL 0.3 0.2 - 1.3 mg/dL 06/17/2017 12:23 [facility] BUN - [facility] 19 10 - 26 mg/dL 06/17/2017 12:23 [facility] CALCIUM - [facility] 9.2 8.5 - 10.5 mg/dL 06/17/2017 12:23 [facility] Chloride 108 96 - 110 mmol/L 06/17/2017 12:23 [facility] CO2 Total 26 22 - 32 mEq/L 06/17/2017 12:23 [facility] CREATININE 0.83 0.52 - 1.04 mg/dL 06/17/2017 12:23 [facility] eGFR >60 06/17/2017 12:23 [facility] Comment: Chronic renal impairment is defined as GFR <60 Multiply result by 1.210 for patients. eGFR calculated using the IDMS-traceable MDRD Study Equation. ??(effective 07/03/2014) Anion Gap 10 5 - 15 06/17/2017 12:23 [facility] GLUCOSE - [facility] 85 70 - 100 mg/dL 06/17/2017 12:23 [facility] Potassium 4.3 3.5 - 5.0 mEq/L 06/17/2017 12:23 [facility] Sodium 144 136 - 145 mEq/L 06/17/2017 12:23 [facility] TOTAL PROTEIN - [facility] 7.1 6.2 - 8.2 gm/dL 06/17/2017 12:23 [facility] SGOT/AST - [facility] 28 14 - 36 U/L 06/17/2017 12:23 [facility] SGPT/ALT - [facility] 41 9 - 52 U/L 7 12:23 EDT [facility] 06/17/2017 8:29 EDT 06/17/2017 8:30 EDT [facility] - 06/17/2017 12:23 EDT Does PT Have a Latex Allergy? NO Beatrice Dickens MD CHEMISTRY & BLOOD G ORDERABLES Performing Organization Address [facility] Co de Phone Number [facility] * (ABNORMAL) FOLATE (06/17/2017 8:29 EDT) [facility] FOLIC ACID [facility] >20.00(H) 2.76- >20.0 ng/mL 06/17/2017 13:22 EDT [facility] 06/17/2017 8:29 EDT 06/17/2017 8:30 EDT [facility] - 06/17/2017 13:22 EDT FAX TO [id number] Does PT Have a Latex Allergy? NO Results faxed on 06/18/17 1307 by MIKAYLA Beatrice Dickens MD CHEMISTRY & BLOOD G ORDERABLES Performing Organization Address [facility] Co de Phone Number [facility] * VITAMIN B12 (06/17/2017 8:29 EDT) [facility] VITAMIN B12 [facility] 481 239 - 931 pg/mL 06/17/2017 13:22 EDT [facility] 06/17/2017 8:29 EDT 06/17/2017 8:30 EDT [facility] - 06/17/2017 13:22 EDT FAX TO [phone] Does PT Have a Latex Allergy? NO Results faxed on 06/18/17 1307 by MIKAYLA Beatrice Dickens MD CHEMISTRY & BLOOD G ORDERABLES Performing Organization Address [facility] Co de Phone Number [facility] * VIT D, 25-HYDROXY - [facility] (06/17/2017 8:29 EDT) Pathologist [facility] VIT D, 25 HYDROXY [facility] 63.8 30 - 100 ng/ml 06/17/2017 12:46 EDT [facility] Comment: ? 25-Hydroxy D Total (D2+D3) ?Expected Values Deficient: ?<20 ng/ml Insufficient: ? 20- <30 ng/ml Sufficient: ? 30-100 ng/ml Potential intoxication: >100 ng/ml 06/17/2017 8:29 EDT 06/17/2017 8:29 EDT [facility] - 06/17/2017 12:46 EDT [id number] Results faxed on 06/18/17 1307 by MIKAYLA Beatrice Dickens MD CHEMISTRY & BLOOD G ORDERABLES Performing Organization Address [facility] de Phone Number [facility] * TSH (06/17/2017 8:29 EDT) [facility] THYROID STIM HORMONE [facility] 0.81 0.46 - 4.68 uIU/ml 06/17/2017 12:46 EDT [facility] 06/17/2017 8:29 EDT 06/17/2017 8:29 EDT [facility] - 06/17/2017 12:46 EDT [id number] Results faxed on 06/18/17 1307 by MIKAYLA Beatrice Dickens MD CHEMISTRY & BLOOD G ORDERABLES Performing Organization Address [facility]/ZIP Co de Phone Number [facility] * (ABNORMAL) LIPID PROFILE (INCLUDES CHOLESTEROL, TRIGLYCERIDES, HDL, LDL) (06/17/2017 8:29 EDT) Triglyceride 238 <150 mg/dL 06/17/2017 12:25 EDT [facility] Comment: Adult: Normal: ?<150 mg/dl ? Borderline High: 150-199 mg/dl ? High: ?200-499 mg/dl ? Very High: >er=318 Cholesterol 264 <200 mg/dL 06/17/2017 12:25 EDT [facility] Comment: Acceptable: ??<200 Borderline: ??200-239 High: ?> or = 240 Chol/HDL Ratio 6.2(H) 0 - 4.5 06/17/2017 12:25 [facility] Comment: DESIRABLE RATIO IS LESS THAN 4.1 PATIENTS ARE CONSIDERED AT RISK: WOMEN RATIO >5 MEN RATIO >6 FASTING? - [facility] Yes 7 8:30 EDT [facility] HDL 42 40 - 60 mg/dL 06/17/2017 12:25 [facility] Comment: ?? Reference Range Low: ? < 40 ??mg/dL Normal: ??40-60 mg/dL High: ?>= 60 mg/dL LDL CHOLESTEROL - [facility] 174(H) 60 - 100 mg/dL [facility]/17[facility]2017 [facility] HDL Cholesterol 222 mg/dl 06/17/2017 12:25 [facility] Comment: Desirable: ?Less than 130 Borderline High: ??130-159 High: ? 160-189 Very High: ?Greater than or equal to 190 06/17/2017 8:29 EDT 06/17/2017 8:29 EDT Beatrice Dickens MD CHEMISTRY & BLOOD G ORDERABLES [facility] documented in this encounter Visit Diagnoses Not on filedocumented in this encounter Care Teams Lead Installer Relationship Specialty Start Date End Date Dobbertin, Beatrice M, MD [address] [place] [address] [address] [place] [phone] PCP - General 12/06/13 documented as of this encounter
--- OUTSIDE RECORDS SUMMARY | 2024-04-04 18:54 | XMS_ITS | Encounter Summary ---
Author Organization [facility] Address [address] [place] [address] Care Team Providers Care Material Movers Name Role Phone Beatrice Dickens MD Primary Care Provider [phone] Encounter Details Date Type Department Care Team (Latest Contact Info) Description 06/27/2019 12:09 EDT - 06/27/2019 23:59 EDT Hospital Encounter [address] [address] Unknown, Provider, Discharge Disposition: Home or Self Care Social [...] No 08/12/2017 documented as of this encounter Medications at Time of Discharge [...] as needed for Pain. Reported on 01/06/2017 hudocy-ommgueak-nzjksfh (ZENPEP) 10,000-34,000 -55,000 unit per capsule Take 1 Cap by mouth daily. Magnesium Glycinate 100 mg tablet Take 300 mg by mouth. methylphenidate (RITALIN;METHYLIN) 10 mg tablet Take 10 mg by mouth 3 times daily. naloxone (NARCAN) 4 mg/actuation nasal spray 1 [place] by nasal route as needed for Opioid Reversal. 2 Each 07/09/2017 Pnvcy-2-TZF-EPA-Fish Oil (FISH OIL) 1,000 mg (120 mg-180 [...] Units by mouth three times a week. documented as of this encounter Discharge Disposition Disposition Code Departure Means Destination Home or Self Nursing Home documented in this encounter Plan of Treatment Not on file documented as of this encounter Visit Diagnoses Not on filedocumented in this encounter Care Teams Material Movers Relationship Specialty Start Date End Date Beatrice Dickens MD [address] [place] [phone] PCP - General 12/06/13 documented as of this encounter
--- OUTSIDE RECORDS SUMMARY | 2024-04-04 18:55 | XMS_ITS | Encounter Summary ---
Author Organization [facility] Address [address] [place] [address] Care Team Providers Care Fashion Show Director Name Role Phone Beatrice Dickens MD Primary Care Provider [phone] Encounter Details Date Type Department Care Team (Late st Contact Info) Description 02/07/2014 Results Only [facility] Laboratory Services - [facility] ([facility] [address] [place] [place], [place] [id number] Beatrice Dickens MD [address] [place] [address] [address] [place] [phone] Social History Tobacco Use Types Packs/Day Years [...] Diagnosis Comments PAP TEST- RESULT ONLY Routine 02/07/2014 0:00 EDT documented in this encounter Results * PAP TEST- RESULT ONLY (02/07/2014 0:00 EDT) Pathology Report: CYTOPATHOLOGY REPORT Reports generated via electronic interface contain original data; however they are lacking the format of the original report. Caution should be taken when reading/interpreti ng unformatted reports. Name: ? SARAH CHAPMAN ? Accession #: ? [id number] ? : ? 1950 (Age: 63) ??F ?Collect Date: ? 02/07/2014 ? Location: ? [facility] ? Receive Date: ? 02/08/2014 ? Provider: BEATRICE DICKENS MD Copy to: ? Final Report SPECIMEN ADEQUACY ? Satisfactory for Evaluation - transformation zone component present GENERAL CATEGORIZATION ? Negative for Intraepithelial Lesion or Malignancy ?? Menstrual/Pregnanc y Status: ??Post Menopausal Hormonal/Contracep tive status: Yes: Vagifem Specimen/Source: ??Pap Test, Cervix/Endocervix, ThinPrep Imaging System with manual evaluation Document reviewed and electronically signed by: ? KARAN De(ASCP) ? Report ??Date: 02/15/2014 15:15 HPV with Pap Test ? Date Ordered: ? 02/15/2014 ? Status: ?? Signed Out ?Date Complete: ? 02/17/2014 ? By: ??System Interface ? Date Reported: ? 02/17/2014 ? Interpretation RESULT: Negative for HPV. No E6 or E7 mRNA is detected from HPV types 16,18,31,33,35, 39,45,51,52,56,58, 59,66, and 68 by professor of forestry mediated amplification. Comments Document reviewed and electronically signed by: ? System Interface ? Report date: 02/17/2014 By the signature above, the attending physician certifies that he/she has personally conducted a gross and/or microscopic examination of the described specimens and rendered or confirmed the above diagnosis. End of Report [facility] 02/07/2014 02/08/2014 Beatrice Dickens MD PATHOLOGY ORDERABLE S Performing Organization Address City/State/[facility] Co de Phone Number [facility] [address] [place] [address] documented in this encounter Visit Diagnoses Not on filedocumented in this encounter Care Teams Fashion Show Director Relationship Specialty Start Date End Date Beatrice Dickens MD [address] [place] [address] PCP - General 12/06/13 documented as of this encounter
--- OUTSIDE RECORDS SUMMARY | 2024-04-04 18:55 | XMS_ITS | Encounter Summary ---
Author Organization [facility] Address [address] [place] [address] Care Team Providers Care Forensic Medical Examiner Name Role Phone Beatrice Dickens MD Primary Care Provider [phone] Encounter Details Date Type Department Care Team (Late st Contact Info) Description 01/04/2014 Orders Only [facility] General Surgery - [facility] [address] [place], [place] [address] Susan Zuluaga, ERNESTO Social History Tobacco Use Types Packs/Day Years Used Date Smoking Tobacco: Never Smokeless Tobacco: Never Alcohol Use Standard Drinks/Week Comments Yes 0 (1 standard drink = 0.6 oz pur e alcohol) rare Sex and Gender Information Value Date Recorded Sex Assigned at Not on file Gender Identity Not on file Sexual Orientation Not on file documented as of this encounter Ordered Prescriptions Prescription Sig Dispensed Refills Start Date End Da te HYDROcodone-acetaminophen (NORCO) 5-325 mg tablet Take 1-2 Tabs by mouth every 4 hours as needed for Pain. 20 Tab 0 01/04/2014 07/09/2017 documented in this encounter Plan of Treatment Not on file documented as of this encounter Visit Diagnoses Not on filedocumented in this encounter Care Teams Forensic Medical Examiner Relationship Specialty Start Date End Date Beatrice Dcikens MD [address] [place] [address] [address] [place] [phone] PCP - General 12/06/13 documented as of this encounter
--- OUTSIDE RECORDS SUMMARY | 2024-04-04 18:55 | XMS_ITS | Encounter Summary ---
Author Organization [facility] Address [address] [place] [address] Care Team Providers Care Strategic Marketing Specialist Name Role Phone Beatrice Dickens MD Primary Care Provider [phone] Encounter Details Date Type Department Care Team (Latest Contact Info) Description 04/05/2014 9:18 EDT - 04/05/2014 12:09 EDT Hospital Encounter [facility] Endoscopy Outpatient [address] [place] [address] Israel Velez MD Discharge Disposition: Home or Self Care Social [...] Sign Reading Time Taken Comments Blood Pressure 100/54 04/05/2014 1100 EDT Pulse - - Temperature 36.3 ??C (97.3 ??F) 04/05/2014 1100 EDT Respiratory Rate 16 04/05/2014 1100 EDT Oxygen Saturation 100% 04/05/2014 1100 EDT Inhaled Oxygen Concentration - - Weight - - Height - - Body Mass Index - - documented in this encounter Medications at Time of Discharge Medication Sig Dispensed Refills Start Date End Date cetirizine (ZYRTEC) 10 mg tablet Take 10 mg by mouth daily. Cholecalciferol, Vitamin D3, 2,000 unit capsule Take 10,000 mg by mouth. ibuprofen (MOTRIN) 200 mg tablet Take 200 mg by mouth as needed for Pain. Reported on 01/06/2017 propranolol (INDERAL) 40 mg tablet Take 10 mg by mouth as needed. Triamcinolone Acetonide (KENALOG) 0.025 % Lotion by topical (top) route 2 times daily. Reported on 01/06/2017 buPROPion (WELLBUTRIN XL) 300 mg XL tablet Take 300 mg by mouth daily. Reported on 01/06/2017 07/06/2017 HYDROcodone-acetaminoph en (NORCO) 5-325 mg tablet Take 1-2 Tabs by mouth every 4 hours as needed for Pain. 20 Tab 0 01/04/2014 07/09/2017 polyethylene glycol (GOLYTELY) 236-22.74-6.74 gram suspensionIndications:S pecial screening for malignant neoplasms, colon TAKE DIRECTED.. 1 Bottle 0 03/10/2014 07/09/2017 documented as of this encounter Discharge Disposition Disposition Code Departure Means Destination Home or Self Retirement documented in this encounter H&P Notes * Israel Velez MD - 04/05/2014 1204 EDT Sedation for Procedure History & Physical Date: 04/05/2014 Time: 12:04 Location: [address] Planned Procedure: Colonoscopy Chief Complaint/Indications for Procedure: Tubular adenoma, 2006. History Previous Complication with Sedation and/or Anesthesia? No Allergies: Allergies Allergen Reactions ??? Sulfa (Sulfonamide Antibiotics) Hives ??? Gabapentin [place] Current Medications: Current Outpatient Prescriptions Medication Sig Dispense Refill ??? buPROPion (WELLBUTRIN XL) 300 mg XL tablet Take 300 mg by mouth daily. ??? cetirizine (ZYRTEC) 10 mg tablet Take 10 mg by mouth daily. ??? Cholecalciferol, Vitamin D3, 2,000 unit capsule Take by mouth. ??? HYDROcodone-acetaminophen (NORCO) 5-325 mg tablet Take 1-2 Tabs by mouth every 4 hours as needed for Pain. 20 Tab 0 ??? ibuprofen (MOTRIN) 200 mg tablet Take 600 mg by mouth as needed for Pain. ??? polyethylene glycol (GOLYTELY) 236-22.74-6.74 gram suspension TAKE DIRECTED.. 1 Bottle 0 ??? propranolol (INDERAL) 40 mg tablet Take 40 mg by mouth daily. ??? Triamcinolone Acetonide (KENALOG) 0.025 % Lotion Apply topically 2 times daily. Current Facility-Administered Medications Medication Dose Route Frequency Provider Last Rate Last Dose ??? fentaNYL citrate (PF) 50 mcg/mL injection 100-250 mcg 100-250 mcg intravenous Once PRN Israel Velez MD ??? flumazenil (ROMAZICON) injection 0.2 mg 0.2 mg intravenous PRN Israel Velez MD ??? lactated ringers (LR) infusion 30 mL/hr intravenous CONTINUOUS Israel Velez MD 30 mL/hr at 04/05/14 1125 30 mL/hr at 04/05/14 1125 ??? meperidine (PF) (DEMEROL) 100 mg/mL injection 25-200 mg 25-200 mg intravenous Once PRN Israel Velez MD ??? midazolam (PF) (VERSED) 1 mg/mL injection 1-10 mg 1-10 mg intravenous Once PRN Israel Velez MD ??? nalOXone (NARCAN) injection 0.4 mg 0.4 mg intravenous PRN Israel Velez MD ??? ondansetron (PF) (ZOFRAN) injection 2-4 mg 2-4 mg intravenous PRN Israel Velez MD Past Medical History: Past Medical History Diagnosis Date ??? Chronic sinusitis ??? Chest pain neg ETT ??? Hyperlipidemia resolved with diet ??? Mental disorder anxiety ??? Colon polyp Social History: Past Surgical History Procedure Laterality Date ??? section x3 ??? Other surgical history fistula repair History Substance Use Topics ??? Smoking status: Never Smoker ??? Smokeless tobacco: Never Used ??? Alcohol Use: Yes Comment: rare Family History: Family History Problem Relation Age of Onset ??? Heart Disease Mother ??? Cancer Mother anal/lung cancer ??? High Blood Pressure Mother ??? High Cholesterol Brother ??? Heart Disease Maternal Grandfather ??? Heart Disease Paternal Grandfather Review of Systems as pertinent: Physical Exam Vital Signs: BP 100/54 Temp(Src) 36.3 ??C (97.3 ??F) (Tympanic) Resp 16 SpO2 100% Heart Examination: Cardiac Regularity: Regular Respiratory Examination: Respiratory Pattern: Regular Breath Sounds Right: Clear Breath Sounds Left: Clear Additional physical exam related to the proposed procedure, patient activity, disease state and treatment as pertinent: Assessment Previous complications with sedation or anesthesia?: No Airway Concerns: None Anesthesia Classification: ASA 2 Plan: Proceed with sedation for procedure Fasting Time: Time of last liquid intake: 1000 Date of Last Liquid Intake: 04/05/14 Date of last solid intake: 04/03/14 Patient Appropriate Candidate for Planned Sedation?: Yes Israel Velez MD 04/05/2014 12:04 documented in this encounter Procedure Notes * LEGISLATIVE AIDE, SCAN 2 - 04/06/2014 0035 EDTAssociated Order(s): PROCEDURE REPORTS - SCANNED documented in this encounter Plan of Treatment Not on file documented as of this encounter Procedures Procedure Name Priority Date/Time Associated Diagnosis Comments PROCEDURE REPORTS - SCANNED 04/06/2014 0:35 EDT documented in this encounter Results * PROCEDURE REPORTS - SCANNED (04/06/2014 0:35 EDT) 04/06/2014 0:35 EDT Narrative 04/06/2014 1:42 EDT Procedure Note LEGISLATIVE AIDE, SCAN 2 - 04/06/2014 0:35 EDT Scan 2 Mental Retardation Aide PROCEDURE/MINOR CLAUDE GICAL ORDERABLES documented in this encounter Visit Diagnoses Not on filedocumented in this encounter Administered Medications Inactive Administered Medications - up to 3 most recent administrations Medication Order MAR Action Action Date Dose Rate Site lactated ringers (LR) infusion 30 mL/hr, intravenous, CONTINUOUS, Starting on Thu04/05/14 at 1115, Until Thu04/07/14 at 0526, Routine, Preprocedure New Bag 04/05/2014 12:55 EDT 30 mL/hr 30 mL/hr New Bag 04/05/2014 11:25 EDT 30 mL/hr 30 mL/hr meperidine (PF) (DEMEROL) 100 mg/mL injection 25-200 mg 25-200 mg, intravenous, ONCE PRN, 1 dose, Starting on Thu04/05/14 at 1057, Until Thu04/05/14 at 1240, Other, sedation, Routine, Intraprocedure Given 04/05/2014 12:40 EDT 50 mg midazolam (PF) (VERSED) 1 mg/mL injection 1-10 mg 1-10 mg, intravenous, ONCE PRN, 1 dose, Starting on Thu04/05/14 at 1057, Until Thu04/05/14 at 1240, Sedation, Routine, Intraprocedure Given 04/05/2014 12:40 EDT 5 mg documented in this encounter Orders Medications Ordered That Greg ht Not Have Been Administered Count Last Ordered Date First Ordered Date fentaNYL citrate (PF) 50 mcg /mL injection 100-250 mcg 1 04/05/2014 flumazenil (ROMAZICON) injection 0.2 mg 1 0 04/05/2014 nalOXone (NARCAN) injection 0.4 mg 1 2013 ondansetron (PF) (ZOFRAN) injection 2-4 mg 1 04/05/2014 Discharge Count Last Ordered Date First Orde red Date DISCHARGE PATIENT 1 04/05/2014 documented in this encounter Care Teams Strategic Marketing Specialist Relationship Specialty Start Date End Date Beatrice Dickens MD [address] [place] [address] [address] [place] [phone] PCP - General 12/06/13 documented as of this encounter
--- OUTSIDE RECORDS SUMMARY | 2024-04-04 18:55 | XMS_ITS | Encounter Summary ---
Author Organization [facility] Address [address] [place] [address] Care Team Providers Care Can Line Examiner Name Role Phone Beatrice Dickens MD Primary Care Provider [phone] Reason for Visit * Reason Comments Follow-up from hem banding Encounter Details Date Type Department Care Team ([facility] st Contact Info) Description 02/22/2014 9:45 EDT Office Visit [facility] General Surgery - [place] [address] [place], [place] [id number] Jer Becerril MD [address] [place] [address] Internal hemorrhoids with other complication (Primary Dx) Discharge Disposition: Auto Discharge Social History Tobacco Use Types Packs/Day Years Used Date Smoking Tobacco: Never Smokeless Tobacco: Never Alcohol Use Standard Drinks/Week Comments Yes 0 (1 standard drink = 0.6 oz pur e alcohol) rare Sex and Gender Information Value Date Recorded Sex Assigned at Not on file Gender Identity Not on file Sexual Orientation Not on file documented as of this encounter Discharge Diagnoses Diagnosis 455.2 INT HEMRRHOID W COMP NEC[ICD-9-CM] documented in this encounter Discharge Disposition Disposition Code Departure Means Destination Auto Discharge documented in this encounter Progress Notes * Jer Becerril - 02/22/2014 1331 EDT DIVISION OF GENERAL SURGERY PROGRESS / FOLLOWUP NOTE - 02/22/2014 PROBLEM: Prolapsing hemorrhoids. SUBJECTIVE: Ms Wiggins comes back after her banding. She feels 85% of the way improved. There is alittle bulbous red area that she wonders about. She comes with a number of very appropriate questions. OBJECTIVE: On anal inspection, there is a little bit of prolapsing mucosa in the right anterior position that is essentially right at the dentate line. Digital and anoscopic exam demonstrates evidence of good banding effect. ASSESSMENT: Good response to hemorrhoid banding. I explained that if she wanted to get rid of this last residual component, it would likely need to be excised, either in the office with local anesthesia or in the operating room. Neither one of us thinks this is necessary. PLAN: We had a detailed discussion about long-term issues. We went over the followin. Excision of that residual component and the expected recovery and consequences if she decided that that was something she wished to do. 2. Indications for repeat banding. 3. The importance of adequate fluid and fiber as well as avoidance of straining at stools. 4. Worrisome patterns of bleeding. Jer Becerril MD, FACS 10 12 AM - Jer Becerril MD, FACS kn Dictation ID: [id number] cc: Beatrice Dickens MD, [place] [address] * Jer Becerril - 02/22/2014 0958 EDT This office note has been dictated. documented in this encounter Plan of Treatment Not on file documented as of this encounter Visit Diagnoses Diagnosis Internal hemorrhoids with other complication- Primary documented in this encounter Care Teams Can Line Examiner Relationship Specialty Start Date End Date Beatrice Dickens MD [address] [place] [address] [address] [place] [address] PCP - General 12/06/13 documented as of this encounter
--- OUTSIDE RECORDS SUMMARY | 2024-04-04 18:55 | XMS_ITS | Encounter Summary ---
Author Organization [facility] Address [address] [place] [address] Care Team Providers Care Brick Burner Name Role Phone Beatrice Dickens MD Primary Care Provider [phone] Encounter Details Date Type Department Care Team ([facility] st Contact Info) Description 06/28/2014 Orders Only [facility] General Surgery - [facility] [address] [place], [place] [address] Israel Velez MD Social History Tobacco Use Types Packs/Day Years [...] Associated Diagnosis Comments COLONOSCOPY PROCEDURE Routine 04/05/2014 documented in this encounter Results * COLONOSCOPY (04/05/2014) Colonoscopy [facility] Comment:Repeat colo in 5-10 years Colonoscopy, External [facility] Anatomical Region Laterality Modality Endoscopy 04/05/2014 Historical Provider GI PROCEDURE TOYIN HORAN documented in this encounter Visit Diagnoses Not on filedocumented in this encounter Care Teams Brick Burner Relationship Specialty Start Date End Date Beatrice Dickens MD [address] [place] [address] [address] [place] [address] PCP - General 12/06/13 documented as of this encounter
--- OUTSIDE RECORDS SUMMARY | 2024-04-04 18:55 | XMS_ITS | Encounter Summary ---
Author Organization [facility] Address [address] [place] [address] Care Team Providers Care Parking Patroller Name Role Phone Beatrice Dickens MD Primary Care Provider [phone] Reason for Visit * Reason Onset Date Comments Colonoscopy 03/10/2014 Encounter Details Date Type Department Care Team ([facility] st Contact Info) Description 03/10/2014 Telephone [facility] Gastroenterology - [place] [address] [place] [address] Israel Velez MD Colonoscopy Social History Tobacco Use Types Packs/Day Years [...] encounter Miscellaneous Notes * Telephone Encounter - Aristides Delgado - 03/10/2014 1445 EDT Pt called back to state that her insurance would cover her colonoscopy if her referring provider felt it was necessary. * Telephone Encounter - Aristides Delgado - 03/10/2014 1258 EDT Pt called to schedule colonoscopy. Advised patient to check with insurance as she wasn't sure when she had her last procedure. Pt stated that she wanted to go forward with scheduling her colonoscopy and would check with her insurance after her appointment was booked. documented in this encounter Plan of Treatment Not on file documented as of this encounter Visit Diagnoses Not on filedocumented in this encounter Care Teams Parking Patroller Relationship Specialty Start Date End Date Beatrice Dickens MD [address] [place] [address] PCP - General 12/06/13 documented as of this encounter
--- OUTSIDE RECORDS SUMMARY | 2024-04-04 18:55 | XMS_ITS | Encounter Summary ---
Author Organization [facility] Address [address] [place] [address] Care Team Providers Care Mid Level Developer Name Role Phone Beatrice Dickens MD Primary Care Provider [phone] Reason for Visit * Reason Comments New Patient Visit HEMS * Consult (Routine) - Closed Specialty Diagnoses / Procedures Referred By Contshahid t Referred To Contact General Surgery Diagnoses Other hemorrhoids Beatrice Dickens MD [address] [place] [address] [address] [place] [address] [place] [address] Gen Surgery [address] [place] [address] Referral ID Status Reason Start Date Expiration Date Visits Re quested Visits Authorized [id number] Closed 1 1 Encounter Details Date Type Department Care Team (Late st Contact Info) Description 01/06/2017 15:00 EDT Office Visit [facility] General Surgery - [address] [address] Tish Zamora MD [address] [facility], [address] [place] [address] External hemorrhoids with complication (Primary Dx) Discharge Disposition: Auto Discharge [...] Sign Reading Time Taken Comments Blood Pressure 120/70 01/06/2017 1442 EDT Pulse 68 01/06/2017 1442 EDT Temperature - - Respiratory Rate 14 01/06/2017 1442 EDT Oxygen Saturation - - Inhaled Oxygen Concentration - - Weight 70.2 kg (154 lb 12.8 oz) 01/06/2017 1442 EDT Height 165.1 cm (5' 5) 01/06/2017 1442 EDT Body Mass Index 25.76 01/06/2017 1442 EDT documented in this encounter Discharge Diagnoses Diagnosis K64.4 Residual hemorrhoidal skin tags-K64.4[ICD-10-CM] documented in this encounter Discharge Disposition Disposition Code Departure Means Destination Auto Discharge documented in this encounter Progress Notes * Tish Zamora MD - 01/06/2017 1500 EDT Colorectal Surgery Chief Complaint: hemorrhoids HPI: Patient is a 66 y.o. female being seen at the request of Beatrice Dickens MD for evaluation of hemorrhoids. Patient followed with Dr. Becerril in 2013 for internal hemorrhoids. She was banded at this point. Shestates that he had talked about surgery for some of the external hemorrhoid component, but she had not felt ready for that that time. Her most concerning symptoms are that they are annoying and she has hygiene issues. She almost always gets bleeding with bowel movements. She has minimal pain or discomfort. Prior colonoscopy: March [address] Velez, normal colonoscopy. In 2005, she had a tubular adenoma in the sigmoid colon. Family history: Mother with colon cancer in her early 80s, 1 brother and 3 sisters with polyps. No inflammatory bowel disease. Review of Symptoms: Gen: no fevers, chills, [...] Grandfather ??? Heart Disease Paternal Grandfather Current Outpatient Prescriptions Medication Sig Dispense Refill ??? ascorbic acid, vitamin C, (VITAMIN C) 500 mg tablet Take 500 mg by mouth daily. ??? biotin 1 mg capsule Take 1 Cap by mouth daily. ??? buPROPion (WELLBUTRIN XL) 300 mg XL tablet Take 300 mg by mouth daily. Reported on 01/06/2017 ??? cetirizine (ZYRTEC) 10 mg tablet Take 10 mg by mouth daily. ??? Cholecalciferol, Vitamin D3, 2,000 unit capsule Take by mouth. ??? Chromium 200 mcg tablet Take by mouth daily. ??? cyanocobalamin (VITAMIN B-12) 500 mcg tablet Take 500 mcg by mouth daily. ??? folic acid (FOLVITE) 1 mg tablet Take 1 mg by mouth daily. ??? HYDROcodone-acetaminophen (NORCO) 5-325 mg tablet Take 1-2 Tabs by mouth every 4 hours as needed for Pain. (Patient not taking: Reported on 01/06/2017) 20 Tab 0 ??? ibuprofen (MOTRIN) 200 mg tablet Take 600 mg by mouth as needed for Pain. Reported on 01/06/2017 ??? snxfca-noyfhmwv-hqcvlnd (ZENPEP) 10,000-34,000 -55,000 unit per capsule Take 1 Cap by mouth daily. ??? Magnesium Glycinate 100 mg tablet Take by mouth. ??? methylphenidate (RITALIN;METHYLIN) 10 mg tablet Take 10 mg by mouth 3 times daily. ??? niacin 50 mg tablet Take 50 mg by mouth at bedtime. ??? Antds-6-XAI-EPA-Fish Oil (FISH OIL) 1,000 mg (120 mg-180 mg) capsule Take by mouth. ??? PANTOTHENIC ACID ORAL Take by mouth. ??? polyethylene glycol (GOLYTELY) 236-22.74-6.74 gram suspension TAKE DIRECTED.. (Patient not taking: Reported on 01/06/2017) 1 Bottle 0 ??? propranolol (INDERAL) 40 mg tablet Take 10 mg by mouth as needed. ??? pyridoxine, vitamin B6, (VITAMIN B6) 50 mg tablet Take 50 mg by mouth daily. ??? riboflavin, vitamin B2, (B-2) 100 mg tablet tablet Take 100 mg by mouth daily. ??? selenium 100 mcg tablet Take 200 mcg by mouth daily. ??? thiamine (VITAMIN B1) 100 mg tablet Take 100 mg by mouth daily. ??? tocopheryl acetate (VITAMIN E) 100 unit capsule Take 400 Units by mouth daily. ??? Triamcinolone Acetonide (KENALOG) 0.025 % Lotion by topical (top) route 2 times daily. Reportedon 01/06/2017 ??? UNABLE TO FIND Med Name: Concentrated polyphenol blend No current facility-administered medications for this visit. Allergies Allergies Allergen Reactions ??? Sulfa (Sulfonamide Antibiotics) Hives ??? Gabapentin [place] Objective: Blood pressure 120/70, pulse 68, resp. rate 14, height 165.1 cm (65), weight 70.2 kg (154 lb 12.8 oz). Physical Exam: Gen: awake, alert, and oriented x 3, NAD Neck: soft, no thyromegaly, no carotid bruits, no cervical lymphadenopathy CV: RRR no M/R/G Pulm: CTA bilat, no wheezes or rhonchi Abd: soft, nontender, nondistended, +bowel sounds Ext: warm, well perfused,no edema Anoscopy Procedure Note I explained the procedure, as well as benefits of the procedure, alternative treatments, and consequences of no treatment to patient. Verbal consent for the procedure was obtained. A pre-procedure verification was conducted prior to the procedure. Final verification/timeout immediately prior to procedure has been conducted by the attending provider, including all members of the procedural team as appropriate to their involvement in the procedure. The patient's identity, procedure, and when applicable the: side/site, patient position, availability of special equipment or special requirements was verbally confirmed prior to the procedure. With a zipper ironer present the patient was placed in the left lateral decubitus position the buttockswere spread. The anoscope was inserted and the anal canal was inspected circumferentially. Findingswere Anus: Skin intact Circumferential external skin tags with right anterior that is excoriated and tender. Minimal internal hemorrhoids No masses palpated on KENIA Data Review: Assessment: Sarah Wiggins is a(n) 66 y.o. old female with circumferential external skin tags and right anterior flared external hemorrhoid that appears chronic in nature. Plan: Could not do banding as the hemorrhoid is external. It is likely causing the bleeding and mucous drainage. Discussed hemorrhoidectomy. Would try to avoid taking remainder of external skin tags that are not involved and flared as I could cause stricturing. Discussed risks and benefits including bleed, infection, stricture and incontinence. She has filledout paperwork, but will think about when would be best for her to undergo the procedure. Discussed expectations for post operative pain and swelling. Tish Zamora MD 01/06/2017 14:52 documented in this encounter Plan of Treatment Not on file documented as of this encounter Visit Diagnoses Diagnosis External hemorrhoids with complication- Primary External hemorrhoids with other complication documented in this encounter Historical Medications * This list may reflect changes made after this encounter. Medication Sig Dispensed Refills Start Date End Date methylphenidate (RITALIN;METHYLIN) 10 mg tablet Take 10 mg by mouth 3 times daily. Magnesium Glycinate 100 mg tablet Take 300 mg by mouth. Lbhta-9-GPB-EPA-Fish Oil (FISH OIL) 1,000 mg (120 mg-180 mg) capsule Take by mouth. Chromium 200 mcg tablet Take by mouth daily. folic acid (FOLVITE) 1 mg tablet Take 400 mcg by mouth daily. fsjvst-hoeegyqa-ohguybx (ZENPEP) 10,000-34,000 -55,000 unit per capsule Take 1 Cap by mouth daily. cyanocobalamin (VITAMIN B-12) 500 mcg tablet Take 500 mcg by mouth daily. tocopheryl acetate (VITAMIN E) 100 unit capsule Take 400 Units by mouth daily. ascorbic acid, vitamin C, (VITAMIN C) 500 mg tablet Take 500 mg by mouth daily. PANTOTHENIC ACID ORAL Take by mouth. 01/2017 biotin 1 mg capsule Take 1 Cap by mouth daily. 07/06/2017 niacin 50 mg tablet Take 50 mg by mouth at bedtime. 07/06/2017 UNABLE TO FIND Med Name: Concentrated polyphenol blend 07/06/2017 riboflavin, vitamin B2, (B-2) 100 mg tablet tablet Take 100 mg by mouth daily. 07/06/2017 thiamine (VITAMIN B1) 100 mg tablet Take 100 mg by mouth daily. 07/06/2017 selenium 100 mcg tablet Take 200 mcg by mouth daily. 07/06/2017 pyridoxine, vitamin B6, (VITAMIN B6) 50 mg tablet Take 50 mg by mouth daily. 07/06/2017 added in this encounter Care Teams Mid Level Developer Relationship Specialty Start Date End Date Beatrice Dickens MD [address] [place] [address] PCP - General 12/06/13 documented as of this encounter
--- OUTSIDE RECORDS SUMMARY | 2024-04-04 18:55 | XMS_ITS | Encounter Summary ---
Author Organization [facility] Address [address] [place] [address] Care Team Providers Care Safety And Security Officer Name Role Phone Unavailable Primary Care Provider Unavailabl e Encounter Details Date Type Department Care Team ([facility] st Contact Info) Description 07/03/2006 Results Only [facility] [address] [place] [address] Franko Cohen, DO [address] [facility] [address] [place], [place] [id number] Social History Tobacco Use Types Packs/Day Years Used Date Smoking Tobacco: Never Assessed Sex and Gender Information Value Date Recorded Sex Assigned at Not on file Gender Identity Not on file Sexual Orientation Not on file documented as of this encounter Plan of Treatment Not on file documented as of this encounter Procedures Procedure Name Priority Date/Time Associated Diagnosis Comments SURGICAL PATHOLOGY Routine 07/03/2006 0:00 EST documented in this encounter Results * SURGICAL PATHOLOGY (07/03/2006 0:00 EST) Pathology Report: SURGICAL PATHOLOGY REPORT Reports generated via electronic interface contain original data; however they are lacking the format of the original report. Caution should be taken when reading/interpreti ng unformatted reports. Name: ? HANKMARY TOMLINTH ? Accession #: ? [id number] ? : ? 1950 (Age: 55) ??F ? Collect Date: ? 07/03/2006 ? Location: ? [facility] ? Receive Date: ? 07/03/2006 ? Provider: FRANKO COHEN DO Copy to: CALIN PORTILLO MD ? Final Pathologic Diagnosis: ? Colon, 35 cm, polyp, biopsy: 1. ?Fragment of tubular adenoma. 2. ? No high grade dysplasia identified. Document reviewed and electronically signed by: DONALD POLLACK MD Report ??Date: 07/07/2006 20:17 By the signature above, the attending physician certifies that he/she has personally conducted a gross and/or microscopic examination of the described specimens and rendered or confirmed the above diagnosis. Specimen(s) Received: ? Polyp 35 cm Clinical History: ? Polyp, screening; F/H colon Ca Gross Description: ? Received in [place]' s fixative labelled [facility] and polyp 35 cm is a roth-pink 0.5 x 0.4 x 0.3 cm soft tissue fragment. ??The specimen is entirely submitted in one cassette. ??(Marybeth Paige)/[facility] End of Report TAYLOR SU 07/03/2006 07/03/2006 9:0 7 EST Franko Cohen DO PATHOLOGY ORDER ALBERTO TAYLOR SU [address] [place] [address] documented in this encounter Visit Diagnoses Not on filedocumented in this encounter
--- OUTSIDE RECORDS SUMMARY | 2024-04-04 18:55 | XMS_ITS | Encounter Summary ---
Author Organization [facility] Address [address] [place] [address] Care Team Providers Care Pulverizer Name Role Phone Beatrice Dickens MD Primary Care Provider [phone] Encounter Details Date Type Department Care Team (Latest Contact Info) Description 03/10/2014 Orders Only [facility] Gastroenterology - [address] [address] Israel Velez MD Special screening for malignant neoplasms, colon (Primary Dx) Social History Tobacco Use Types [...] Dispensed Refills Start Date End Da te polyethylene glycol (GOLYTELY) 236-22.74-6.74 gram suspensionIndications:Spec ial screening for malignant neoplasms, colon TAKE DIRECTED.. 1 Bottle 0 03/10/2014 07/09/2017 documented in this encounter Plan of Treatment Not on file documented as of this encounter Visit Diagnoses Diagnosis Special screening for malignant neoplasms, colon- Primary documented in this encounter Care Teams Pulverizer Relationship Specialty Start Date End Date Beatrice Dickens MD [address] [place] [address] [address] [place] [phone] PCP - General 12/06/13 documented as of this encounter
--- OUTSIDE RECORDS SUMMARY | 2024-04-04 18:55 | XMS_ITS | Encounter Summary ---
Author Organization [facility] Address [address] [place] [address] Care Team Providers Care Integrity Engineer Name Role Phone Beatrice Dickens MD Primary Care Provider [phone] Reason for Visit * Reason Comments Hemorrhoids banding Encounter Details Date Type Department Care Team ([facility] st Contact Info) Description 01/04/2014 14:30 EDT Office Visit [facility] General Surgery - [facility] [address] [place], [place] [id number] Jer Becerril MD [address] [place] [address] Internal hemorrhoids with other complication (Primary Dx) Social History Tobacco Use Types Packs/Day Years Used Date Smoking Tobacco: Never Smokeless Tobacco: Never Alcohol Use Standard Drinks/Week Comments Yes 0 (1 standard drink = 0.6 oz pur e alcohol) rare Sex and Gender Information Value Date Recorded Sex Assigned at Not on file Gender Identity Not on file Sexual Orientation Not on file documented as of this encounter Progress Notes * Jer Becerril - 01/04/2014 1808 EDT DIVISION OF GENERAL SURGERY PROGRESS / FOLLOWUP NOTE - 01/04/2014 SUBJECTIVE: Ms Wiggins comes in for her banding. She wishes me to be very aggressive and emphasizes that she would tolerate an increased pain to try and maximize efficacy and minimize the need for re-treatment. We had a raymond discussion about this. The risks nature of the procedure were reviewed in detail. OBJECTIVE: The left lateral and right anterior and right posterior bundles were all banded. The right anterior bundle is relatively low-lying, but she tolerated the banding acceptably well. I think she will have more pain on this basis than most patients. ASSESSMENT: Status post hemorrhoid banding. See in 6 to 8 weeks to assess efficacy. Jer Becerril MD, FACS 02 35 PM - Jer Becerril MD, FACS ln Dictation ID: [id number] cc: Beatrice Dickens MD, [address] [address] * Jer Becerril - 01/04/2014 1431 EDT This office note has been dictated. I explained the procedure, as well as [...] was verbally confirmed prior to the procedure. documented in this encounter Plan of Treatment Not on file documented as of this encounter Visit Diagnoses Diagnosis Internal hemorrhoids with other complication- Primary documented in this encounter Care Teams Integrity Engineer Relationship Specialty Start Date End Date Beatrice Dickens MD [address] [place] [address] [address] [place] [address] PCP - General 12/06/13 documented as of this encounter
--- OUTSIDE RECORDS SUMMARY | 2024-04-04 18:55 | XMS_ITS | Encounter Summary ---
Author Organization [facility] Address [address] [place] [address] Care Team Providers Care Building Trades Instructor Name Role Phone Beatrice Dickens MD Primary Care Provider [phone] Reason for Visit * Reason Comments Hemorrhoids * Consult (Routine) - Closed Specialty Diagnoses / Procedures Referred By Susan gan Referred To Contact General Surgery Diagnoses Hemorrhoids Beatrice Dickens MD [address] [place] [address] [address] [place] [address] Jer Becerril MD [address] [place] [address] Referral ID Status Reason Start Date Expiration Date Visits Re quested Visits Authorized [id number] Closed 1 1 Encounter Details Date Type Department Care Team (Late st Contact Info) Description 12/07/2013 15:00 EDT Office Visit [facility] General Surgery [facility] [address] [place] [address] Jre Becerril MD [address] [place] [address] Internal hemorrhoids with other complication [...] Sign Reading Time Taken Comments Blood Pressure 106/60 12/07/2013 1507 EDT Pulse 64 12/07/2013 1507 EDT Temperature - - Respiratory Rate - - Oxygen Saturation - - Inhaled Oxygen Concentration - - Weight 68 kg (150 lb) 12/07/2013 1507 EDT Height 165.1 cm (5' 5) 12/07/2013 1507 EDT Body Mass Index 24.96 12/07/2013 1507 EDT documented in this encounter Progress Notes * Jer Becerril - 12/07/20132151 EDT DIVISION OF GENERAL SURGERY NEW PATIENT EVALUATION - 12/07/2013 PROBLEM: Third-degree hemorrhoids. SUBJECTIVE: Ms Wiggins is a 63-year-old woman who was sent by Dr Beatrice Dickens owing to prolapsing, bleeding hemorrhoids. Ms Wiggins has had hemorrhoids that bleed dating back perhaps to childhood many years ago. Things have become progressively more problematic. She has prolapse and needs to reduce things digitally. In addition, there is bright red blood on the paper that drips in the bowl. It also can stain her underwear and create hygiene problems. There is considerable soreness. She has frequent colonoscopies. She has seen Dr Darryl Barr who discussed hemorrhoidectomy with her, owing to the persistence and severity of symptoms. She had a very difficult time after recovery from anal fissure surgery. As such, she has not wished to have this kind of surgery. She comes to discuss alternatives. MEDICAL HISTORY: Remarkable for anxiety and depression. SURGICAL HISTORY: Remarkable for the fissure surgery and 3 C-sections. Medications and allergies: Reviewed and updated in [facility]. SOCIAL HISTORY: She rarely drinks alcohol. She does not smoke. FAMILY HISTORY: There is a family history of colon cancer in her mother. She has regular colonoscopies. REVIEW OF SYSTEMS: She is quite active. There is no chest pain or shortness of breath. There is no tendency towards easy bleeding. There is no major cardiopulmonary morbidity. She works as a school nurse. The remaining review of systems is documented in the chart. There is also a history of joint pain, muscle aches, back pain and neck pain. OBJECTIVE: She is well appearing, although anxious. On anal inspection, there are a few small tags.The dominant finding is prolapsing, friable tissue from the right anterior position. I see no fissures. Digital exam is otherwise normal. ASSESSMENT: 1. Third-degree hemorrhoids that have been refractory to dietary measures. 2. Family history of colon cancer. She gets regular colonoscopies for this. I do not think she needs any more invasive workup. PLAN: 1. Anoscopy. 2. We talked at length about the options. I have told her that I do think she would potentially benefit from hemorrhoid banding. The only issue is that the prolapsing tissue from the right anterior position is quite low. I am not so sure how well she will tolerate banding. As such, we talked about potentially excising this area in conjunction with banding. She will make a date to do this at her convenience. PROCEDURE NOTE: The anoscope was inserted. The left lateral and right posterior bundles are readilyprolapsed. She will make a date at her convenience. Jer Becerril MD, FACS 03 31 PM - Jer Becerril MD, FACS Dictation ID: [id number] cc: Beatrice Dickens MD, [place] [phone] * Jer Becerril - 12/07/2013 1509 EDT This office note has been dictated. documented in this encounter Plan of Treatment Not on file documented as of this encounter Visit Diagnoses Diagnosis Internal hemorrhoids with other complication- Primary documented in this encounter Historical Medications * This list may reflect changes made after this encounter. Medication Sig Dispensed Refills Start Date End Date propranolol (INDERAL) 40 mg tablet Take 10 mg by mouth as needed. added in this encounter Care Teams Building Trades Instructor Relationship Specialty Start Date End Date Beatrice Dickens MD [address] [place] [address] [address] [place] [address] PCP - General 12/06/13 documented as of this encounter
--- OUTSIDE RECORDS SUMMARY | 2024-04-04 18:55 | XMS_ITS | Encounter Summary ---
Author Organization [facility] Address [address] [place] [address] Care Team Providers Care Floral Merchandiser Name Role Phone Beatrice Dickens MD Primary Care Provider [phone] Encounter Details Date Type Department Care Team (Latest Contact Info) Description 04/05/2014 12:10 EDT - 04/05/2014 23:59 EDT Hospital Encounter [facility] Endoscopy - [facility] [address] [place], [place] [phone] Israel Velez MD Discharge Disposition: Home or [...] on file documented as of this encounter Medications at [...] Code Departure Means Destination Home or Self Fdc documented in this encounter Plan of Treatment Not on file documented as of this encounter Visit Diagnoses Not on filedocumented in this encounter Care Teams Floral Merchandiser Relationship Specialty Start Date End Date Beatrice Dickens MD [address] [place] [phone] PCP - General 12/06/13 documented as of this encounter
--- OUTSIDE RECORDS SUMMARY | 2024-04-04 18:55 | XMS_ITS | Encounter Summary ---
Author Organization [facility] Address [address] [place] [address] Care Team Providers Care Switchboard Operator Receptionist Name Role Phone Unavailable Primary Care Provider Unavailabl e Encounter Details Date Type Department Care Team ([facility] st Contact Info) Description 02/10/[address] [facility] Laboratory Services - [facility] ([facility]) [address], [place] [address] Beatrice Dickens MD [address] [place] [id number] Social History Tobacco Use Types Packs/Day Years [...] Diagnosis Comments PAP TEST- RESULT ONLY Routine 02/10/2011 0:00 EDT documented in this encounter Results * PAP TEST- RESULT ONLY (02/10/2011 0:00 EDT) Pathology Report: CYTOPATHOLOGY REPORT ? Reports generated via electronic interface contain original data; ? however they are lacking the format of the original report. ? Caution should be taken when reading/interpreti ng unformatted reports. ? Name: ? SARAH CHAPMAN ? Accession #: ? [id number] ? : ? 1950 (Age: 60) ??F ?Collect Date: ? 02/10/2011 ? Location: ? [facility] ? Receive Date: ? 02/12/2011 ? Provider: BEATRICE M DOBBERTIN MD ? Copy to: ? Final Report ? SPECIMEN ADEQUACY ? Satisfactory for Evaluation ? - assessment of transformation zone component not applicable ( e.g. atrophy, ? vaginal sample, hysterectomy) ? - scant squamous epithelial component secondary to excessive inflammation ? GENERAL CATEGORIZATION ? Negative for Intraepithelial Lesion or Malignancy ? Menstural/Pregnanc y Status: ??Post Menopausal ? Specimen/Source: ??Pap Test, Endocervix, ThinPrep Imaging System with manual ? evaluation ? Document reviewed and electronically signed by: ? Jordy Farooqler, [place](ASCP) ? Report ??Date: 02/19/2011 09:44 ? HPV with Pap Test ? Date Ordered: ? 02/19/2011 ? Status: ?? Signed Out ?Date Complete: ? 02/24/2011 ? By: ??System Interface ? Date Reported: ? 02/24/2011 ? Interpretation ? RESULT: Negative for HPV types 16, 18, 31, 33, 35, 39, 45, 51, 52, ? 56, 58, 59, and 68. ? Comments ? Document reviewed and electronically signed by: ? System Interface ? Report date: 02/24/2011 ? By the signature above, the attending physician certifies that he/she has ? personally conducted a gross and/or microscopic examination of the described ? specimens and rendered or confirmed the above diagnosis. ? End of Report ? [facility] 02/10/2011 02/12/2011 Beatrice Dickens MD PATHOLOGY ORDERABLE S Performing Organization Address City/State/[facility] Co de Phone Number [facility] [address] [place] [address] documented in this encounter Visit Diagnoses Not on filedocumented in this encounter
--- OUTSIDE RECORDS SUMMARY | 2024-04-04 18:55 | XMS_ITS | Encounter Summary ---
Author Organization [facility] Address [address] [place] [address] Care Team Providers Care Ornamental Ironworking Supervisor Name Role Phone Unavailable Primary Care Provider Unavailabl e Encounter Details Date Type Department Care Team ([facility] Contact Info) Description 10/19/2007 Results Only [facility] - [facility] [address] [place] [address] Beatrice Dickens MD [address] [place] [address] [address] [place] [address] Social History Tobacco Use Types Packs/Day Years Used Date Smoking Tobacco: Never Assessed Sex and Gender Information Value Date Recorded Sex Assigned at Not on file Gender Identity Not on file Sexual Orientation Not on file documented as of this encounter Plan of Treatment Not on file documented as of this encounter Procedures Procedure Name Priority Date/Time Associated Diagnosis Comments CYTOPATHOLOGY Routine 10/19/2007 0:00 EST documented in this encounter Results * CYTOPATHOLOGY (10/19/2007 0:00 EST) Pathology Report: CYTOPATHOLOGY REPORT Reports generated via electronic interface contain original data; however they are lacking the format of the original report. Caution should be taken when reading/interpreti ng unformatted reports. Name: ? SARAH CHAPMAN ? Accession #: ? [id number] : ? 1950 (Age: 57) ??F ?Collect Date: ? 10/19/2007 Location: ? [facility] ? Receive Date: ? 10/20/2007 Provider: ?BEATRICE DICKENS MD Copy to: ? Specimen/Source: ?ThinPrep Pap Test, Endocervix, processed on [email or web address] ThinPrep Imaging System, with manual evaluation Last Menstrual Period: ? Menstrual/Pregnanc y Status: ? Post Menopausal Other: ? HPVA - HPV testing requested if ASC-US on the current ThinPrep Pap test. ? SPECIMEN ADEQUACY ? Satisfactory for Evaluation - assessment of transformation zone component not applicable ( e.g. atrophy, vaginal sample, hysterectomy) - scant squamous epithelial component secondary to excessive inflammation GENERAL CATEGORIZATION ? Negative for Intraepithelial Lesion or Malignancy ? Document reviewed and electronically signed by: ? KARAN Melo(ASCP) ? Report Date: ??10/25/2007 15:09 End of Report [facility] 10/19/2007 10/20/2007 Beatrice Dcikens MD PATHOLOGY ORDERABLE S [facility] [address] [place] [address] documented in this encounter Visit Diagnoses Not on filedocumented in this encounter
--- OUTSIDE RECORDS SUMMARY | 2024-04-04 18:55 | XMS_ITS | Encounter Summary ---
Author Organization [facility] Address [address] [place] [address] Care Team Providers Care Hide Paster Name Role Phone Unavailable Primary Care Provider Unavailabl e Encounter Details Date Type Department Care Team ([facility] st Contact Info) Description 12/02/2013 Abstract [facility]ology - [facility] [address] [place] [address] Jer Becerril MD [address] [place] [address] Social History Tobacco Use Types Packs/Day Years [...]
--- OUTSIDE RECORDS SUMMARY | 2024-04-04 18:55 | XMS_ITS | Encounter Summary ---
Author Organization [facility] Address [address] [place] [address] Care Team Providers Care Manager Safe Name Role Phone Unavailable Primary Care Provider Unavailabl e Encounter Details Date Type Department Care Team ([facility] st Contact Info) Description 12/02/2013 Abstract [facility] General Surgery - [facility] [address] [place], [place] [id number] Jer Becerril MD [address] [place] [address] Social History Tobacco Use Types Packs/Day Years Used Date Smoking Tobacco: Never Assessed Sex and Gender Information Value Date Recorded Sex Assigned at Not on file Gender Identity Not on file Sexual Orientation Not on file documented as of this encounter Plan of Treatment Not on file documented as of this encounter Visit Diagnoses Not on filedocumented in this encounter Historical Medications * This list may reflect changes made after this encounter. Medication Sig Dispensed Refills Start Date End Date Triamcinolone Acetonide (KENALOG) 0.025 % Lotion by topical (top) route 2 times daily. Reported on 01/06/2017 ibuprofen (MOTRIN) 200 mg tablet Take 200 mg by mouth as needed for Pain. Reported on 01/06/2017 Cholecalciferol, Vitamin D3, 2,000 unit capsule Take 10,000 mg by mouth. cetirizine (ZYRTEC) 10 mg tablet Take 10 mg by mouth daily. buPROPion (WELLBUTRIN XL) 300 mg XL tablet Take 300 mg by mouth daily. Reported on 01/06/2017 07/06/2017 added in this encounter
== END ==
PROVIDERS: PCP Family Medicine; Visit Provider Family Medicine
DX: M54.50 Low back pain, unspecified (principal); M25.551 Pain in right hip; M25.552 Pain in left hip; M51.37 Other intervertebral disc degeneration, lumbosacral region
CPT/HCPCS: 73521; 72110

== ENCOUNTER 2024-04-04 19:11 | Outpatient (CLI) | payer MEDICARE, BC, SELFPAY ==
[2024-04-04 14:29] LABS: ALT 36 U/L (14-59); AST 25 U/L (15-37); Albumin 4.3 g/dL (3.4-5.0); Alkaline Phosphatase 86 U/L (46-116); Anion Gap 12.3 mmol/L (3-11); BUN 20 mg/dL (7-18); Bilirubin, Total 0.34 mg/dL (0.2-1.0); CO2 25.7 mmol/L (21.0-32.0); Calcium 9.5 mg/dL (8.5-10.1); Chloride 104 mmol/L (98-107); Estimated GFR 59.49 (mL/min/1.73m2); Glucose 96 mg/dL (74-106); Sodium 142 mmol/L (136-145); TSH (W/Ref FT4) 1.24 uIU/mL (0.36-3.74); Total Protein 8.1 g/dL (6.4-8.2)
[2024-04-05 18:18] LABS: Hemoglobin A1C 5.4 % (<5.7)
== END 2024-04-04 19:12 | disposition home or self-care (01) ==
LOC: LBO 19:12
PROVIDERS: PCP Family Medicine; Visit Provider Family Medicine
DX: E11.9 Type 2 diabetes mellitus without complications (principal); R25.2 Cramp and spasm; E03.9 Hypothyroidism, unspecified; I10 Essential (primary) hypertension
CPT/HCPCS: 36415; 73521; 80053; 72110; 83036; 84443

== ENCOUNTER → 2024-04-06 01:27 | Outpatient (CLI) | payer MEDICARE, BC, SELFPAY ==
--- NOTE | 2024-04-06 07:45 | DI.MAMMO_ITS ---
Exam(s) MAMMO SCREENING EXAM: MAMMO SCREENING CLINICAL HISTORY: screening,z12.39. TECHNIQUE: Bilateral full field digital CC and MLO mammographic images were obtained with 3D tomosyn thesis and utilizing computer aided detection (CAD). COMPARISON: Prior mammograms were reviewed. FINDINGS: In the right breast there is a skin mole located inferiorly, more evident than previous. No new sign ificant right breast lesions. In the left breast there are no new significant findings. There are no new spiculated masses nor malignant appearing microcalcification groups. There is no significant architectural distortion nor skin thickening-retraction. IMPRESSION: Benign findings. No radiographic evidence of malignancy. BI-RADS Category 2 - Benign Findings Breast Density - Category C - Heterogeneously dense Breast density Category C or D implies that the patient has dense breast tissue. Dense breast tissue can make it harder to find cancer on a mammogram. Dense breast tissue is also associated with an incr eased risk of breast cancer. This information about the result of the mammogram report was provided to the patient to raise their awareness. Use this report when you speak with the patient about their risks for breast cancer, which includes their family history. At that time, you may recommend additional screening tests (Ultrasoun d or MRI) as these tests may add significant information. A negative radiographic report should not delay biopsy if a dominant or clinically suspicious mass is present. Up to ten percent of cancers are not identified on mammography. A negative report may reinforce clinical impression. Adenosis and dense breasts may obscure an underlying neoplasm. False positive reports average 6 to 10%. Patient will receive a letter notifying them of these results.
== END ==
PROVIDERS: PCP Family Medicine; Visit Provider Family Medicine
DX: Z12.39 Encounter for other screening for malignant neoplasm of breast (principal); Z12.31 Encounter for screening mammogram for malignant neoplasm of breast; R92.333 Mammographic heterogeneous density, bilateral breasts
CPT/HCPCS: 77063; 77067

== ENCOUNTER → 2024-05-30 12:54 | Outpatient (BNVA) | payer MEDICARE, BC, SELFPAY | PROVIDERS: PCP Family Medicine; Referring Provider Family Medicine; Visit Provider Surgery ==

== ENCOUNTER 2024-05-30 14:43 | Outpatient (CLI) | payer MEDICARE, BC, SELFPAY ==
[2024-05-30 14:38] LABS: Abs Immature Grans 0.03 10^3/uL (0.0-0.06); Absolute Basophil Count 0.03 10^3/uL (0.0-0.2); Absolute Eosinophil Count 0.09 10^3/uL (0.0-0.7); Absolute Monocyte Count 0.81 10^3/uL (0.1-0.8); Basophils % 0.5 %; Eosinophils % 1.4 %; HCT 40.3 % (36.0-46.0); HGB 13.3 g/dL (11.2-15.7); Immature Grans % 0.5 %; MCH 29.9 pg (27.0-33.0); MCV 91 fL (80-95); MPV 10.3 fL (8.0-11.0); Monocytes % 12.2 %; Neutrophils % 37.4 %; Platelet Count 205 10^3/uL (130-400); RBC 4.45 10^6/uL (3.93-5.22); RDW 12.6 % (11.7-14.6); RDW-SD 41.6 fL; WBC 6.66 10^3/uL (4.4-10.8)
== END 2024-05-30 14:44 | disposition home or self-care (01) ==
LOC: LBO 14:45
PROVIDERS: PCP Family Medicine; Visit Provider Surgery
DX: R07.9 Chest pain, unspecified (principal); E78.5 Hyperlipidemia, unspecified; R42 Dizziness and giddiness; K57.30 Diverticulosis of large intestine without perforation or abscess without bleeding; Z86.010 Personal history of colon polyps; N39.0 Urinary tract infection, site not specified; Z80.0 Family history of malignant neoplasm of digestive organs; D49.2 Neoplasm of unspecified behavior of bone, soft tissue, and skin
CPT/HCPCS: 36415; 85025

== ENCOUNTER 2024-06-06 06:06 | Day surgery (SDC) | payer MEDICARE, BC, SELFPAY ==
--- NOTE | 2024-06-05 11:01 | PDOC.DSDIS_ITS ---
Date of service: 06/06/24 Time of Service: 08:08 Discharge Plan Disposition Patient Disposition: Home Condition: Good Discharge Details Reason For Visit: screening colonoscopy Attending Provider: Av Ruffin Primary Care Provider: Beatrice Dickens Home Meds and New Rx's Prescriptions: Continued propranolol 10 mg tablet 10 mg PO BID PRN Blink Gel Tears OU DAILY ciprofloxacin HCl 250 mg tablet 250 mg PO DAILY PRN (Reason: UTI) Qty: 90 1RF Rx Instructions: use after intercourse albuterol sulfate [Ventolin HFA] 90 mcg/actuation HFA aerosol inhaler 2 puff IH QID PRN (Reason: shortness of breath or wheezing) Qty: 18 6RF Rx Instructions: 3 canisters nystatin 100,000 unit/gram powder 1 applic topical BID Qty: 60 4RF magnesium citrate 100 mg tablet 400 mg PO DAILY docusate sodium [Colace] 100 mg capsule 100 mg PO DAILY PRN (DME) POCKET CHAMBER Spacer See Rx Instructions .ROUTE .MEDSUPPLY Qty: 1 0RF Rx Instructions: As directed. dispense generic triamcinolone acetonide 0.1 % ointment 1 applic Topical BID PRN (Reason: rash) Qty: 80 4RF Rx Instructions: dispense cream if available estradiol [Yuvafem] 10 mcg tablet 10 mcg VG .three times weekly Qty: 36 4RF Discontinued polyethylene glycol 3350 17 gram/dose powder 238 g PO ONCE Qty: 238 0RF Rx Instructions: take per colonoscopy instructions bisacodyl [Dulcolax (bisacodyl)] 5 mg tablet,delayed release (DR/EC) 5 mg PO ONCE Qty: 4 0RF Rx Instructions: take per colonoscopy instructions Discharge Instructions Instructions: Colon polyps, Diverticulosis Additional Instructions: Sarah, it was a pleasure meeting you today, and I hope you are comfortable during the procedure. Everything went very smoothly. Your prep was excellent and we could see everything just fine. I did find to remove a total of 3 polyps. 2 of these were extremely small, and might not even be true polyps. Regardless, I will send them off for testing just to be certain. The other polyp was medium in size, and this will also be tested. Once we know the nature of these polyps, the office will be in touch with recommendations for your next colonoscopy. Incidentally, you also have a fair amount of diverticulosis. Diverticula are weak spots in the muscular part of the colon wall. Basic approaches to them include maintenance of a high-fiber diet that is well- balanced, adequate hydration, and avoidance of symptoms of constipation. Have attached some general information here diverticulosis as well as polyps. If you have any questions at all, please do not hesitate to ask. 1. If tolerated, consume a soft, low fiber diet for 1-2 days. 2. Do not drive, drink alcohol, operate machinery, make critical decisions, or do activities that require coordination or balance for 24 hours. 3. Because air was put into your colon during the procedure, expelling air from your rectum (passing gas or farting) is normal. 4. You may not have a bowel movement for 1-3 days because of the colonoscopy prep. This is normal. 5. Go directly to the emergency room if you notice any of the following: Develop chills (warm to touch), or if you have a thermometer and your temperature is above 101 Difficulty breathing or difficultly swallowing Persistent vomiting Severe abdominal pain, other than gas cramps Severe chest pain Black, tarry stools Any bleeding ? exceeding one tablespoon 6. Call your physician if the site where your intravenous was started becomes red, swollen, painful, and warm to touch. 7. Your physician has reviewed your pre-procedure medications. Please continue to take those medications as previously ordered. You will be given specific information/education regarding any changes to your medications before leaving. Activity:: Activity as Tolerated Diet:: As Tolerated Discharge Orders Discharge Orders: Discharge Order (Routine); Ordered 06/05/24 Ordered By: Av Ruffin DS: Diagnosis Discharge Diagnosis (1) Encounter for screening colonoscopy: Status: Acute Asessment and Plan: Follow-up on polypectomy results
--- NOTE | 2024-06-05 11:03 | W.COLOREPORT ---
Date of service: 06/06/24 Time of Service: 08:10 Colonoscopy Report Date of procedure: 06/06/24 Pre-op diagnosis general: screening colonoscopy Post-op diagnosis procedure note: other (Diverticulosis, colorectal polyps) Procedure: colonoscopy with polypectomy Surgeon: Av Ruffin Anesthesia Type: General:No Airway Estimated blood loss (mL): 5 Pathology: other (0.5 cm flat polyp at 75 cm from the anus, less than 0.25 cm polyp at 25 cm, less than 0.25 cm polyp in the rectum) Complications: None Disposition: same day Indications: Sarah is a 73 year old woman with a family history of colon cancer. She needs her enxt screening colonoscopy Prep: Miralax/Dulcolax Procedure Start Time: 07:37 Procedure End Time: 08:01 Retraction Time: 13 Findings: Pandiverticulosis, 0.5 cm flat polyp at 75 cm from the anus, less than 0.25 cm polyp at 25 cm, less than 0.25 cm polyp in the rectum Procedure Description: After the induction of anesthesia, and with the patient in left lateral decubitus position, I began by performing an external anorectal exam.? Perineum and skin were normal, as was the anal verge.? There is an perianal skin tags that seem consistent with old external hemorrhoid disease.? Next, I performed a digital rectal exam.? I did not appreciate any abnormal findings.? Next, I advanced a colonoscope into the rectal vault.? I performed retroflexion.? There are some internal hemorrhoids.? Using insufflation, I then advanced the colonoscope beyond the rectal folds and into the sigmoid colon before advancing towards the cecum.? The quality of the prep was excellent.? There is diverticulosis involving all segments of the colon. Heaviest concentration is in the sigmoid. the scope was noted to be in the cecum by identification of the ileocecal valve and appendiceal orifice.? I then began withdrawing the colonoscope using repeated irrigation as necessary for full evaluation of the colonic mucosa. Around 75 cm from the anal verge I identified a 0.5 cm polyp. ?It appeared flat in character. ?I was able to remove this with a cold snare polypectomy. ?I examined the site, and there was minimal bleeding. ?Once this was completed, I continued to withdraw the scope and examine the remainder of the colonic mucosa. I found another polyp at 25 cm from the anus, and 1 in the rectum. Each of these polyps was less than 0.25 cm. These were both removed with cold forceps without any issues. ?Once the scope was withdrawn to the level of the rectum, great care was taken to examine portions of the rectal folds.? Finally, the scope was withdrawn and the patient was brought to the same-day surgery recovery unit as the anesthetic wore off. ?The findings and instructions were shared with the patient prior to discharge. [place] Bowel Prep [place] Bowel Prep Right Colon: 3 Left Colon: 3 Transverse Colon: 3 Total Score: 9
[2024-06-06 06:14] VITALS: BP 146/70; PULSE 73; RESP 16; TEMP 36.4; O2SAT 97
[2024-06-06] MEDS: Lactated Ringers 1,000 ML 80 ML IV (06:40)
[2024-06-06 07:22] VITALS: BMI 28.7
--- NOTE | 2024-06-06 07:22 | ANES.PREOP_ITS ---
General Info Date of Service Date Performed: 06/06/24 Height: 5 ft 4 in Weight: 75.9 kg Body Mass Index (BMI): 28.7 Surgical Procedure: Operation Date: 06/06/24 07:35 Proposed Procedure Side Surgeon yoni Ruffin MD Meds Allergies and Home Medications Allergies Allergy/AdvReac Type Severity Reaction Status Date / Time escitalopram (From Lexapro) Allergy Intermediate Rash Verified 06/06/24 06:25 Sulfa (Sulfonamide Allergy Intermediate HIVES Verified 06/06/24 06:25 Antibiotics) gabapentin AdvReac Mild LA LA Verified 06/06/24 06:25 LAND Home Medication ?Medication ?Instructions ?Recorded inhalational spacing device #1 ea 03/19/20 (POCKET CHAMBER spacer) Blink Gel Tears OU DAILY 05/21/21 propranolol 10 mg tablet 10 mg PO BID PRN 05/21/21 triamcinolone acetonide 0.1 % 1 applic topical BID PRN rash #80 04/15/22 topical ointment grams albuterol sulfate 90 mcg/actuation 2 puff inhalation QID PRN 03/02/23 aerosol inhaler (Ventolin HFA) shortness of breath or wheezing #18 grams ciprofloxacin HCl 250 mg tablet 250 mg PO DAILY PRN UTI #90 tabs 03/02/23 nystatin 100,000 unit/gram topical 1 applic topical BID #60 grams 04/04/24 powder estradiol 10 mcg vaginal tablet 10 mcg vaginal .three times weekly 04/06/24 (Yuvafem) #36 tabs docusate sodium 100 mg capsule 100 mg PO DAILY PRN 05/30/24 (Colace) magnesium citrate 100 mg tablet 400 mg PO DAILY 05/30/24 Current Visit Medications: Current Medications Generic Name Dose Route Start Last Admin Trade Name Freq PRN Reason Stop Dose Admin Hyoscyamine Sulfate 0.125 mg 06/05/24 11:05 Hyoscyamine 0.125 Mg Sl/Oral/Chew SL 07/05/24 11:04 DIRECTED PRN Ringer's Solution 1,000 mls @ 80 mls/hr 06/06/24 06:00 06/06/24 06:40 IV 07/03/24 23:59 80 mls/hr INFUSION ROMMEL Administration IV Miscellaneous Supplies 1 each 06/06/24 06:00 Iv Access IV 07/03/24 23:59 DIRECTED ROMMEL Sodium Chloride 0 ml 06/06/24 06:00 Normal Saline Flush 10 Ml Syr IV 07/03/24 23:59 PRN PRN Sodium Chloride 0 ml 06/06/24 06:00 Normal Saline 10 Ml Vial IJ 07/03/24 23:59 DIRECTED PRN Sterile Water 0 ml 06/06/24 06:00 Water,Injection,Sterile 10 Ml Vial IJ 07/03/24 23:59 DIRECTED PRN PFSH Active Problems Active Problems: Problem Status Onset Code Encounter for screening colonoscopy Acute Z12.11 Leg cramps Acute R25.2 Hip pain, bilateral Acute M25.551, M25.552 History of COVID-19 Acute Z86.16 SOB (shortness of breath) Acute R06.02 Fatigue Acute R53.83 Osteopenia Acute M85.80 Frequent UTI Acute N39.0 Diverticulosis Acute K57.90 Vertigo Acute R42 Plantar wart of left foot Acute 08/13/15 B07.0 Hyperlipidemia Acute E78.5 Diverticulosis of large intestine Acute 04/05/14 K57.30 Chronic right shoulder pain Acute 12/03/15 M25.511, G89.29 Chest pain Acute R07.9 Bilateral edema of lower extremity Acute 12/02/16 R60.0 Hx of colonic polyps Acute Z86.010 Family history of colon cancer Acute Z80.0 Atrophic vaginitis Chronic 11/01/13 N95.2 Cervical spondylosis Chronic 08/12/11 M47.812 Chronic fatigue syndrome Chronic 02/03/13 R53.82 Depressive disorder Chronic 02/03/13 F32.9 Disorder of vitamin B12 Chronic 11/16/12 E53.8 Knee pain Chronic 07/18/14 M25.569 Low back pain Chronic 10/19/07 M54.5 Neoplasm of unspecified nature of bone, soft tissue, 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 of benign positional vertigo Chest pain 08/31/04 neg ETT Chronic sinusitis 10/19/07 she feels it is diet related Abdominal pain 11/08/13 Diverticulosis of colon 04/05/14 [facility]-normal Plantar wart of left foot 08/13/15 History of snoring 08/13/15 Chronic right shoulder pain 12/03/15 Tear of right rotator cuff 03/19/16 unspecified tear extent, MRI scheduled Bilateral edema of lower extremity 12/02/16 Attention deficit disorder (09/24/17) Face lesion (08/13/15) right nondenominational, 8mm, uniform color Hemorrhoids, complicated (02/07/14) s/p banding Polyp of colon (07/30/05) tubular adenoma Sleep apnea, central (01/09/16) [facility] sleep study 01/03/16 Central sleep apnea Chronic fatigue Surgical History Surgical History Hx of dilation and curettage History of section Status post anal fissurectomy Status post hemorrhoidectomy H/O section 1985,1987,1993 S/P anal fissurectomy 08/31/81 S/P hemorrhoidectomy 12/29/13 banding section 1985,1987,1993 Hemorrhoidectomy 07/08/17 Hemorrhoidal Banding (~12/2013) FISSURE REPAIR (~1981) Tobacco Smoking/Tobacco Use Status: Never Passive smoking exposure: No Second hand exposure: Yes (as a child) Alcohol Alcohol Intake: current Alcohol intake frequency: a few times a month Alcohol type: beer Substance Use Substance use: Never Substance use type: does not use Vital Signs and Lab Results Vital Signs Most Recent Vital Signs in EMR: Most Recent Vital Signs Temp Pulse Resp BP Pulse Ox 36.4 C L 73 16 146/70 H 97 06/06/24 06:14 06/06/24 06:14 06/06/24 06:14 06/06/24 06:14 06/06/24 06:14 Lab Results Blood Type / Crossmatch: No Data to Display Complete Blood Count: White Blood Count 6.66 10^3/uL (4.4-10.8) 05/30/24 14:08 Red Blood Count 4.45 10^6/uL (3.93-5.22) 05/30/24 14:08 Hemoglobin 13.3 g/dL (11.2-15.7) 05/30/24 14:08 Hematocrit 40.3 % (36.0-46.0) 05/30/24 14:08 Platelet Count 205 10^3/uL (130-400) 05/30/24 14:08 Complete Metabolic Panel: No Data to Display Liver Function Panel: No Data to Display Coagulation Panel: No Data to Display Cardiac Panel: No Data to Display Arterial Blood Gas: No Data to Display Venous Blood Gas: No Data to Display Pancreas Panel: No Data to Display Thyroid Panel: No Data to Display Infectious Disease: No Data to Display Blood Cultures: No Data to Display Toxicology Panel: No Data to Display Anesthesia Assessment and Plan Anesthesia History Personal History: No History of Anesthesia Complications Family History: No Family History of Anesthesia Complications Exercise Tolerance Exercise Tolerance: Metabolic Equivalents>4 Pertinent Negatives Pertinent Negatives: No Symptoms of GERD Cardiac & Pulmonary Exam Cardiac Exam: Normal S1/S2 Heart Sounds Pulmonary Exam: Clear Bilateral Breath Sounds Implantable Cardiac Device Does patient have a Pacemaker or an ICD?: No Airway Exam Known Difficult Airway: No Mallampati Class: 2 Mouth Opening: Normal (> 3cm) Thyromental Distance: Greater than 3 cm Neck Range of Motion: Full ROM Neck Circumference: Normal Teeth Condition: Normal Dentition ASA Classification ASA Score: ASA 2 Emergency Case?: No NPO Status NPO Status: NPO Clears >2 hours, Solids >8 hours Anesthesia Plan Resuscitation Status: Full Code Anesthesia Technique: General Anesthesia Airway Planned: Natural Airway Monitors Used: Standard Monitors
--- NOTE | 2024-06-06 07:54 | BOWEL_PTH ---
PATIENT: Sarah Wiggins LOC: [facility] U#:[id number] AGE/SX: 73/F ROOM: RE06/06/[address]: Av Ruffin MD : 1950 BED: DIS: 06/06/2024 SPEC #: [id number] RECD: 06/06/24 12:49 STATUS: MARIAM REMelanie #: [id number] SEBAS: 06/06/24 07:[address]: Av Ruffin DEPT: Surgical Specimen RECD BY: Val Garvin ENTERED: 06/06/24 12:52 SP TYPE: Bowel OTHR DR: Beatrice Dickens MD, DC Tissues: 1 - BIOPSY BOWEL 2 - BIOPSY BOWEL 3 - BIOPSY BOWEL Procedures: GROSS AND MICRO LEVEL 4 Comments: [id number]
[2024-06-06 08:06] VITALS: BP 109/58; PULSE 80; RESP 18; TEMP 36.3; O2SAT 93
--- NOTE | 2024-06-06 08:14 | W.ANESPOSTOP ---
Postoperative Evaluation Date, Time and Location Date Performed: 06/06/24 Time Performed: 08:14 Patient Location: Day Surgery Unit Vital Signs Most Recent Imported Vital Signs: Most Recent Vital Signs Temp Pulse Resp BP Pulse Ox 36.4 C L 73 16 146/70 H 97 06/06/24 06:14 06/06/24 06:14 06/06/24 06:14 06/06/24 06:14 06/06/24 06:14 Pain Score Most Recent Pain Score: Most Recent Pain Score Pain Level 0 06/06/24 06:14 Assessment Mental Status: Awake (Alert & Oriented to Patient Baseline) Airway and Respiratory Function: Patent airway with normal (patient baseline) respiratory exam Cardiovascular Function: Hemodynamically Stable Hydration Status: Adequately Hydrated Nausea & Vomiting: No Nausea or Vomiting Pain: Pt. Denies Any Pain Peripheral Nerve Block: Patient did not receive a nerve block
[2024-06-06 08:30] VITALS: BP 112/75; PULSE 80; RESP 16; TEMP 36.2; O2SAT 96
== END 2024-06-06 08:52 | disposition home or self-care (01) ==
LOC: SUR 06:06
PROVIDERS: PCP Family Medicine; Visit Provider Surgery
PROC: 0DJD8ZZ Inspection of Lower Intestinal Tract, Via Natural or Artificial Opening Endoscopic (ICD-10-PCS; CPT 45378; principal; 2024-06-06 07:30)
DX: Z12.11 Encounter for screening for malignant neoplasm of colon (principal); D12.4 Benign neoplasm of descending colon; Z80.0 Family history of malignant neoplasm of digestive organs; K57.30 Diverticulosis of large intestine without perforation or abscess without bleeding; K64.8 Other hemorrhoids
CPT/HCPCS: 45385; 45380; 88305; J2003; J2704

== ENCOUNTER → 2024-06-16 13:20 | Outpatient (BNVA) | payer MEDICARE, BC, SELFPAY | PROVIDERS: PCP Family Medicine; Referring Provider Family Medicine; Visit Provider Physician Assistant | DX: M70.61 Trochanteric bursitis, right hip (principal); M70.62 Trochanteric bursitis, left hip | CPT/HCPCS: 99213 ==

== ENCOUNTER 2025-04-06 10:22 | Outpatient (CLI) | payer MEDICARE, BC, SELFPAY ==
--- NOTE | 2025-04-06 08:59 | DI.RAD_ITS ---
Exam(s) XR HIP RT COMPLETE AP PELVIS EXAM: XR HIP RT COMPLETE AP PELVIS CLINICAL HISTORY: right hip pain with movement, M25.559. TECHNIQUE: 2D digital imaging was performed of the right hip. Two images were obtained. AP pelvis and lateral right hip views were obtained. COMPARISON: CR XR HIP PELVIS ADULT BL from 04/04/2024 FINDINGS: BONES: No acute fracture is present. No bony destructive lesion is seen. The femoral neck is poorly visualized on the lateral view. JOINTS: No dislocation present. The right hip joint space is well maintained. SOFT TISSUE: Normal. IMPRESSION: Unremarkable radiographs of the right hip. DATA REPOSITORY: RADIATION DOSE DELIVERED:
--- NOTE | 2025-04-06 08:59 | DI.RAD_ITS ---
Exam(s) XR LUMBAR SPINE COMPLETE EXAM: XR LUMBAR SPINE COMPLETE CLINICAL HISTORY: right lumbar radiculopathy, acute, M54.16. TECHNIQUE: 2D digital imaging was performed of the lumbar spine. Six images were obtained. AP, lateral, right oblique, left oblique and L5-S1 spot views were obtained. COMPARISON: CR XR LUMBAR SPINE COMPLETE from 04/04/2024 FINDINGS: BONES: No fracture or destructive lesion. Vertebral bodies are unremarkable. There are mild degenerative changes of the facets at L5-S1. DISKS: Intervertebral disc spaces are maintained. ALIGNMENT: Lumbar spinal alignment is within normal limits. No spondylolysis or spondylolisthesis. SOFT TISSUE: Atherosclerotic calcification is present. IMPRESSION: Mild degenerative changes seen in the lower lumbar spine. If there are radicular concerns, an MRI should be considered for further evaluation. DATA REPOSITORY: RADIATION DOSE DELIVERED:
== END 2025-04-06 10:42 ==
LOC: DI 10:23
PROVIDERS: PCP Family Medicine; Visit Provider Family Medicine
DX: M54.16 Radiculopathy, lumbar region (principal); M25.551 Pain in right hip
CPT/HCPCS: 72110; 73502

== ENCOUNTER 2025-04-12 13:01 | Outpatient (CLI) | payer MEDICARE, BC, SELFPAY ==
--- NOTE | 2025-04-12 07:58 | DI.CT_ITS ---
Exam(s) CT ABDOMEN PELVIS W EXAM: CT ABDOMEN PELVIS W CLINICAL HISTORY: r LQ mass, ? hernia, R19.03. TECHNIQUE: Imaging Protocol: Axial computed tomography images with coronal and sagittal reformatted images were created and reviewed CONTRAST MATERIAL: Intravenous: Omnipaque 350 Contrast volume:75 ml Oral: yes COMPARISON: No exams were available for comparison FINDINGS: ABDOMEN and PELVIS: Lung Bases: No acute findings. Liver: Normal density. No suspicious mass. Gallbladder and biliary tract: No radiodense calculus. No wall thickening or pericholecystic fluid. No biliary dilation. Pancreas: Normal density. No abnormal calcifications or inflammatory process. No evidence of mass. Spleen: Normal. Kidneys: Normal size, contour and axis. No radiodense stones. No obstructive uropathy. No suspicious masses seen. Adrenal glands: No masses seen. Vasculature: Abdominal aorta non-dilated. Soft tissues: Unremarkable. No evidence abdominal wall or inguinal hernia. Bladder: No gross wall thickening. No calculi.No focal mass. Bowel: No obstruction. No bowel wall thickening. Appendix normal. Diverticulosis greatest of the lower descending region. No evidence of diverticulitis. Peritoneal cavity: No ascites. No focal collection. No mesenteric inflammatory response. No free air. Bones: Unremarkable for age. Reproductive organs: 4.1 by 4.8 by 6.3 centimeter left ovarian cyst which appears simple. Lymph nodes: No pathologically enlarged lymph nodes. IMPRESSION:: No evidence of a hernia. 4.8 by 6.3 by 4.1 centimeter left ovarian cyst. An ultrasound could be performed for further evaluation. Unexpected findings RADIATION DOSE DELIVERED: Total DLP DATA REPOSITORY: All CT scans at this facility are submitted to the National Radiology Data Registry (NRDR) Dose Index Registry (DIR) with the [employer] (A[employer]). RADIATION OPTIMIZATION: All CT scans at this facility use at least one of these dose optimization techniques: automated exposure control; mA and/or kV adjustment per patient size (includes targeted exams where dose is matched to clinical indication); or iterative reconstruction.
[2025-04-12] MEDS: Barium Sulfate 2% W/V-Creamy Vanilla Smoothie 450 ML BTL PO ×2 (13:11→13:13)
[2025-04-12 13:12] LABS: Estimated GFR 67.08 (mL/min/1.73m2)
[2025-04-12] MEDS: Normal Saline - Diluent 50 ML VIAL IJ (15:01)
[2025-04-12] MEDS: Omnipaque 350 MG/ML 100 ML BTL IJ (15:01)
[2025-04-12] MEDS: Normal Saline Flush 10 ML SYR IVP (15:07)
== END 2025-04-12 13:21 ==
LOC: DI 04-27 13:01
PROVIDERS: PCP Family Medicine; Visit Provider Family Medicine
DX: R19.03 Right lower quadrant abdominal swelling, mass and lump (principal)
CPT/HCPCS: 74177; 82565; J3490

== ENCOUNTER 2025-04-18 01:39 | Outpatient (CLI) | payer MEDICARE, BC, SELFPAY ==
--- NOTE | 2025-04-18 07:30 | DI.US_ITS ---
Exam(s) US PELVIS TRANSVAGINAL EXAM: US PELVIS TRANSVAGINAL CLINICAL HISTORY: large ovarian mass,n93.8 TECHNIQUE: Ultrasound of the pelvis was performed both transabdominal and transvaginal. COMPARISON: CT CT ABDOMEN PELVIS W from 04/12/2025 FINDINGS: UTERUS: Nongravid and anteverted, Measures 6 cm length x 0.8 cm AP x 3.7 cm wide. There is a fundal level fibroid which measures approximately 1.6 x 1.0 cm.It exhibits somewhat indistinct borders. There is fluid in the endometrial canal and within the endocervical canal evident. CERVIX: There is fluid in the endocervical canal RIGHT OVARY: Not able to be visualized. There is a small cyst in the right adnexa measuring 1.6 x 1.1 x 1.2 cm. LEFT OVARY: Measures 5.6 x 3.4 x 35.1 cm Contains a cyst measuring 5.4 x 3.2 x 3.9 cm. This cyst appears simple without internal septate nor obvious mural nodules. CUL-DE-SAC: No free fluid evident. IMPRESSION: 1. There is significant fluid in the endometrial canal and within the endocervical canal. 2. There is a somewhat indistinct anterior myometrial fibroid at the level the fundus measuring approximately 1.6 x 1.0 cm. 3. There is a simple appearing cyst in the left ovary measuring 5.4 x 3.2 x 3.9 cm. There is no free fluid in the adnexal regions nor in the cul-de-sac. 4. The right ovary is difficult to visualize but there does appear to be a small 1.6 x 1.0 cm cyst in the right adnexa which may be associated with the right ovary. DATA REPOSITORY:
== END 2025-04-18 01:59 ==
PROVIDERS: PCP Family Medicine; Visit Provider Family Medicine
DX: N83.8 Other noninflammatory disorders of ovary, fallopian tube and broad ligament (principal)
CPT/HCPCS: 36415; 86304; 76830; 76856

== ENCOUNTER 2025-04-18 15:10 | Outpatient (CLI) | payer MEDICARE, BC, SELFPAY ==
[2025-04-19 11:40] LABS: CA 125 4 U/mL (<30)
== END 2025-04-18 15:11 | disposition home or self-care (01) ==
LOC: LBO 15:10
PROVIDERS: PCP Family Medicine; Visit Provider Obstetrics & Gynecology
DX: R19.04 Left lower quadrant abdominal swelling, mass and lump (principal)
CPT/HCPCS: 36415; 86304; 87798; 86618

== ENCOUNTER 2025-05-03 14:50 | Outpatient (CLI) | payer MEDICARE, BC, SELFPAY ==
--- NOTE | 2025-05-03 06:15 | DI.CT_ITS ---
Exam(s) CT CHEST W EXAM: CT CHEST W CLINICAL HISTORY: chronic cough R05.3 TECHNIQUE: Imaging Protocol: Axial computed tomography images with coronal and sagittal reformatted images were created and reviewed. Computer aided detection (CAD) was utilized. CONTRAST MATERIAL: Intravenous: Omnipaque 350 Contrast volume:70 ml. COMPARISON: None FINDINGS: Pulmonary parenchyma: There is a area of atelectasis or scarring in the superior segment of the left upper lobe medially which extends to the level of the hilum. Question of mild associated bronchiectasis. Some surrounding soft tissue density. Mild biapical scarring. Mild emphysematous changes. Pulmonary nodules: Right upper lobe: Tiny peripheral nodule anteriorly Right middle lobe: Scattered micro nodules. Right lower lobe: 5 millimeter nodule posteriorly. 7 x 5 millimeter pleural- based circumscribed nodule laterally. 6 x 4 millimeter circumscribed pleural- based nodule medially. Left upper lobe: Left lower lobe: 5 millimeter pleural base nodule medially. Tracheobronchial tree: No mucous plugging. Mediastinum and Maya: No dominant adenopathy or fluid collection. Pleura: No effusion. No pneumothorax. Heart: The heart is not dilated. Mild coronary artery calcifications are seen. Aorta: Thoracic aorta non-dilated. Mild atherosclerotic changes. Pulmonary arteries: Suboptimally opacified. No gross evidence of emboli. Upper abdomen: No acute findings. Bones: Degenerative changes in the spine. Soft tissues: Unremarkable. IMPRESSION: Area of apparent scarring/atelectasis with some surrounding soft tissue density in the superior segment of the left lower lobe. Other bilateral circumscribed nodules are present. Three month follow-up chest CT is recommended. Alternatively, PET-CT could be performed. RADIATION DOSE DELIVERED: Total DLP DATA REPOSITORY: All CT scans at this facility are submitted to the National Radiology Data Registry (NRDR) Dose Index Registry (DIR) with the [employer] (ACR). RADIATION OPTIMIZATION: All CT scans at this facility use at least one of these dose optimization techniques: automated exposure control; mA and/or kV adjustment per patient size (includes targeted exams where dose is matched to clinical indication); or iterative reconstruction.
[2025-05-03] MEDS: Normal Saline - Diluent 50 ML VIAL IJ (15:17)
[2025-05-03] MEDS: Normal Saline Flush 10 ML SYR IVP (15:17)
[2025-05-03] MEDS: Omnipaque 350 MG/ML 100 ML BTL IJ (15:18)
== END 2025-05-03 15:10 ==
LOC: DI 14:50
PROVIDERS: PCP Family Medicine; Visit Provider Family Medicine
DX: R05.3 Chronic cough (principal)
CPT/HCPCS: 71260; J3490

== ENCOUNTER 2025-05-04 13:48 | Outpatient (CLI) | payer MEDICARE, BC, SELFPAY ==
[2025-05-04] MEDS: Levalbuterol HFA 15 GM INH 4 PUFF IH (16:49)
[2025-05-04] MEDS: Inhaler, Assist Device 1 EACH MC (16:49)
--- NOTE | 2025-05-15 08:35 | W.PFT ---
Date of service: 05/04/25 Time of Service: 15:30 Pulmonary Function Test Result Indications: Cough Impression 1. Good patient effort was noted. ATS standards for reproducibility were met. 2. Normal spirometry. 3. Following the administration of a bronchodilator there was not a significant response 4. TLC was normal. No evidence of restrictive lung disease 5. DLCO was normal indicating normal alveolar gas exchange
== END 2025-05-04 13:49 | disposition home or self-care (01) ==
LOC: RT 13:48
PROVIDERS: PCP Family Medicine; Visit Provider Internal Medicine Pulmonary Disease
DX: R05.3 Chronic cough (principal)
CPT/HCPCS: 94060; 94726; 94729

== ENCOUNTER 2025-05-11 02:49 | Outpatient (CLI) | payer MEDICARE, BC, SELFPAY ==
--- NOTE | 2025-05-11 05:30 | ETT_ITS ---
APPROVED REPORT Exam: Exercise Treadmill Patient Location: Out-Patient Room/Bed: Stress Nurse: Katharina Slade RN Ordering Provider:CALIN PORTILLO, Contact Number: [phone] BMI: 27.63 Baseline Rhythm: Sinus Rhythm. Indications: Chest Pressure; Other Chest Pain. Medical History Medical History: Depression; HLD; Chronic Fatigue Syndrome; Fibromyalgia; Chronic Hip Pain; Sleep Apnea; Vertigo. Cardiac Medications: Albuterol; Propranolol; Yuvafem. Allergies: Gabapentin; Lexapro; Sulfas. Cardiac Risk Factors: Family Hx; HLD. Previous Cardiac Procedures: None. Pretest Chest Pain Characteristics: None. Exercise History: Physically active. Physical Disabilities: None. Lung Sounds: Clear bilaterally throughout, anterior and posterior. Heart Sounds: S1 and S2 auscultated. Stress Test Details Test: Exercise stress testing was performed using a Ricki protocol. Rest Stress HR Resting HR Supine: 67 bpm Max Heart Rate (APMHR): 146 bpm Resting HR Standin bpm Target HR (85% APMHR): 124 bpm Max HR Achieved: 126 bpm % of APMHR: 86 Recovery HR: 85 bpm HR response to stress: Normal HR response to stress. BP Resting BP Supine: 142/84 mmHg Resting BP Standin/60 mmHg Max BP: 190/50 mmHg Recovery BP: 140/66 mmHg BP response to stress: Normal blood pressure response to stress. ECG Resting ECG: Sinus Rhythm. Ectopy: None. Stress ECG: Sinus Tachycardia. ST Change: No significant ST segment changes noted. Arrhythmia: None. Recovery ECG: Sinus Rhythm. Recovery ST Change: No significant ST segment changes noted. Recovery Arrhythmia: None. Clinical Reason for Termination: Target HR Achieved; Chest pain/Anginal equivalent. Stress Symptoms: Chest pain/pressure; Chest fullness; Nausea. Exercise duration: 06 min37 sec Highest Stage Reached: Stage 3: 3.4 mph at 14% grade. Exercise capacity: 7.98 METs Angina Score: Exercise-Limiting Rate Pressure Product: [id number] Stress ECG Conclusion 1. Resting electrocardiogram was normal 2. Patient exercised on the Ricki protocol and completed workload of 8 METS 3. Normal heart rate and blood pressure response to exercise. The patient achieved 86% of maximal predicted heart rate for age 4. There was no electrocardiographic evidence of myocardial ischemia 5. There were no significant dysrhythmias Stress Test Summary STAGE Time (mins) Speed (mph) Grade (%) HR BP SpO2 SYMPTOMS METS Supine 67 142/84 94 Pt. denied any symptoms. Standing 65 140/60 96 Pt. denied any symptoms. 1 3 1.7 10 106 160/62 97 Pt. c/o 2/10, sternal, chest pain/pressure and fullness; ...almost like nausea. 4.5 2 6 2.5 12 121 186/70 97 Pt. c/o 2/10, sternal, chest pain/pressure, fullness, and nausea. 7 3 9 3.4 14 126 97 Pt. c/o 4/10, sternal, chest pain/pressure, fullness, and nausea. Pt. states that it is radiating up in to her right neck and jaw. Pt. requesting to stop the ETT. 10 1 min recovery 92 190/50 98 Pt. c/o 3/10, sternal, chest pain/pressure, fullness, and nausea that radiates to her right neck and jaw. Pt. also c/o a mild headache. 3 min recovery 87 130/66 98 Pt. c/o 2/10, sternal, chest pain/pressure, fullness, and nausea; denies any radiation of the pain. Pt. also c/o a mild headache. 6 min recovery 85 140/66 97 Pt. denies any chest pain/pressure, fullness, or nausea. Pt. denies any headache. Pt. states that all symptoms have resolved. Pt. performed an ETT stress test using the Ricki protocol. ETT was stopped when pt. achieved a heart rate higher than the target heart rate and when pt. requested to stop due to limiting chest pain/pressure, fullness, and nausea that radiated from her sternum up to her right neck and jaw. Prior to beginning the ETT, pt. denied any symptoms. During Stage 1 of exercise, pt. c/o 2/10, sternal, chest pain/pressure and fullness; ...almost like nausea. During Stage 2 of exercise, pt. c/o 2/10, sternal, chest pain/pressure, fullness, and nausea. During Stage 3 of exercise, pt. c/o 4/10, sternal, chest pain/pressure, fullness, and nausea. Pt. states that it is radiating up in to her right neck and jaw. Pt. requesting to stop the ETT. During Stage 1 of recovery, pt. c/o 3/10, sternal, chest pain/pressure, fullness, and nausea that radiates to her right neck and jaw. Pt. also c/o a mild headache. During Stage 2 of recovery, pt. c/o 2/10, sternal, chest pain/pressure, fullness, and nausea; denies any rad iation of the pain. Pt. also c/o a mild headache. During Stage 3 of recovery, pt. denies any chest pain/pressure, fullness, or nausea. Pt. denies any headache. Pt. states that all symptoms have resolved. Pt. was conversing pleasantly with nursing staff upon leaving the Stress Lab. Pt. left ambulatory i n no apparent distress.
== END 2025-05-11 03:09 ==
LOC: DI 02:49
PROVIDERS: PCP Family Medicine; Visit Provider Internal Medicine Cardiovascular Disease
DX: R07.89 Other chest pain (principal)
CPT/HCPCS: 93016; 93018; 93017

== ENCOUNTER 2025-05-17 07:52 | Day surgery (SDC) | payer MEDICARE, BC, SELFPAY ==
[2025-05-17 08:15] VITALS: BP 147/57; PULSE 65; RESP 14; TEMP 36.6; O2SAT 97
[2025-05-17] MEDS: Lactated Ringers 1,000 ML 125 ML IV (08:38)
--- NOTE | 2025-05-17 08:43 | ANES.PREOP_ITS ---
General Info Date of Service Date Performed: 05/17/25 Height: 5 ft 4 in Weight: 75.5 kg Body Mass Index (BMI): 28.5 Surgical Procedure: Operation Date: 05/17/25 09:25 Proposed Procedure Side Surgeon p Dilation & Curettage with Hysteroscopy Nikki Cabral MD Meds Allergies and Home Medications Allergies Allergy/AdvReac Type Severity Reaction Status Date / Time escitalopram (From Lexapro) Allergy Intermediate Rash Verified 05/17/25 08:22 Sulfa (Sulfonamide Allergy Intermediate HIVES Verified 05/17/25 08:22 Antibiotics) gabapentin AdvReac Mild LA LA Verified 05/17/25 08:22 LAND midazolam (From Versed) AdvReac Mild Other (See Unverified 05/17/25 08:23 Comment) Home Medication ?Medication ?Instructions ?Recorded inhalational spacing device #1 ea 03/19/20 (POCKET CHAMBER spacer) Blink Gel Tears OU DAILY 05/21/21 propranolol 10 mg tablet 10 mg PO BID PRN 05/21/21 triamcinolone acetonide 0.1 % 1 applic topical BID PRN rash #80 04/15/22 topical ointment grams ciprofloxacin HCl 250 mg tablet 250 mg PO DAILY PRN UT I #90 tabs 03/02/23 nystatin 100,000 unit/gram topical 1 applic topical BI D #60 grams 04/04/24 powder docusate sodium 100 mg capsule 100 mg PO DAILY PRN (Colace) acetaminophen 500 mg tablet 500 mg PO Q6H PRN 04/18/25 estradiol 10 mcg vaginal tablet 10 mcg vaginal .three times weekly 04/18/25 (Yuvafem) #36 tabs ibuprofen 200 mg tablet 200 mg PO Q6H PRN 04/18/25 albuterol sulfate 90 mcg/actuation 2 puff inhalation Q ID PRN 05/08/25 aerosol inhaler (Ventolin HFA) shortness of breath or wheezing #18 grams varicella-zoster glycoE [id number] 0.5 ml IM ONCE #1 e a 05/08/25 adj(PF) 50 mcg/0.5 mL IM susp, kit (Shingrix (PF)) omeprazole 20 mg capsule,delayed 20 mg PO DAILY Reflux 05/15/25 release Current Visit Medications: Current Medications Generic Name Dose Route Start Last Admin Trade Name Freq PRN Reason Stop Dose Admin Ringer's Solution 1,000 mls @ 125 mls/hr 05/17/25 06:00 05/17/25 08:38 IV 05/17/25 23:59 125 mls/hr INFUSION ROMMEL Administration IV Miscellaneous Supplies 1 each 05/17/25 06:00 Iv Access IV 05/17/25 23:59 DIRECTED ROMMEL Sodium Chloride 0 ml 05/17/25 06:00 Normal Saline Flush 10 Ml Syr IV 05/17/25 23:59 PRN PRN Sodium Chloride 0 ml 05/17/25 06:00 Normal Saline 10 Ml Vial IJ 05/17/25 23:59 DIRECTED PRN Sterile Water 0 ml 05/17/25 06:00 Water,Injection,Sterile 10 Ml Vial IJ 05/17/25 23:59 DIRECTED PRN PFSH Active Problems Active Problems: Problem Status Onset Code Abnormal CT of the chest Acute R93.89 Hip pain, right Acute M25.551 Chronic cough Acute R05.3 RLQ abdominal pain Acute R10.31 Ovarian mass Acute N83.8 Lumbar radiculopathy, acute Acute M54.16 Trochanteric bursitis of both hips Acute M70.61, M70.62 Leg cramps Acute R25.2 Hip pain, bilateral Acute M25.551, M25.552 SOB (shortness of breath) Acute R06.02 Osteopenia Acute M85.80 Bilateral edema of lower extremity Acute 12/02/16 R60.0 Cervical spondylosis Chronic 08/12/11 M47.812 Chronic fatigue syndrome Chronic 02/03/13 R53.82 Depressive disorder Chronic 02/03/13 F32.9 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 of benign positional vertigo Chest pain 08/31/04 neg ETT Chronic sinusitis 10/19/07 she feels it is diet related Diverticulosis of colon 04/05/14 [facility]-normal Plantar wart of left foot 08/13/15 History of snoring 08/13/15 Chronic right shoulder pain 12/03/15 Tear of right rotator cuff 03/19/16 unspecified tear extent, MRI scheduled Bilateral edema of lower extremity 12/02/16 Attention deficit disorder (09/24/17) Face lesion (08/13/15) right methodist, 8mm, uniform color Hemorrhoids, complicated (02/07/14) s/p banding Polyp of colon (07/30/05) tubular adenoma Sleep apnea, central (01/09/16) [facility] sleep study 01/03/16 Surgical History Surgical History History of bilateral tubal ligation Colonoscopy - MAC (~06/27/19) 2009 2013 2018 History of colonoscopy with polypectomy (~05/2024) Hx of dilation and curettage History of section Status post anal fissurectomy Status post hemorrhoidectomy H/O section 1985,1987,1993 S/P anal fissurectomy 08/31/81 S/P hemorrhoidectomy 12/29/13 banding section 1985,1987,1993 Hemorrhoidectomy 07/08/17 Hemorrhoidal Banding (~12/2013) FISSURE REPAIR (~1981) Tobacco Smoking/Tobacco Use Status: Never Passive smoking exposure: Yes Second hand exposure: Yes (as a child) Alcohol Alcohol Intake: current Alcohol intake frequency: holidays/special occasions only Alcohol type: beer and wine Substance Use Substance use: Never Substance use type: does not use Prental History History 5 Para 3 Hx # Term Pregnancies Multiple births Hx # Pregnancies Ectopic pregnancies AB induced 1 Hx Number of Living Children AB spontaneous 1 Past Pregnancies Del. Date GA/Weeks # Preg Succ Route Wgt Sex Labor Lgth Anesth esia Location Prov Complic Unknown 4195.729 g Male [place], [place] Unknown 3657.088 g Female [place], [place] Unknown 3175.147 g Female [place] Delivery Date: Last Updated by: Denise Sánchez RN Baby born Delivery Date: Last Updated by: Denise Sánchez RN Baby born Delivery Date: Last Updated by: Denise Sánchze RN Baby born Vital Signs and Lab Results Vital Signs Most Recent Vital Signs in EMR: Most Recent Vital Signs Temp Pulse Resp BP Pulse Ox 36.6 C 65 14 147/57 H 97 05/17/25 08:15 05/17/25 08:15 05/17/25 08:15 05/17/25 08:15 05/17/25 08:15 Imaging and Studies Imaging and Studies Study information below may be from another EMR and interpreted by another provider. Please see original notes in EMR for more complete details. Stress Test Summary: 05/11/25 STRESS TEST PATIENT NAME: Sarah Wiggins UNIT #: [id number] ORDERING PROVIDER: Beatrice Dickens M.D., [place] PRIMARY CARE PROVIDER: BEATRICE DICKENS MD, DC DATE/TIME OF SERVICE: 05/11/25 ADMITTING PROVIDER: JESUS DANGELO MD : 1950 APPROVED REPORT Exam: Exercise Treadmill Patient Location: Out-Patient Room/Bed: Stress Nurse: Katharina Slade RN Ordering Provider:BEATRICE DICKENS, Contact Number: [phone] BMI: 27.63 Baseline Rhythm: Sinus Rhythm. Indications: Chest Pressure; Other Chest Pain. Medical History Medical History: Depression; HLD; Chronic Fatigue Syndrome; Fibromyalgia; Chronic Hip Pain; Sleep Apnea; Vertigo. Cardiac Medications: Albuterol; Propranolol; Yuvafem. Allergies: Gabapentin; Lexapro; Sulfas. Cardiac Risk Factors: Family Hx; HLD. Previous Cardiac Procedures: None. Pretest Chest Pain Characteristics: None. Exercise History: Physically active. Physical Disabilities: None. Lung Sounds: Clear bilaterally throughout, anterior and posterior. Heart Sounds: S1 and S2 auscultated. Stress Test Details Test: Exercise stress testing was performed using a Ricki protocol. Rest Stress HR Resting HR Supine: 67 bpmMax Heart Rate (APMHR): 146 bpm Resting HR Standin bpmTarget HR (85% APMHR): 124 bpm Max HR Achieved: 126 bpm % of APMHR: 86 Recovery HR: 85 bpm HR response to stress: Normal HR response to stress. BP Resting BP Supine: 142/84 mmHg Resting BP Standin/60 mmHg Max BP: 190/50 mmHg Recovery BP: 140/66 mmHg BP response to stress: Normal blood pressure response to stress. ECG Resting ECG: Sinus Rhythm. Ectopy: None. Stress ECG: Sinus Tachycardia. ST Change: No significant ST segment changes noted. Arrhythmia: None. Recovery ECG: Sinus Rhythm. Recovery ST Change: No significant ST segment changes noted. Recovery Arrhythmia: None. Clinical Reason for Termination: Target HR Achieved; Chest pain/Anginal equivalent. Stress Symptoms: Chest pain/pressure; Chest fullness; Nausea. Exercise duration: 06 min37 sec Highest Stage Reached: Stage 3: 3.4 mph at 14% grade. Exercise capacity: 7.98 METs Angina Score: Exercise-Limiting Rate Pressure Product: [id number] Stress ECG Conclusion 1. Resting electrocardiogram was normal 2. Patient exercised on the Ricki protocol and completed workload of 8 METS 3. Normal heart rate and blood pressure response to exercise. The patient achieved 86% of maximal predicted heart rate for age 4. There was no electrocardiographic evidence of myocardial ischemia 5. There were no significant dysrhythmias Stress Test Summary STAGETime (mins)Speed (mph)Grade (%)[id number]. denied any symptoms. [id number]. denied any symptoms. [id number]. c/o 2/10, sternal, chest pain/pressure and fullness; ...almost like nausea.4.5 [id number]. c/o 2/10, sternal, chest pain/pressure, fullness, and nausea.7 [id number]. c/o 4/10, sternal, chest pain/pressure, fullness, and nausea. Pt. states that it is radiating up in to her right neck and jaw. Pt. requesting to stop the ETT.10 1 min [id number]. c/o 3/10, sternal, chest pain/pressure, fullness, and nausea that radiates to her right neck and jaw. Pt. also c/o a mild he adache. 3 min [id number]. c/o 2/10, sternal, chest pain/pressure, fullness, and nausea; denies any radiation of the pain. Pt. also c/o a mild headache. 6 min [id number]. denies any chest pain/pressure, fullness, or nausea. Pt. denies any headache. Pt. states that all symptoms have resolved. Pt. performed an ETT stress test using the Ricki protocol. ETT was stopped when pt. achieved a heart rate higher than the target heart rate and when pt. requested to stop due to limiting chest pain/pressure, fullness, and nausea that radiated from her sternum up to her right neck and jaw. Prior to beginning the ETT, pt. denied any symptoms. During Stage 1 of exercise, pt. c/o 2/10, sternal, chest pain/pressure and fullness; ...almost like nausea. During Stage 2 of exercise, pt. c/o 2/10, sternal, chest pain/pressure, fullness, and nausea. During Stage 3 of exercise, pt. c/o 4/10, sternal, chest pain/pressure, fullness, and nausea. Pt. states that it is radiating up in to her right neck and jaw. Pt. requesting to stop the ETT. During Stage 1 of recovery, pt. c/o 3/10, sternal, chest pain/pressure, fullness, and nausea that radiates to her right neck and jaw. Pt. also c/o a mild headache. During Stage 2 of recovery, pt. c/o 2/10, sternal, chest pain/pressure, fullness, and nausea; denies any radiation of the pain. Pt. also c/o a mild headache. During Stage 3 of recovery, pt. denies any chest pain/pressure, fullness, or nausea. Pt. denies any headache. Pt. states that all symptoms have resolved. Pt. was conversing pleasantly with nursing staff upon leaving the Stress Lab. Pt. left ambulatory in no apparent distress. Dictated by: ANTOLIN ROBERSONJESUS MARIN Dictated:: 05/11/25 [id number] <Electronically signed by Jesus Dangelo M.D. in OV> Echocardiogram Summary: 06/06/21 Conclusion Normal left ventricular wall thickness and chamber size. Estimated ejection fraction is 60%. Wall motion is normal Normal right ventricular size and systolic function Both atria are normal in size There is no significant valvular disease Normal estimated right ventricular systolic pressure 26 mmHg Borderline dilated ascending aorta Pulmonary Function Summary: Date of service: 05/04/25 Time of Service: 15:30 Pulmonary Function Test Result Indications: Cough Impression 1. Good patient effort was noted. ATS standards for reproducibility were met. 2. Normal spirometry. 3. Following the administration of a bronchodilator there was not a significant response 4. TLC was normal. No evidence of restrictive lung disease 5. DLCO was normal indicating normal alveolar gas exchange Anesthesia Assessment and Plan Anesthesia History Personal History: No History of Anesthesia Complications and Other Family History: No Family History of Anesthesia Complications Exercise Tolerance Exercise Tolerance: Metabolic Equivalents>4 Pertinent Negatives Pertinent Negatives: No Symptoms of GERD, No Major Cardiovascular Symptoms or Complaints, No Major Pulmonary Symptoms or Complaints and No History of CVA/TIA Cardiac & Pulmonary Exam Cardiac Exam: Normal S1/S2 Heart Sounds Pulmonary Exam: Clear Bilateral Breath Sounds and Active Dry Cough Cardiac and Pulmonary Comment:: Chronic cough, central sleep apnea, uses CPAP Implantable Cardiac Device Does patient have a Pacemaker or an ICD?: No Airway Exam Known Difficult Airway: No Mallampati Class: 2 Mouth Opening: Normal (> 3cm) Thyromental Distance: Greater than 3 cm Neck Range of Motion: Full ROM Neck Circumference: Normal Teeth Condition: Normal Dentition ASA Classification ASA Score: ASA 2 Emergency Case?: No NPO Status NPO Status: NPO Clears >2 hours, Solids >8 hours Anesthesia Plan Resuscitation Status: Full Code Anesthesia Technique: General Anesthesia Airway Planned: Natural Airway Monitors Used: Standard Monitors
[2025-05-17 08:49] VITALS: BMI 28.5
--- NOTE | 2025-05-17 09:29 | ENDOMET_PTH ---
PATIENT: Sarah Wiggins LOC: [facility] U#:[id number] AGE/SX: 74/F ROOM: RE05/17/[address]: Nikki Cabral MD : 1950 BED: DIS: 05/17/2025 SPEC #: [id number] RECD: 05/17/25 12:31 STATUS: MARIAM REMelanie #: [id number] SEBAS: 05/17/25 09:[address]: Nikki Cabral DEPT: Surgical Specimen RECD BY: Val Garvin ENTERED: 05/17/25 12:31 SP TYPE: Endomet OTHR DR: Beatrice Dickens MD, DC Tissues: 1 - ENDOMETRIUM BX/CURRETTE 2 - ENDOMETRIUM BX/CURRETTE Procedures: GROSS AND MICRO LEVEL 4 Comments: [id number]
[2025-05-17] MEDS: Silver Nitrate Stick 1 EACH (09:39)
[2025-05-17 09:40] VITALS: BP 121/51; PULSE 70; RESP 16; TEMP 36.3; O2SAT 94
--- NOTE | 2025-05-17 09:46 | W.ANESPOSTOP ---
Postoperative Evaluation Date, Time and Location Date Performed: 05/17/25 Time Performed: 09:46 Patient Location: Day Surgery Unit Vital Signs Most Recent Imported Vital Signs: Most Recent Vital Signs Temp Pulse Resp BP Pulse Ox 36.3 C L 70 16 121/51 L 94 05/17/25 09:40 05/17/25 09:40 05/17/25 09:40 05/17/25 09:40 05/17/25 09:40 Assessment Mental Status: Awake (Alert & Oriented to Patient Baseline) Airway and Respiratory Function: Patent airway with normal (patient baseline) respiratory exam Cardiovascular Function: Hemodynamically Stable Hydration Status: Adequately Hydrated Nausea & Vomiting: No Nausea or Vomiting Pain: Pt. Denies Any Pain Peripheral Nerve Block: Patient did not receive a nerve block
--- NOTE | 2025-05-17 09:48 | ROE_ITS ---
Operative Note Operative Note PRE-OP DIAGNOSIS: abnormal findings on ultrasound POST-OP DIAGNOSIS: same PROCEDURE: Hysteroscopy, dilation and curettage SURGEON: Nikki Cabral Refer to Anesthesia Record ESTIMATED BLOOD LOSS: 2 PATHOLOGY: other (Endometrial contents and curettings) COMPLICATIONS: None Patient was transported to: same day Patient's condition: stable Indications: 74yo referred for incidental findings on CT scan including fluid in the endometrium and a possible small fibroid. Unable to do office endometrial biopsy due to a stenotic cervix. Findings: Normal appearing external genitalia, vagina and cervix. Normal appearing uterine cavity with both ostia visualized. No obvious intramural fibroid. Some clear gelatinous material was noted in the endometrial cavity. Procedure Description: After informed consent was signed the patient was taken to the operating room and given General room air anesthesia. SCDs were placed on her legs. She was prepped and draped in the dorsal lithotomy position in the [facility]. A time out was performed. Her bladder was drained of urine if not done immediately prior to entrance to the OR. Exam under anesthesia revealed normal external genitalia, vagina normal for age and a normal sized uterus. A speculum was placed into the vagina to reveal the cervix. The anterior lip of the cervix was grasped with a single tooth tenaculum. The cervix was dilated. The hysteroscope was assembled and turned on. It was inserted into the uterine cavity with the above noted normal findings. The hysteroscope was removed and a sharp curettage was performed. The gelatinous material and the curettage specimen was sent for pathology. The tenaculum was removed from the cervix with good hemostasis with silver nitrate. The speculum was removed from the vagina. The patient was placed back into the supine position. She was moved to the stretcher and taken to the recovery room in stable condition. Date of Procedure: 05/17/25
[2025-05-17 10:11] VITALS: BP 132/54; PULSE 64; RESP 16; TEMP 36.4; O2SAT 94
== END 2025-05-17 10:52 | disposition home or self-care (01) ==
PROVIDERS: PCP Family Medicine; Visit Provider Obstetrics & Gynecology
PROC: 0UDB8ZZ Extraction of Endometrium, Via Natural or Artificial Opening Endoscopic (ICD-10-PCS; CPT 58558; principal; 2025-05-17 09:15)
DX: R93.5 Abnormal findings on diagnostic imaging of other abdominal regions, including retroperitoneum (principal); R53.82 Chronic fatigue, unspecified; M54.16 Radiculopathy, lumbar region; Z79.899 Other long term (current) drug therapy
CPT/HCPCS: 58558; 88305; J1100; J1885; J2003; J2405; J2704

== ENCOUNTER → 2025-05-22 12:47 | Outpatient (BNVA) | payer MEDICARE, BC, SELFPAY | PROVIDERS: PCP Family Medicine; Referring Provider Family Medicine; Visit Provider Internal Medicine Pulmonary Disease | DX: R06.02 Shortness of breath (principal); R05.3 Chronic cough | CPT/HCPCS: 99215 ==

== ENCOUNTER 2025-05-25 02:19 | Outpatient (CLI) | payer MEDICARE, BC, SELFPAY ==
[2025-05-25] MEDS: Methacholine 100 MG VIAL IH (14:48)
[2025-05-25] MEDS: Inhaler, Assist Device 1 EACH MC (14:48)
[2025-05-25] MEDS: Albuterol HFA 18 GM 200 PUFF INH IH (14:49)
--- NOTE | 2025-05-29 10:00 | W.PFT ---
Date of service: 05/25/25 Time of Service: 13:05 Pulmonary Function Test Result Indications: Chronic cough Impression 1. Good patient effort was noted. ATS standards for reproducibility were met. 2. Normal spirometry. 3. Following the administration of 0.4 mg/mL of methacholine, there was a 21% fall in FEV1. Conclusion: - positive methacholine challenge test
== END 2025-05-25 02:20 | disposition home or self-care (01) ==
LOC: RT 02:19
PROVIDERS: PCP Family Medicine; Visit Provider Internal Medicine Pulmonary Disease
DX: R05.3 Chronic cough (principal)
CPT/HCPCS: 94070 ×2; 95070; J7674

== ENCOUNTER → 2025-06-07 14:19 | Outpatient (BNVA) | payer MEDICARE, BC, SELFPAY | PROVIDERS: PCP Family Medicine; Referring Provider Family Medicine; Visit Provider Internal Medicine Pulmonary Disease | DX: R05.3 Chronic cough (principal); R91.1 Solitary pulmonary nodule; J45.991 Cough variant asthma | CPT/HCPCS: 99214 ==

== ENCOUNTER 2025-06-13 02:11 | Outpatient (CLI) | payer MEDICARE, BC, SELFPAY ==
--- NOTE | 2025-06-13 07:00 | DI.US_ITS ---
Exam(s) US PELVIS TRANSVAGINAL EXAM: US PELVIS TRANSVAGINAL CLINICAL HISTORY: f/u ovarian cyst,OVARIAN MASS,N83.8 TECHNIQUE: Transabdominal and transvaginal imaging was performed using standard protocol. COMPARISON: CT CT ABDOMEN PELVIS W from 04/12/2025 US US PELVIS TRANSVAGINAL from 04/18/[address] CHEST W from 05/03/2025 FINDINGS: The bladder is unremarkable. UTERUS: Anteverted. 5.0 x 3.1 x 5.0 cm Endometrium: 2 mm no fluid within the endometrial endocervical cavities. Myometrium: Anterior fibroid measuring 2.3 cm in maximal dimension. Cervix: Unremarkable. OVARIES: Right: Cyst or mass: Not well visualized. Small follicles. Left: Cyst or mass: 5.2 x 2.6 x 4.2 centimeter cyst with avascular septation measuring 3 millimeters in thickness. DOPPLER: Color: Symmetric and uniform flow to both ovaries. No hyperemia. CUL-DE-SAC: Free fluid: None. IMPRESSION: 1. Small uterine fibroid.. 2. Roughly stable size of the left ovarian cyst, however there is a thick vascular septation now visualized. DATA REPOSITORY:
== END 2025-06-13 02:31 ==
LOC: DI 02:11
PROVIDERS: PCP Family Medicine; Visit Provider Obstetrics & Gynecology
DX: N83.8 Other noninflammatory disorders of ovary, fallopian tube and broad ligament (principal)
CPT/HCPCS: 76830; 76856

== ENCOUNTER 2025-07-05 06:10 | Day surgery (SDC) | payer MEDICARE, BC, SELFPAY ==
[2025-07-05] VITALS (31 sets, daily range): BP systolic 100–136; BP diastolic 46–74; PULSE 57–76; RESP 9–23; TEMP 36.2–37.4; O2SAT 92–100; BMI 28.6
[2025-07-05] MEDS: Lactated Ringers 1,000 ML 125 ML IV (06:45)
--- NOTE | 2025-07-05 07:21 | ANES.PREOP_ITS ---
General Info Date of Service Date Performed: 07/05/25 Height: 5 ft 4 in Weight: 75.8 kg Body Mass Index (BMI): 28.6 Surgical Procedure: Operation Date: 07/05/25 07:40 Proposed Procedure Side Surgeon p Salpingoopherectomy Laparoscopic Bilateral Nikki Cabral MD Meds Allergies and Home Medications Allergies Allergy/AdvReac Type Severity Reaction Status Date / Time escitalopram (From Lexapro) Allergy Intermediate Rash Verified 07/05/25 06:33 Sulfa (Sulfonamide Allergy Intermediate HIVES Verified 07/05/25 06:33 Antibiotics) gabapentin AdvReac Mild LA LA Verified 07/05/25 06:33 LAND midazolam (From Versed) AdvReac Mild Other (See Verified 07/05/25 06:33 Comment) Home Medication Medication Instructions Recorded inhalational spacing device #1 ea 03/19/20 (POCKET CHAMBER spacer) Blink Gel Tears OU DAILY 05/21/21 propranolol 10 mg tablet 10 mg PO BID PRN 05/21/21 triamcinolone acetonide 0.1 % 1 applic topical BID PRN rash #80 04/15/22 topical ointment grams ciprofloxacin HCl 250 mg tablet 250 mg PO DAILY PRN UT I #90 tabs 03/02/23 nystatin 100,000 unit/gram topical 1 applic topical BI D #60 grams 04/04/24 powder docusate sodium 100 mg capsule 100 mg PO DAILY PRN (Colace) acetaminophen 500 mg tablet 500 mg PO Q6H PRN 04/18/25 ibuprofen 200 mg tablet 200 mg PO Q6H PRN 04/18/25 albuterol sulfate 90 mcg/actuation 2 puff inhalation Q ID PRN 05/08/25 aerosol inhaler (Ventolin HFA) shortness of breath or wheezing #18 grams varicella-zoster glycoE [id number] 0.5 ml IM ONCE #1 e a 05/08/25 adj(PF) 50 mcg/0.5 mL IM susp, kit (Shingrix (PF)) omeprazole 20 mg capsule,delayed 20 mg PO DAILY Reflux 05/15/25 release estradiol 0.01% (0.1 mg/gram) 0.25 g vaginal .twice we ekly #42.5 06/07/25 vaginal cream grams fluticasone furoate 100 1 inh inhalation DAILY #60 e a 06/07/25 mcg-vilanterol 25 mcg/dose inhalation powder (Breo Ellipta) sussyvafem 07/05/25 Current Visit Medications: Current Medications Generic Name Dose Route Start Last Admin Trade Name Freq PRN Reason Stop Dose Admin Ringer's Solution 1,000 mls @ 125 mls/hr 07/05/25 06:00 IV 07/05/25 23:59 INFUSION ROMMEL IV Miscellaneous Supplies 1 each 07/05/25 06:00 Iv Access IV 07/05/25 23:59 DIRECTED ROMMEL Sodium Chloride 0 ml 07/05/25 06:00 Normal Saline Flush 10 Ml Syr IV 07/05/25 23:59 PRN PRN Sodium Chloride 0 ml 07/05/25 06:00 Normal Saline 10 Ml Vial IJ 07/05/25 23:59 DIRECTED PRN Sterile Water 0 ml 07/05/25 06:00 Water,Injection,Sterile 10 Ml Vial IJ 07/05/25 23:59 DIRECTED PRN PFSH Active Problems Active Problems: Problem Status Onset Code Cough variant asthma Acute J45.991 Pulmonary nodule Acute R91.[address] of the chest Acute R93.89 Hip pain, right Acute M25.551 Chronic cough Acute R05.3 RLQ abdominal pain Acute R10.31 Ovarian mass Acute N83.8 Lumbar radiculopathy, acute Acute M54.16 Trochanteric bursitis of both hips Acute M70.61, M70.62 Leg cramps Acute R25.2 Hip pain, bilateral Acute M25.551, M25.552 SOB (shortness of breath) Acute R06.02 Osteopenia Acute M85.80 Bilateral edema of lower extremity Acute 12/02/16 R60.0 Cervical spondylosis Chronic 08/12/11 M47.812 Chronic fatigue syndrome Chronic 02/03/13 R53.82 Depressive disorder Chronic 02/03/13 F32.9 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 of benign positional vertigo Chest pain 08/31/04 neg ETT Chronic sinusitis 10/19/07 she feels it is diet related Diverticulosis of colon 04/05/14 [facility]-normal Plantar wart of left foot 08/13/15 History of snoring 08/13/15 Chronic right shoulder pain 12/03/15 Tear of right rotator cuff 03/19/16 unspecified tear extent, MRI scheduled Bilateral edema of lower extremity 12/02/16 Attention deficit disorder (09/24/17) Face lesion (08/13/15) right orthodoxy, 8mm, uniform color Hemorrhoids, complicated (02/07/14) s/p banding Polyp of colon (07/30/05) tubular adenoma Sleep apnea, central (01/09/16) [facility] sleep study 01/03/16 Surgical History Surgical History History of bilateral tubal ligation History of colonoscopy with polypectomy (~05/2024) 2009 2013 2018 Hx of dilation and curettage -post SAB/TAB? -05/17/25: D&C hysteroscopy for fluid in endometrium, benign path H/O section 1985,1987,1993 S/P anal fissurectomy 08/31/81 S/P hemorrhoidectomy 12/29/13 banding Tobacco Smoking/Tobacco Use Status: Never Passive smoking exposure: Yes Second hand exposure: Yes (as a child) Alcohol Alcohol Intake: current Alcohol intake frequency: holidays/special occasions only Alcohol type: beer and wine Substance Use Substance use: Never Substance use type: does not use Details: alcohol: t-3 sip of beer Prental History History 5 Para 3 Hx # Term Pregnancies 3 Multiple births Hx # Pregnancies Ectopic pregnancies AB induced 1 Hx Number of Living Children 2 AB spontaneous 1 Past Pregnancies Del. Date GA/Weeks # Preg Succ Route Wgt Sex Labor Lgth Anesth esia Location Prov Complic Unknown 4195.729 g Male [place] Unknown 3657.088 g Female [place] Unknown 3175.147 g Female RAFAEL Macias Delivery Date: Last Updated by: Denise Sánchez RN Baby born Delivery Date: Last Updated by: Denise Sánchez RN Baby born Delivery Date: Last Updated by: Denise Sánchez RN Baby born Vital Signs and Lab Results Vital Signs Most Recent Vital Signs in EMR: Most Recent Vital Signs Temp Pulse Resp BP Pulse Ox 36.4 C L 70 18 136/70 96 07/05/25 06:40 07/05/25 06:40 07/05/25 06:40 07/05/25 06:40 07/05/25 06:40 Imaging and Studies Imaging and Studies Study information below may be from another EMR and interpreted by another provider. Please see original notes in EMR for more complete details. Stress Test Summary: 05/11/25 STRESS TEST PATIENT NAME: Sarah Wiggins UNIT #: [id number] ORDERING PROVIDER: Beatrice Dickens M.D., [place] PRIMARY CARE PROVIDER: BEATRICE DICKENS MD, DC DATE/TIME OF SERVICE: 05/11/25 ADMITTING PROVIDER: JESUS DANGELO MDMAU : 1950 APPROVED REPORT Exam: Exercise Treadmill Patient Location: Out-Patient Room/Bed: Stress Nurse: Katharina Slade RN Ordering Provider:BEATRICE DICKENS, Contact Number: [phone] BMI: 27.63 Baseline Rhythm: Sinus Rhythm. Indications: Chest Pressure; Other Chest Pain. Medical History Medical History: Depression; HLD; Chronic Fatigue Syndrome; Fibromyalgia; Chronic Hip Pain; Sleep Apnea; Vertigo. Cardiac Medications: Albuterol; Propranolol; Yuvafem. Allergies: Gabapentin; Lexapro; Sulfas. Cardiac Risk Factors: Family Hx; HLD. Previous Cardiac Procedures: None. Pretest Chest Pain Characteristics: None. Exercise History: Physically active. Physical Disabilities: None. Lung Sounds: Clear bilaterally throughout, anterior and posterior. Heart Sounds: S1 and S2 auscultated. Stress Test Details Test: Exercise stress testing was performed using a Ricki protocol. Rest Stress HR Resting HR Supine: 67 bpmMax Heart Rate (APMHR): 146 bpm Resting HR Standin bpmTarget HR (85% APMHR): 124 bpm Max HR Achieved: 126 bpm % of APMHR: 86 Recovery HR: 85 bpm HR response to stress: Normal HR response to stress. BP Resting BP Supine: 142/84 mmHg Resting BP Standin/60 mmHg Max BP: 190/50 mmHg Recovery BP: 140/66 mmHg BP response to stress: Normal blood pressure response to stress. ECG Resting ECG: Sinus Rhythm. Ectopy: None. Stress ECG: Sinus Tachycardia. ST Change: No significant ST segment changes noted. Arrhythmia: None. Recovery ECG: Sinus Rhythm. Recovery ST Change: No significant ST segment changes noted. Recovery Arrhythmia: None. Clinical Reason for Termination: Target HR Achieved; Chest pain/Anginal equivalent. Stress Symptoms: Chest pain/pressure; Chest fullness; Nausea. Exercise duration: 06 min37 sec Highest Stage Reached: Stage 3: 3.4 mph at 14% grade. Exercise capacity: 7.98 METs Angina Score: Exercise-Limiting Rate Pressure Product: [id number] Stress ECG Conclusion 1. Resting electrocardiogram was normal 2. Patient exercised on the Ricki protocol and completed workload of 8 METS 3. Normal heart rate and blood pressure response to exercise. The patient achieved 86% of maximal predicted heart rate for age 4. There was no electrocardiographic evidence of myocardial ischemia 5. There were no significant dysrhythmias Stress Test Summary STAGETime (mins)Speed (mph)Grade (%)[id number]. denied any symptoms. [id number]/6096Pt. denied any symptoms. [id number]/6297Pt. c/o 2/10, sternal, chest pain/pressure and fullness; ...almost like nausea.4.5 [id number]/7097Pt. c/o 2/10, sternal, chest pain/pressure, fullness, and nausea.7 [id number]. c/o 4/10, sternal, chest pain/pressure, fullness, and nausea. Pt. states that it is radiating up in to her right neck and jaw. Pt. requesting to stop the ETT.10 1 min [id number]. c/o 3/10, sternal, chest pain/pressure, fullness, and nausea that radiates to her right neck and jaw. Pt. also c/o a mild headache. 3 min [id number]. c/o 2/10, sternal, chest pain/pressure, fullness, and nausea; denies any radiation of the pain. Pt. also c/o a mild headache. 6 min [id number]. denies any chest pain/pressure, fullness, or nausea. Pt. denies any headache. Pt. states that all symptoms have resolved. Pt. performed an ETT stress test using the Ricki protocol. ETT was stopped when pt. achieved a heart rate higher than the target heart rate and when pt. requested to stop due to limiting chest pain/pressure, fullness, and nausea that radiated from her sternum up to her right neck and jaw. Prior to beginning the ETT, pt. denied any symptoms. During Stage 1 of exercise, pt. c/o 2/10, sternal, chest pain/pressure and fullness; ...almost like nausea. During Stage 2 of exercise, pt. c/o 2/10, sternal, chest pain/pressure, fullness, and nausea. During Stage 3 of exercise, pt. c/o 4/10, sternal, chest pain/pressure, fullness, and nausea. Pt. states that it is radiating up in to her right neck and jaw. Pt. requesting to stop the ETT. During Stage 1 of recovery, pt. c/o 3/10, sternal, chest pain/pressure, fullness, and nausea that radiates to her right neck and jaw. Pt. also c/o a mild headache. During Stage 2 of recovery, pt. c/o 2/10, sternal, chest pain/pressure, fullness, and nausea; denies any radiation of the pain. Pt. also c/o a mild headache. During Stage 3 of recovery, pt. denies any chest pain/pressure, fullness, or nausea. Pt. denies any headache. Pt. states that all symptoms have resolved. Pt. was conversing pleasantly with nursing staff upon leaving the Stress Lab. Pt. left ambulatory in no apparent distress. Dictated by: ANTOLIN ROBERSONJESUS MARIN Dictated:: 05/11/25 [id number] <Electronically signed by Jesus Dangelo M.D. in [place]> Echocardiogram Summary: 06/06/21 Conclusion Normal left ventricular wall thickness and chamber size. Estimated ejection fraction is 60%. Wall motion is normal Normal right ventricular size and systolic function Both atria are normal in size There is no significant valvular disease Normal estimated right ventricular systolic pressure 26 mmHg Borderline dilated ascending aorta Pulmonary Function Summary: Date of service: 05/04/25 Time of Service: 15:30 Pulmonary Function Test Result Indications: Cough Impression 1. Good patient effort was noted. ATS standards for reproducibility were met. 2. Normal spirometry. 3. Following the administration of a bronchodilator there was not a significant response 4. TLC was normal. No evidence of restrictive lung disease 5. DLCO was normal indicating normal alveolar gas exchange Anesthesia Assessment and Plan Anesthesia History Personal History: No History of Anesthesia Complications Family History: No Family History of Anesthesia Complications Exercise Tolerance Exercise Tolerance: Metabolic Equivalents>4 Pertinent Negatives Pertinent Negatives: No Symptoms of GERD Cardiac & Pulmonary Exam Cardiac Exam: Normal S1/S2 Heart Sounds Pulmonary Exam: Clear Bilateral Breath Sounds Implantable Cardiac Device Does patient have a Pacemaker or an ICD?: No Airway Exam Known Difficult Airway: No Mallampati Class: 2 Mouth Opening: Normal (> 3cm) Thyromental Distance: Greater than 3 cm Neck Range of Motion: Full ROM Neck Circumference: Normal Teeth Condition: Normal Dentition ASA Classification ASA Score: ASA 2 Emergency Case?: No NPO Status NPO Status: NPO Clears >2 hours, Solids >8 hours Anesthesia Plan Resuscitation Status: Full Code Anesthesia Technique: General Anesthesia Airway Planned: Endotracheal Tube Monitors Used: Standard Monitors and SedLine
--- NOTE | 2025-07-05 08:25 | OVAR_PTH ---
PATIENT: Sarah Wiggins LOC: [facility] U#:[id number] AGE/SX: 74/F ROOM: RE07/05/[address]: Nikki Cabral MD : 1950 BED: DIS: 07/05/2025 SPEC #: [id number] RECD: 07/05/25 12:20 STATUS: MARIAM REMelanie #: [id number] SEBAS: 07/05/25 08:[address]: Nikki Cabral DEPT: Surgical Specimen RECD BY: Val Garvin ENTERED: 07/05/25 12:21 SP TYPE: JUAN DIEGO ROMAN DR: Beatrice Dickens MD, DC Tissues: 1 - OVARY NOT TUMOR W OR W/O TUBES 2 - OVARY NOT TUMOR W OR W/O TUBES Procedures: GROSS AND MICRO LEVEL 4 Comments: [id number]
[2025-07-05] MEDS: Bupivacaine 0.25% Pres-Free 30 ML VIAL (08:50)
--- NOTE | 2025-07-05 09:12 | W.PM.OP ---
Operative Note Operative Note PRE-OP DIAGNOSIS: left ovarian cyst PROCEDURE: Laparoscopic bilateral salpingoophorectomy SURGEON: Nikki Cabral ASSISTING SURGEON: Anne Marie Zhu Refer to Anesthesia Record ESTIMATED BLOOD LOSS: 10 COMPLICATIONS: None Patient was transported to: same day Patient's condition: stable Indications: Pt is a 74yo with incidental finding of a left ovarian cyst which on f/u ultrasound was then showing a thick septation. Removal was recommended and she strongly preferred removal here with possible need for re-operation with [employer]/onc if abnormal cells were found. Findings: Normal appearing right ovary and tube. Left ovary with a large cyst as well as what appeared to be a deflated cyst attached to it. Left tube without any obvious fibria. Uterus with one small fibroid in the mid-left side. No other obvious abnormalities throughout the abdominal cavity Procedure Description: After informed consent was signed the patient was taken to the operating room and given general anesthesia. SCDs were placed on her legs. She was prepped and draped in the dorsal lithotomy position in the [facility]. A catheter was placed into the bladder. A speculum was placed into the vagina to expose the cervix and a hulka manipulator was placed into the cervix. The speculum was removed. Gloves were changed and attention was turned to the abdomen. The infraumbilical fold was grasped and injected with 0.25% marcaine. A 12mm incision was made in the infraumbilical fold with the scalpel. A hemostat was used to bluntly dissect the subcuticular layers. The fascia was grasped with cary clamps and incised with the scalpel. The abdominal cavity was immediately visualized. The visiport was used to enter the abdomen under direct visualization. Once entrance to the abdominal cavity was confirmed the CO2 was turned on and the abdomen was insufflated. Two lateral 5mm ports were then placed under direct visualization. The pelvis was inspected and the enlarged left ovary was brought out above the uterus. Due to easier visualization the utero-ovary ligament and vessels were first clamped, cauterized and cut followed by the proximal end of the tube. The the ovary was lifted to visualize the infundibulopelvic ligament and this was clamped cauterized and cut. Dissection was continued through the mesosalpinx until the ovary and tube were released. Good hemostasis was noted. Next attention was turned to the right adnexa. The right infundibulopelvic ligament was identified, clamped, cauterized and cut immediately below the ovary. Dissection was continued along the tube through the mesosalpinx. Then the utero-ovarian ligament and the proximal end of the tube were clamped, cauterized and cut to release the specimen. The 5mm camera was inserted to the side port and a 10mm endocatch bag was inserted through the umbilical port. The right ovary and tube were placed in the bag under good visualization and removed intact. A second endocatch bag was used to remove the left ovary and tube under direct visualization and also intact. The fascial and skin incisions were both enlarged to allow for intact removal. The fascial extension was then closed with 1-0 vicryl in a running fasion. The abdomen was inspected once more and there was a tiny bit of oozing at the left pedicle which was stopped with cautery with the ligasure device. Good hemostasis was noted. The ports were removed. The gas was released from the abdomen. The fascia of the umbilical incision was identified and closed with a running suture of 0 vicryl. The skin incisions were then closed with 4-0 vicryl. Mastisol and steristrips were placed. The manipulator was removed. The patient was placed back into the supine position. She was moved to the stretcher and taken to the recovery room in stable condition. Date of Procedure: 07/05/25
[2025-07-05] MEDS: Droperidol 5 MG/2 ML VIAL 0.625 MG IVP (09:30)
[2025-07-05] MEDS: fentaNYL 100 MCG/2 ML VIAL IVP ×2 (09:36→09:48)
--- NOTE | 2025-07-05 10:50 | W.ANESPOSTOP ---
Postoperative Evaluation Date, Time and Location Date Performed: 07/05/25 Time Performed: 10:50 Patient Location: Day Surgery Unit Vital Signs Most Recent Imported Vital Signs: Most Recent Vital Signs Temp Pulse Resp BP Pulse Ox 36.2 C L 65 16 113/60 94 07/05/25 10:15 07/05/25 10:15 07/05/25 10:15 07/05/25 10:15 07/05/25 10:15 Pain Score Most Recent Pain Score: Most Recent Pain Score Pain Level 2 07/05/25 10:15 Assessment Mental Status: Awake (Alert & Oriented to Patient Baseline) Airway and Respiratory Function: Patent airway with normal (patient baseline) respiratory exam Cardiovascular Function: Hemodynamically Stable Hydration Status: Adequately Hydrated Nausea & Vomiting: Active Nausea or Vomiting Present Nausea and Vomiting Management: Nausea present without vomiting, patient wishes to be discharged Pain: Pain is tolerable per patient Peripheral Nerve Block: Patient did not receive a nerve block
== END 2025-07-05 11:55 | disposition home or self-care (01) ==
PROVIDERS: PCP Family Medicine; Visit Provider Obstetrics & Gynecology
PROC: (CPT 58661; principal; 2025-07-05 07:30)
DX: D27.1 Benign neoplasm of left ovary (principal); N83.8 Other noninflammatory disorders of ovary, fallopian tube and broad ligament
CPT/HCPCS: 58661; 88305; J0131; J0665; J1100; J1790; J1885; J2003; J2405; J2704; J3010

== ENCOUNTER → 2025-07-10 02:31 | Outpatient (CLI) | payer MEDICARE, BC, SELFPAY ==
--- NOTE | 2025-07-10 07:30 | DI.CT_ITS ---
Exam(s) CT CHEST WO EXAM: CT CHEST WO CLINICAL HISTORY: re-evaluate right lower lobe pulmonary nodule,r91.1. TECHNIQUE: Imaging protocol: Axial computed tomography images were obtained and coronal and sagittal reformatted images were created and reviewed. Computer aided detection (CAD) was utilized. CONTRAST MATERIAL: Noncontrast COMPARISON: CT CT CHEST W from 05/03/2025 FINDINGS: Pulmonary parenchyma: Biapical scarring. Stable area of scarring in the superior medial left lower lobe. Stable pleural based nodule medial left lower lobe. Stable 7 millimeter nodule peripherally in the lateral right lower lobe. Stable pleural based nodule at the medial right lower lobe. Stable 5 millimeter nodule right lower lobe. Stable tiny nodule anterior right upper lobe. Interstitial changes: None. Emphysema: None. Tracheobronchial tree: No mucous plugging. No bronchiectasis . Pleura: No effusion or pneumothorax. Heart: The heart is not dilated. The coronary arteries show mild calcifications. Aorta: Thoracic aorta non-dilated. Mild atherosclerotic changes. Lymph nodes: No enlarged lymph nodes. Bones: Degenerative changes are seen. No evidence of compression fracture. Upper abdomen: Unremarkable. Soft tissues: Unremarkable. IMPRESSION: Stable bilateral pulmonary nodules. Stable area of scarring in the superior left lower lobe. Six-month follow-up recommended. RADIATION DOSE DELIVERED: Total DLP Total DLP DATA REPOSITORY: All CT scans at this facility are submitted to the National Radiology Data Registry (NRDR) Dose Index Registry (DIR) with the [employer] (A[employer]). RADIATION OPTIMIZATION: All CT scans at this facility use at least one of these dose optimization techniques: automated exposure control; mA and/or kV adjustment per patient size (includes targeted exams where dose is matched to clinical indication); or iterative reconstruction.
== END ==
LOC: DI 02:32
PROVIDERS: PCP Family Medicine; Visit Provider Internal Medicine Pulmonary Disease
DX: R91.8 Other nonspecific abnormal finding of lung field (principal)
CPT/HCPCS: 71250

== ENCOUNTER → 2025-07-13 13:52 | Outpatient (BNVA) | payer MEDICARE, BC, SELFPAY | PROVIDERS: PCP Family Medicine; Referring Provider Family Medicine; Visit Provider Internal Medicine Pulmonary Disease | DX: J45.991 Cough variant asthma (principal); R91.1 Solitary pulmonary nodule; R05.3 Chronic cough | CPT/HCPCS: 99214 ==